=== PATIENT | female | born 1945 | race Caucasian/White ===

== ENCOUNTER → 2016-09-13 | Outpatient (CLI) | payer MEDICARE ==
[2016-03-09 11:12] VITALS: BP 131/58
[~2016-09-13] MED LIST: ACET1TAB32; ACET1TAB33; ACET325T21 PO; AMIO200T2 PO; ASPI325T11 PO; BACL10TA PO; CALC500T PO; CHOL10003 PO; DILT120C80 PO; FERR-26 PO; FURO40TA4 PO; METO10TA81 PO; METO25TA4 PO; MICO30CR11 TP; NITR100C PO; OMEP40CA5 PO; ONDA4TAB11 PO; OXYC5CAP PO; PANT40TA5 PO; PHEN100C PO; POTA20TA12 PO; PYRI50TA8 PO; TRAM50TA PO; WARF1TAB7 PO; WARF3TAB7
--- NOTE | 2016-09-13 12:04 | RAD ---
Bilateral lower extremity venous duplex study 09/13/2016 Clinical history: History of chronic DVT.. Technique: Using a combination of real time ultrasound imaging and color-flow and pulse Doppler imaging techniques along with graded compression and augmentation, duplex evaluation of the deep venous system of the both lower extremities was performed. Multiple images were obtained. Findings: Comparison study is dated 03/08/2016. There is no sonographic evidence of deep venous thrombosis involving the visualized deep venous structures of either lower extremity. The partially occlusive DVT seen involving the left superficial femoral vein on the previous examination has resolved. A 5.8 cm popliteal cyst is seen posterior to the left knee. Impression: The DVT seen on previous examination involving the left superficial femoral vein has resolved. There is no sonographic evidence of deep venous thrombosis involving the visualized deep venous structures of either lower extremity.
== END | disposition home or self-care (01) ==
LOC: US 07:43
PROVIDERS: ATTEND Family Medicine
DX: I82.503 Chronic embolism and thrombosis of unspecified deep veins of lower extremity, bilateral (principal)
CPT/HCPCS: 93970

== ENCOUNTER → 2016-09-26 | Day surgery (SDC) | payer MEDICARE ==
[~2016-09-26] MED LIST changes: +IV RINGERS,LACTATED 1000ML 1,000 ML IV SCH; +LIDOCAINE 2% PF Vial for OR 5 ML VIAL. ONE; +METOPROLOL TARTRATE 5 MG/5 ML VIAL. IVP ONE; +METOPROLOL TARTRATE 5 MG/5 ML VIAL. ONE; +PROPOFOL 40 ML IV ONE
--- NOTE | 2016-09-26 10:28 | PDOC1 ---
HISTORY & PHYSICAL H&P Obdulia Pittman 1945 09/12/2016 02:20 PM 04/02 [facility] PATIENTS COM[facility] [address] [place] [address]. [phone] Patient: Obdulia Pittman Date of : 1945 Date: 09/12/2016 2:20 PM Visit Type: Office Visit This 70 year old female presents for H/o colorectal polyp and Nausea/vomiting. History of Present Illness: 1. H/o colorectal polyp Prior screening: colonoscopy. Denies risk factors. Pertinent negatives include abdominal pain, change in bowel habits, change in stool caliber, constipation, decreased appetite, diarrhea, melena, nausea, rectal bleeding, vomiting, weight gain and weight loss. Additional information: No family history of colon cancer, No family history of Crohn's/colitis, No NSAID/ASA use and Had colonic polyp removed 3 yrs ago and it was adenomatous polyp. 2. Nausea/vomiting Severity level is: 4. The patient describes it as bilious and clear fluid. The problem ongoing. Denies aggravating factors. Denies relieving factors. Associated symptoms include abdominal pain, bloating, nausea and vomiting. Pertinent negatives include blood in stool, cramping (abdominal), decreased urine output, distention (abdominal), fever and weight loss. Additional information: Has some abdominal pain. Had history of gastric perforation from . Had exploratory and had partial gastrectomy and splenectomy.. INTAKE COMMENTS: Intake Comments: Nurse Note: the pt is here today to schedule an colonoscopy for a h/o colon polyps in 2013. PROBLEM LIST: Problem Description Onset Date DVT 06/11/2014 Acute pulmonary embolism 06/11/2014 residential current use of anticoagulant 05/21/2015 Peptic ulcer disease 01/21/2014 Anemia 01/21/2014 Colonic polyps 01/21/2014 Asthma 01/21/2014 Tachycardia bradycardia syndrome 01/21/2014 Gastroesophageal reflux disease 07/30/2013 Pericardial effusion 04/07/2016 PAST MEDICAL/SURGICAL HISTORY (Detailed) Disease/disorder Onset Date Management Date Comments knee replacement Cataract extraction Allergies Anemia Asthma Colonic polyps Gastroesophageal reflux disease Peptic ulcer disease tachy/ce arrthmia syndrome. DIAGNOSTICS HISTORY: Test Ordered Interpretation Result completed Abdomen MRI WITHOUT Contrast 04/06/2014 abnormal Imp: ther are multiple hepatic cysts. There is intrahepatic and extrahepatic biliary ductal dilation although, there has been cholecystectomy and findings sometimes can be normally seen after cholecystectomy, no intraluminal filling defest identified. There is small to moderate left pleural effusion. 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 04/13/2014 Test Ordered Ordering Comments Modifier Abdomen MRI WITHOUT Contrast 04/06/2014 Medications (Active): Started Medication Directions Instruction Stopped 09/12/2016 acetaminophen 300 mg-codeine 15 mg tablet take 1 tablet by oral route twice daily as needed 01/14/2016 alpha lipoic acid 100 mg capsule take 1 capsule by mouth daily 01/14/2016 aspirin 325 mg tablet take 1 tablet by oral route every hour as needed 01/14/2016 Kelp (iodine) 150 mcg tablet take 1 tablet by mouth daily 07/28/2016 METOPROLOL 25MG TAB TART Take 1 tablet by mouth 2 times every day Probiotic take 1 (1000mg) capsule by mouth daily 01/14/2016 turmeric root extract 500 mg capsule take 1 tablet by mouth daily 01/14/2016 Vitamin B-6 100 mg tablet take 1 tablet by mouth daily 01/14/2016 Vitamin D3 400 unit tablet take 3 tablet by mouth daily Allergies: Ingredient Reaction Medication Name Comment MORPHINE MEPERIDINE HCL Demerol DEXAMETHASONE PENICILLINS BARIUM SULFATE Volumen DIAZEPAM TRAMADOL Itching REVIEW OF SYSTEMS System Neg/Pos Details Constitutional Negative Chills, fever, malaise, weight gain and weight loss. ENMT Negative Sore throat. Eyes Negative Double vision. Respiratory Negative Dyspnea and wheezing. Cardio Negative Chest pain and irregular heartbeat/palpitations. GI Positive Abdominal pain, Bloating, Nausea, Vomiting, See HPI. GI Negative Abdominal cramping, abdominal distention, blood in stool, change in bowel habits, change in stool caliber, constipation, decreased appetite, diarrhea, melena, see HPI and rectal bleeding. Negative Decreased urine output, dysuria and hematuria. Endocrine Negative Cold intolerance and heat intolerance. Psych Negative Anxiety. Integumentary Negative Hives and rash. MS Negative Joint pain. Domingo/Lymph Negative Easy bleeding and easy bruising. Allergic/Immuno Negative Food allergies. VITAL SIGNS Time BP mm/Hg Pulse /min Resp /min Temp F Ht ft Ht in Ht cm Wt lb Wt kg BMI kg/ m2 BSA m2 O2 Sat% 2:04 PM 110/73 93 97.9 5.0 4.50 163.83 280.60 127.278 47.42 97 Time Measured by 2:04 PM Skylar Garzon PHYSICAL EXAM: Exam Findings Details Constitutional Normal Well developed. Eyes Normal Conjunctiva - Right: Normal, Left: Normal. Sclera - Right: Normal, Left: Normal. Nasopharynx Normal Lips/teeth/gums - Normal. Neck Exam Normal Inspection - Normal. Thyroid gland - Normal. Respiratory Normal Inspection - Normal. Auscultation - Normal. Cardiovascular Normal Regular rate and rhythm. No murmurs, gallops, or rubs. Vascular Normal Pulses - Carotids: Normal, Femoral: Normal, Dorsalis pedis: Normal. Abdomen Normal Inspection - Normal. Anterior palpation - No guarding. No abdominal tenderness. No hepatic enlargement. No splenic enlargement. No hernia. No Ascites. Skin Normal Inspection - Normal. Extremity Normal No edema. Psychiatric Normal Oriented to time, place, person, and situation. Appropriate mood and effect. Assessment/Plan # Detail Type Description 1. Assessment Non-intractable cyclical vomiting with nausea (G43.A0). Patient Plan schedule EGD at [facility] Plan Orders Further diagnostic evaluations ordered today include(s) EGD to be performed today. 2. Assessment History of colon polyps (Z86.010). Patient Plan schedule colonoscopy at [facility] Plan Orders Further diagnostic evaluations ordered today include(s) Colonoscopy to be performed today. She is to schedule a follow-up visit with Robinson Villagomez MD upon completion of work-up Electronically signed by: Robinson Villagomez MD 09/12/2016 04:47 PM Document generated by: Robinson Villagomez 09/12/2016 04:47 PM Joanne Islas MD, Family Practice; David Valderrama MD Internal Medicine; Cassandra Meléndez MD, Internal Medicine; Aniya Villagomez MD Internal Medicine; Robinson Villagomez MD, Gastroenterology; Ubaldo Grant MD, Rheumatology, S. Boris Dumont, Physical Medicine/Rehab Chris Heredia APRN ------ 09/26/16 Patient seen and examined. No change in H&P ROBINSON VILLAGOMEZ MD Sep 26, 2016 10:28
--- NOTE | 2016-09-26 11:33 | PDOC4 ---
GI OP Report - Dr. Clinton Date/Time DATE: 09/26/16 TIME: 11:31 Attending Physician Ariel Clinton MD Referring Physician Indications Epigastric abdominal pain, Follow-up of chronic gastric ulcer with perforation Pre-Op See the Anesthesia note for documentation of the administered medications Procedures Upper GI endoscopy Findings - LA Grade A reflux esophagitis. Biopsied. - Normal stomach. - Normal examined duodenum. Plan - Discharge patient to home. - Patient has a contact number available for emergencies. The signs and symptoms of potential delayed complications were discussed with the patient. Return to normal activities tomorrow. Written discharge instructions were provided to the patient. - Resume regular diet. - Continue present medications. - Await pathology results. - Return to my office in 2 weeks. ARIEL CLINTON MD Sep 26, 2016 11:33
--- NOTE | 2016-09-26 11:34 | PDOC4 ---
GI OP Report - Dr. Clinton Date/Time DATE: 09/26/16 TIME: 11:33 Attending Physician Ariel Clinton MD Referring Physician Indications Personal history of colonic polyps Pre-Op See the Anesthesia note for documentation of the administered medications Procedures Colonoscopy Findings - Diverticulosis in the sigmoid colon. - The examination was otherwise normal on direct and retroflexion views. - No specimens collected. Plan - Discharge patient to home. - Patient has a contact number available for emergencies. The signs and symptoms of potential delayed complications were discussed with the patient. Return to normal activities tomorrow. Written discharge instructions were provided to the patient. - Resume regular diet. - Continue present medications. - Perform a single contrast barium enema at appointment to be scheduled. - Repeat colonoscopy in 5 years for surveillance. - Return to my office after studies are complete. ARIEL CLINTON MD Sep 26, 2016 11:34
[2016-09-26 11:52] VITALS: BP 132/74
--- NOTE | 2016-09-27 12:05 | PATHOLOGY ---
PATHOLOGY REPORT * * * * * * * * FINAL DIAGNOSIS: Esophageal biopsy, lower esophagus: - Segment of esophagogastric mucosa showing active chronic inflammation. COMMENT: Sections of the lower esophageal biopsy reveal a segment of esophagogastric mucosa consisting predominantly of gastric mucosa. There is mild to moderate active chronic inflammation. There is no evidence of Gill's change, dysplasia, or malignancy. (JPM:mgr; 09/27/2016) REPORT ELECTRONICALLY SIGNED BY: Spencer Mcginnis M.D. DATE/TIME: 09/27/2016 12:05 * * * * * * * * GROSS PATHOLOGY: Received in formalin labeled "Obdulia Pittman, lower esophagus," is a segment of nicholson soft tissue measuring 0.3 cm in maximum dimension. The specimen is submitted entirely in cassette A1. (JPM; 09/26/16) INITIAL CPT CODE(S): A; 90350 Professional services performed [place] [facility] [address] Technical services performed by [facility] at [address] [place] [address]. SPECIMEN(S) RECEIVED: A.Lower esophagus CLINICAL HISTORY: Dysphagia, history of colon polyps; reflux esophagitis PATIENT: OBDULIA PITTMAN /AGE: 8 1945 (Age: 70) PATIENT #: [id number] ALT CASE #: SPECIMEN COLLECTION DATE: 09/26/2016 SPECIMEN RECEIVED DATE: 09/26/2016 [facility] - [address] [place] [address] - PHONE: [phone] * * * END OF REPORT * * *
== END | disposition home or self-care (01) ==
LOC: ENDOS 10:08
PROVIDERS: ATTEND Internal Medicine Gastroenterology
DX: Z09 Encounter for follow-up examination after completed treatment for conditions other than malignant neoplasm (principal); Z87.19 Personal history of other diseases of the digestive system; K57.30 Diverticulosis of large intestine without perforation or abscess without bleeding; K56.2 Volvulus; K21.0 Gastro-esophageal reflux disease with esophagitis; K25.5 Chronic or unspecified gastric ulcer with perforation; Z98.41 Cataract extraction status, right eye; Z98.42 Cataract extraction status, left eye; Z90.49 Acquired absence of other specified parts of digestive tract; Z86.718 Personal history of other venous thrombosis and embolism; J45.909 Unspecified asthma, uncomplicated; E66.9 Obesity, unspecified; Z68.45 Body mass index [BMI] 70 or greater, adult; Z87.39 Personal history of other diseases of the musculoskeletal system and connective tissue; Z86.14 Personal history of Methicillin resistant Staphylococcus aureus infection; Z88.6 Allergy status to analgesic agent; Z88.0 Allergy status to penicillin; Z88.8 Allergy status to other drugs, medicaments and biological substances
CPT/HCPCS: 43239; 45378; 88305; J2704; J3490

== ENCOUNTER → 2017-01-16 | Outpatient (CLI) | payer MEDICARE ==
[2016-09-26 11:52] VITALS: BP 132/74
[~2017-01-16] MED LIST changes: -IV RINGERS,LACTATED 1000ML 1,000 ML IV SCH; -LIDOCAINE 2% PF Vial for OR 5 ML VIAL. ONE; -METOPROLOL TARTRATE 5 MG/5 ML VIAL. IVP ONE; -METOPROLOL TARTRATE 5 MG/5 ML VIAL. ONE; -PROPOFOL 40 ML IV ONE
--- NOTE | 2017-01-16 12:19 | CARD ---
APPROVED REPORT EXAM: Two-dimensional and M-mode echocardiogram with Doppler and color Doppler. Other Information Quality : Average INDICATION Pericardial Effusion 2D DIMENSIONS Left Atrium(2D)4.4 (1.6-4.0cm)IVSd1.2 (0.7-1.1cm) Aortic Root(2D)3.3 (2.0-3.7cm)LVDd4.3 (3.9-5.9cm) LVOT Diameter1.7 (1.8-2.4cm)PWd1.3 (0.7-1.1cm) LVDs3.1 (2.5-4.0cm)FS (%) 29.1 % SV46.9 mlLVEF(%)56.1 (>50%) Aortic Valve AoV Peak Talon.99.7cm/sAoV VTI21.3cm AO Peak GR.4.0mmHgLVOT Peak Talon.89.1cm/s AO Mean GR.2mmHgAVA (VMAX)2.10cm2 JONATHAN (VTI)2.20cm2 Mitral Valve MV E Nsjsbvst80.8cm/sMV DECEL VEMA690wi MV A Qscslbez55.2cm/sE/A Ratio0.7 Tricuspid Valve TR P. Apegkjuq498ij/sRAP CHUIAVDR3ddBy TR Peak Gr.40hkNcRZTL63vcNb LEFT VENTRICLE The left ventricle is normal size. There is mild concentric left ventricular hypertrophy. The left ve ntricular systolic function is normal. The Ejection Fraction is 50-55%. There is normal LV segmental wall motion. Transmitral Doppler flow pattern is Grade I-abnormal relaxation pattern. RIGHT VENTRICLE The right ventricle is normal size. The right ventricle is mildly hypertrophied. The right ventricula r systolic function is normal. ATRIA The left atrium is moderately dilated. The right atrium is mildly dilated. Possible mobile interatria l septum noted. AORTIC VALVE The aortic valve is mildly thickened but opens well. Doppler and Color Flow revealed no significant a ortic regurgitation. There is no significant aortic valvular stenosis. MITRAL VALVE The mitral valve leaflets are mildly calcified. There is no evidence of mitral valve prolapse. There is no mitral valve stenosis. Doppler and Color Flow revealed no mitral valve regurgitation noted. TRICUSPID VALVE The tricuspid valve is normal in structure and function. Doppler and Color Flow revealed mild tricusp id regurgitation. There is mild pulmonary hypertension. The PA pressure was estimated at 32 mmHg. The re is no tricuspid valve prolapse or vegetation. There is no tricuspid valve stenosis. PULMONIC VALVE The pulmonary valve is normal in structure and function. Doppler and Color Flow revealed no pulmonic valvular regurgitation. There is no pulmonic valvular stenosis. GREAT VESSELS The aortic root is normal in size. The ascending aorta is normal in size. The IVC is normal in size a nd collapses >50% with inspiration. PERICARDIAL EFFUSION There is no pleural effusion. There is no evidence of significant pericardial effusion. Critical Notification Critical Value: No <Conclusion> Technically difficult study. The left ventricular systolic function is normal. The Ejection Fraction is 50-55%. There is normal LV segmental wall motion. Transmitral Doppler flow pattern is Grade I-abnormal relaxation pattern. The left atrium is moderately dilated. Mild tricuspid regurgitation. The PA pressure was estimated at 32 mmHg. There is no evidence of significant pericardial effusion.
== END | disposition home or self-care (01) ==
LOC: ECHO 07:50
PROVIDERS: ATTEND Internal Medicine Cardiovascular Disease
DX: I07.1 Rheumatic tricuspid insufficiency (principal); I31.3 Pericardial effusion (noninflammatory)
CPT/HCPCS: 93306

== ENCOUNTER → 2017-07-27 | Outpatient (CLI) | payer MEDICARE | END | disposition home or self-care (01) | LOC: ECHO 08:30 | DX: R00.2 Palpitations (principal); R01.1 Cardiac murmur, unspecified | CPT/HCPCS: 93306 ==

== ENCOUNTER → 2017-10-09 | Outpatient (CLI) | payer MEDICARE ==
[~2017-10-09] MED LIST changes: -ACET1TAB32; -ACET1TAB33; -ACET325T21 PO; -AMIO200T2 PO; -ASPI325T11 PO; -BACL10TA PO; -CALC500T PO; -CHOL10003 PO; -DILT120C80 PO; -FERR-26 PO; -FURO40TA4 PO; +IOHEXOL 240 MG/ML 50ML VIAL. PO; +IOHEXOL 300 MG/ML 100ML VIAL. IV; -METO10TA81 PO; -METO25TA4 PO; -MICO30CR11 TP; -NITR100C PO; -OMEP40CA5 PO; -ONDA4TAB11 PO; -OXYC5CAP PO; -PANT40TA5 PO; -PHEN100C PO; -POTA20TA12 PO; -PYRI50TA8 PO; -TRAM50TA PO; -WARF1TAB7 PO; -WARF3TAB7
== END | disposition home or self-care (01) ==
LOC: CT 12:33
DX: K43.9 Ventral hernia without obstruction or gangrene (principal); K57.90 Diverticulosis of intestine, part unspecified, without perforation or abscess without bleeding; M47.897 Other spondylosis, lumbosacral region; I11.0 Hypertensive heart disease with heart failure; I50.9 Heart failure, unspecified; K21.9 Gastro-esophageal reflux disease without esophagitis; J45.909 Unspecified asthma, uncomplicated; E78.5 Hyperlipidemia, unspecified; E78.00 Pure hypercholesterolemia, unspecified
CPT/HCPCS: 74177; Q9966; Q9967

== ENCOUNTER 2018-01-30 08:40 | Outpatient (CLI) | payer MEDICARE ==
[2018-01-30] VITALS (9 sets, daily range): BP systolic 91–177; BP diastolic 65–84
[~2018-01-30] VITALS: Ht 170.2 cm; Wt 113.9 kg
[~2018-01-30 08:40] MED LIST changes: +ACET1TAB32; +ACET1TAB33; +ACET325T21 PO; +AMIO200T4 PO; +ASPI325T11 PO; +BACL10TA PO; +CALC500T PO; +CHOL10003 PO; +COCO1000 PO; +DILT120C80 PO; +FERR325T14 PO; +FURO40TA4 PO; -IOHEXOL 240 MG/ML 50ML VIAL. PO; -IOHEXOL 300 MG/ML 100ML VIAL. IV; +MAGN400C PO; +METO10TA81 PO; +METO25TA4 PO; +MICO30CR11 TP; +NITR100C PO; +OMEP40CA5 PO; +ONDA4TAB11 PO; +OXYC5CAP PO; +PANT40TA5 PO; +PHEN100C PO; +POTA10TA17 PO; +POTA20TA12 PO; +PYRI50TA8 PO; +SERT50TA PO; +TRAM50TA PO; +WARF1TAB69 PO; +WARF3TAB50
[2018-01-30] MEDS ORDERED: IOHEXOL 240 MG/ML 50ML VIAL. PO ONE (09:00)
[2018-01-30] MEDS ORDERED: IOHEXOL 300 MG/ML 100ML VIAL. IV ONE (09:00)
[2018-01-30] MEDS ORDERED: IOHEXOL 300 MG/ML 100ML VIAL. ONE (09:30)
[2018-01-30] MEDS ORDERED: IOHEXOL 240 MG/ML 50ML VIAL. ONE (09:30)
--- NOTE | 2018-01-30 10:51 | RAD ---
CT Abdomen and Pelvis With Intravenous Contrast: History: Abdominal pain. Seroma status post surgery. Comparison: CT abdomen pelvis October 09, 2017. Technique: After administration of oral and intravenous contrast, 75 mL Omnipaque-300, CT of the abdomen and pelvis was performed. Exposure: One or more of the following individualized dose reduction techniques were utilized for this examination: 1. Automated exposure control 2. Adjustment of the mA and/or kV according to patient size 3. Use of iterative reconstruction technique Findings: Small hiatal hernia is seen. Liver demonstrates numerous cysts. Spleen is surgically absent. Pancreas is unremarkable. Gallbladder is absent. Intrahepatic and extra hepatic biliary dilatation is favored to be reservoir effect from patient's cholecystectomy. IVC filter is seen. Bilateral kidneys enhance symmetrically. No bowel obstruction or inflammation is identified. Urinary bladder is unremarkable. Uterus is absent. Right ovary demonstrates a small intermediate attenuation lesion measuring about 2.5 cm; this is not confidently seen on previous study. There has been interval ventral hernia repair. At the level of umbilicus, there is a subcutaneous fluid collection which measures 8.2 x 2.4 centimeters in maximum axial dimension x 4.4 cm in craniocaudal dimension. Within this fluid collection (which is located just superficial to the fascia of rectus abdominis musculature) demonstrates several small foci of gas. Subcutaneous soft tissues of the ventral abdominal wall demonstrates additional ill-defined foci of stranding scattered amount of fluid. Small radiodensities seen at the level of umbilicus, could be small surgical clip. There is grade 1 spondylolisthesis at L5-S1 secondary to bilateral L5 pars defects. Multilevel spinal degeneration is present. Impression: 1. Interval ventral hernia repair. There is subcutaneous soft tissue stranding and irregularity, presumably postoperative. At the level of the umbilicus, just superficial to the rectus abdominis musculature, there is a focal fluid collection with several foci of gas; the fluid collection measures 8.2 x 2.4 cm in maximum axial dimension x4.4 cm in craniocaudal dimension. If surgery was performed less than 14 days ago, the foci of gas could be within normal limits in a postoperative seroma/hematoma; if the surgery was performed greater than 14 days ago, then findings would be compatible with gas-forming infection/abscess or a seroma with communication to the skin surface. 2. Interval development of apparent right ovarian lesion measuring 2.5 cm. Attempt at evaluation with ultrasound could be made. 3. Less salient findings as above. Electronically signed by: David Leyva MD (01/30/2018 10:48 AM) [facility]
[2018-01-30 11:09] LABS: BASO % 0 % (0-3); EOS # 0.4 x10^3/uL (0.0-0.7); EOS % 3 % (0-3); HEMATOCRIT 40.8 % (36.0-47.0); HEMOGLOBIN 13.7 g/dL (12.0-15.5); LYMPH # 3.2 x10^3/uL (1.0-4.8); LYMPH % 29 % (24-48); MEAN CORPUSCULAR HEMOGLOBIN 30 pg (25-35); MEAN CORPUSCULAR HGB CONC 34 g/dL (31-37); MEAN CORPUSCULAR VOLUME 90 fL (79-100); MONO % 9 % (0-9); NEUT # 6.5 x10^3uL (1.8-7.7); NEUT % 59 % (31-73); PLATELET COUNT 371 x10^3/uL (140-400); RED BLOOD COUNT 4.52 x10^6/uL (3.50-5.40); RED CELL DISTRIBUTION WIDTH 15.2 % (11.5-14.5); WHITE BLOOD COUNT 11.1 x10^3/uL (4.0-11.0)
[2018-01-30 11:33] LABS: PROTHROMBIN TIME PATIENT 14.1 SEC (11.7-14.0)
[2018-01-30] MEDS ORDERED: LIDOCAINE WITH 8.4% SOD BICARB 3 ML DISP.SYRIN. ONE (12:30)
[2018-01-30] MEDS ORDERED: MIDAZOLAM HCL/PF 2 MG/2 ML VIAL. ONE (12:49)
[2018-01-30] MEDS ORDERED: fentaNYL PF VIAL 100 MCG/2 ML VIAL ONE (12:49)
[2018-01-30] MEDS ORDERED: LIDOCAINE WITH 8.4% SOD BICARB 3 ML DISP.SYRIN. INJ ONE (13:15)
[2018-01-30] MEDS ORDERED: MIDAZOLAM HCL/PF 2 MG/2 ML VIAL. IV ONE (13:15)
[2018-01-30] MEDS ORDERED: fentaNYL PF VIAL 100 MCG/2 ML VIAL IV ONE (13:15)
== END 2018-01-30 14:30 | disposition home or self-care (01) ==
LOC: RAD 08:40
PROVIDERS: ATTEND Specialist
DX: L76.34 Postprocedural seroma of skin and subcutaneous tissue following other procedure (principal); Y83.8 Other surgical procedures as the cause of abnormal reaction of the patient, or of later complication, without mention of misadventure at the time of the procedure
CPT/HCPCS: 10030; 36415; 74177; 77012; 85025; 85610; 85730; 87071; 87075; 87186; A4215; C1729; C1894; J2250; J3010; Q9966; Q9967; 99152; 99153

== ENCOUNTER → 2018-07-04 | Outpatient (CLI) | payer MEDICARE, OTHER ==
[2018-01-30 14:20] VITALS: BP 123/76
[~2018-07-04] MED LIST changes: -CALC500T PO; +CALC500T31 PO; +CONTRAST GIVEN. MC PRN; -DILT120C80 PO; +DILT120C85 PO; +IOHEXOL 240 MG/ML 50ML VIAL. PO ONE; +IOHEXOL 300 MG/ML 100ML VIAL. IV ONE
[2018-07-04 14:31] LABS: GFR 54.5
--- NOTE | 2018-07-04 17:47 | RAD ---
CT of the abdomen and pelvis with contrast, 07/04/2018: HISTORY: Abdominal pain and bruising after hernia repair site Multidetector CT imaging was performed following oral and IV administration of contrast. Comparison is made to a study from 01/30/2018. There is streaky increased density in the subcutaneous soft tissues of the anterior abdominal wall centered at the midline in the periumbilical region. Similar findings were present on the previous study, compatible with chronic inflammation. There is gas related to an ill-defined fluid collection within this process as seen on image 31 of series #2. This small fluid collection measures approximately 3 x 4 cm. This portion of this inflammatory process has worsened since the previous study. On the previous study there was a small elliptical fluid collection related to the inferior aspect of this process which has resolved. No extension of this process into the abdominal cavity is seen. There is mild basilar linear scarring. Multiple hepatic cysts are again noted. There is unchanged prominence of the common hepatic duct probably secondary to the postcholecystectomy state. No pancreatic abnormality is seen. The spleen is absent, presumably on a postsurgical basis. No renal abnormality is detected. There is mild aortic calcific plaquing. An inferior vena cava filter is in place in an infrarenal location. No abdominal or pelvic adenopathy is seen. The uterus is surgically absent. The bowel loops are not dilated. A small hiatal hernia is noted. No free fluid or free air is seen within the abdomen or pelvis. Moderate multilevel degenerative changes are present in the spine. There is a mild anterolisthesis at L5-S1. IMPRESSION: 1. Chronic or recurrent inflammatory process in the anterior abdominal wall containing a small irregular collection of fluid and gas raising the possibility of abscess. 2. Additional miscellaneous chronic findings as described above. PQRS Compliance Statement: One or more of the following individualized dose reduction techniques were utilized for this examination: 1. Automated exposure control 2. Adjustment of the mA and/or kV according to patient size 3. Use of iterative reconstruction technique Electronically signed by: Renan Burkett MD (07/04/2018 5:44 PM) [facility]
== END | disposition home or self-care (01) ==
LOC: CT 13:42
PROVIDERS: ATTEND Specialist
DX: K44.9 Diaphragmatic hernia without obstruction or gangrene (principal); K43.9 Ventral hernia without obstruction or gangrene; K76.89 Other specified diseases of liver
CPT/HCPCS: 36415; 74177; 82565; 84520; Q9966; Q9967

== ENCOUNTER → 2018-08-01 | Outpatient (CLI) | payer MEDICARE, OTHER ==
[2018-01-30 14:20] VITALS: BP 123/76
[~2018-08-01] MED LIST changes: -CONTRAST GIVEN. MC PRN; -IOHEXOL 240 MG/ML 50ML VIAL. PO ONE; -IOHEXOL 300 MG/ML 100ML VIAL. IV ONE
--- NOTE | 2018-08-01 09:22 | CARD ---
MR#: [id number] Date of Study: 08/01/2018 Ordering Physician: AMMON BONDS, Referring Physician: AMMON BONDS, Tech: Mojgan Zuñiga JAVIER APPROVED REPORT EXAM: Two-dimensional and M-mode echocardiogram with Doppler and color Doppler. Other Information Quality : Good INDICATION Pericardial Effusion 2D DIMENSIONS RVDd3.8 (2.9-3.5cm)Left Atrium(2D)4.2 (1.6-4.0cm) IVSd1.0 (0.7-1.1cm)Aortic Root(2D)2.7 (2.0-3.7cm) LVDd4.9 (3.9-5.9cm)LVOT Diameter2.2 (1.8-2.4cm) PWd0.8 (0.7-1.1cm)LVDs3.2 (2.5-4.0cm) FS (%) 34.5 %SV72.4 ml LVEF(%)63.4 (>50%) Aortic Valve AoV Peak Talon.111.2cm/sAoV VTI22.3cm AO Peak GR.4.9mmHgLVOT Peak Talon.82.6cm/s LVOT VTI 23.97cmAO Mean GR.3mmHg JONATHAN (VMAX)2.26cb0EAT (VTI)4.11cm2 Mitral Valve MV E Ttnsqduj47.6cm/sMV DECEL BACU777wt MV A Jkmjevbe51.8cm/sMV QVK05oi E/A Ratio0.8MVA (PHT)2.63cm2 TDI E/Lateral E'7.9E/Medial E'9.6 Tricuspid Valve TR P. Dhrxtwky483ur/sRAP LIRINGES3arAo TR Peak Gr.12dfMzGUWO08lxCn Pulmonary Vein S1 Zuchxwtr35.0cm/sD2 Xhwipbqx92.4cm/s LEFT VENTRICLE The left ventricle is normal size. There is normal left ventricular wall thickness. The left ventricu lar systolic function is normal. The Ejection Fraction is 55-60%. There is normal LV segmental wall m otion. Transmitral Doppler flow pattern is Grade I-abnormal relaxation pattern. RIGHT VENTRICLE The right ventricle is normal size. The right ventricular systolic function is normal. ATRIA The left atrium is mildly dilated. The right atrium is moderately dilated. The interatrial septum is intact with no evidence for an atrial septal defect or patent foramen ovale as noted on 2-D or Dopple r imaging. AORTIC VALVE The aortic valve is calcified but opens well. Doppler and Color Flow revealed no significant aortic r egurgitation. There is no significant aortic valvular stenosis. MITRAL VALVE The mitral valve is calcified but opens well. There is no evidence of mitral valve prolapse. There is no mitral valve stenosis. Doppler and Color-flow revealed trace mitral regurgitation. TRICUSPID VALVE The tricuspid valve is normal in structure and function. Doppler and Color Flow revealed trace tricus pid regurgitation. The PA pressure was estimated at 27 mmHg. There is no tricuspid valve stenosis. PULMONIC VALVE The pulmonic valve is not well visualized. Doppler and Color Flow revealed no pulmonic valvular regur gitation. There is no pulmonic valvular stenosis. GREAT VESSELS The aortic root is normal in size. The ascending aorta is mildly dilated at 3.4 cm. The IVC is normal in size and collapses >50% with inspiration. PERICARDIAL EFFUSION There is no evidence of significant pericardial effusion. Critical Notification Critical Value: No <Conclusion> The left ventricular systolic function is normal. The Ejection Fraction is 55-60%. There is normal LV segmental wall motion. Transmitral Doppler flow pattern is Grade I-abnormal relaxation pattern. Trace mitral regurgitation. Trace tricuspid regurgitation. The PA pressure was estimated at 27 mmHg. There is no evidence of significant pericardial effusion. Signed by : Adrien Mendez, Electronically Approved : 08/01/2018 09:21:50
== END | disposition home or self-care (01) ==
LOC: ECHO 08:10
PROVIDERS: ATTEND Internal Medicine Cardiovascular Disease
DX: I08.0 Rheumatic disorders of both mitral and aortic valves (principal); I31.3 Pericardial effusion (noninflammatory)
CPT/HCPCS: 93306

== ENCOUNTER 2018-12-25 08:57 | Inpatient (IN) | payer MEDICARE, OTHER ==
[~2018-12-25] VITALS: Ht 170.2 cm; Wt 112.5 kg
[~2018-12-25 08:57] MED LIST changes: -DILT120C85 PO; +DILT120C99 PO; +OMEP40CA45 PO; -OMEP40CA5 PO; -PANT40TA5 PO; +PANT40TA77 PO
--- NOTE | 2018-12-25 09:47 | RAD ---
Examination: FOOT RIGHT 3V History: Fall, pain Comparison/Correlation: None Findings: Total 3 images of the right foot were obtained. Osteopenia is noted. No acute fracture or bony destruction. Small calcaneal spur is present. Significant interphalangeal joint space narrowing is identified. Degenerative changes of the midfoot also seen. Impression: No fracture. Electronically signed by: Bereket Rodrigues MD (12/25/2018 9:44 AM) [facility]
--- NOTE | 2018-12-25 09:59 | RAD ---
Examination: KNEE BILAT 3V History: Fall, pain Comparison/Correlation: None Findings: 3 images of the right knee and 3 images of the left knee were obtained. Osteopenia noted. Right knee There is a fat fluid level within the right knee joint capsule of large size. Total right knee joint arthroplasty is present. No evidence of loosening. Left knee Severe left medial compartment narrowing is present. Spurring about the left knee is noted. Patellofemoral compartment narrowing is evident. Small left knee joint effusion is present. Impression: Severe left knee joint degenerative changes. Right lipohemarthrosis. Correlate with surgical history. Fracture line is not evident. Correlate for possibility of occult fracture. Electronically signed by: Bereket Rodrigues MD (12/25/2018 9:56 AM) [facility]
--- NOTE | 2018-12-25 11:13 | RAD ---
Examination: CT LOWER EXTREMITY WO RIGHT History: Right knee pain Comparison/Correlation: 12/25/2018 bilateral knee x-ray exam Findings: Axial images of the right knee were obtained without contrast. Sagittal and coronal reformatted images were provided. Seated in streak artifact limits evaluation due to the presence of right total knee joint prosthesis.. No loosening suggested although streak artifact limits evaluation. Lipohemarthrosis is present. Fracture may present involving the distal femoral metaphysis posteromedially near the prosthesis. Subtle cortical defect is questioned at this site on sagittal image 34 of series 9. This finding is not well delineated on other planes possibly due to small size and streak artifact. Proximal tibia is unremarkable. Patella is grossly unremarkable. Proximal fibula is unremarkable. Quadriceps and patellar tendons appear to be intact on the basis of CT imaging. Impression: Nondisplaced fracture is questioned involving the distal femoral metaphysis posteromedially near the prosthesis. Lipohemarthrosis. PQRS Compliance Statement: One or more of the following individualized dose reduction techniques were utilized for this examination: 1. Automated exposure control 2. Adjustment of the mA and/or kV according to patient size 3. Use of iterative reconstruction technique Electronically signed by: Bereket Rodrigues MD (12/25/2018 11:10 AM) [facility]
[2018-12-25 15:15] VITALS: BP 102/60
[2018-12-25] MEDS ORDERED: ACETAMINOPHEN 325 MG TABLET. PO PRN (15:15)
[2018-12-25] MEDS ORDERED: ONDANSETRON PF 4 MG/2 ML VIAL. IV PRN (15:15)
--- NOTE | 2018-12-25 15:26 | PHYS DOC ---
Past Medical History Past Medical History: High Cholesterol, Other Additional Past Medical Histor: DVT, PE on chronic coumadin, tachycardia Past Surgical History: Knee Replacement, Other Additional Past Surgical Histo: spleenectomy, 2 hernia repairs and part of stomach removed, IVC filter, rabia Alcohol Use: None Drug Use: None Adult General Chief Complaint Chief Complaint: MECHANICAL FALL HPI HPI Patient is a 73 year old female who presents to the ED today complaining of 8 out of 10 right knee pain, right foot pain, left knee pain that began yesterday after she missed a step on her deck and fell landing on the knee. Patient states she was able to ambulate yesterday but this morning she was unable to ambulate. Patient denies any loss of consciousness when she fell. Denies any head and neck pain. She states her pain is worse on weight bearing. She states immobilization has been relieving some of the pain. She states she has previous history of right knee replacement approximately 8-9 years ago. Review of Systems Review of Systems Constitutional: Denies fever or chills [] : Denies dysuria or hematuria [] Musculoskeletal: Reports right knee pain, left knee pain, right foot pain. Integument: Denies rash or skin lesions [] Neurologic: Denies headache, focal weakness or sensory changes [] Endocrine: Denies polyuria or polydipsia [] All other systems were reviewed and found to be within normal limits, except as documented in this note. Allergies Allergies Allergies Coded Allergies Type Severity Reaction Last Updated Verified Penicillins Allergy Intermediate Hives 12/31/17 Yes dexamethasone Allergy Intermediate 12/31/17 Yes diazepam Allergy Intermediate 12/31/17 Yes meperidine Allergy Intermediate Hives 12/31/17 Yes morphine Allergy Intermediate Nausea and Vomiting 12/31/17 Yes Physical Exam Physical Exam Constitutional: Well developed, well nourished, no acute distress, non-toxic appearance. [] Skin: Warm, dry, no erythema, no rash. [] Back: No tenderness, no CVA tenderness. [] Extremities: Morbidly obese patient, right knee with old healed surgical incision on the anterior aspect. Limited range of motion to the right knee due to pain. +2 right pedal pulse. Cap refill less than 2 seconds the right lower extremity. Neurologic: Alert and oriented X 3, normal motor function, normal sensory function, no focal deficits noted. [] Psychologic: Affect normal, judgement normal, mood normal. [] Current Patient Data Vital Signs Vital Signs Date Time Temp Pulse Resp B/P (MAP) Pulse Ox O2 Delivery O2 Flow Rate FiO2 12/25/18 13:54 76 16 96 12/25/18 09:41 98.4 136/77 (96) Room Air 98.4 EKG EKG [] Radiology/Procedures Radiology/Procedures []PROCEDURE: FOOT RIGHT 3V Examination: FOOT RIGHT 3V History: Fall, pain Comparison/Correlation: None Findings: Total 3 images of the right foot were obtained. Osteopenia is noted. No acute fracture or bony destruction. Small calcaneal spur is present. Significant interphalangeal joint space narrowing is identified. Degenerative changes of the midfoot also seen. Impression: No fracture. Electronically signed by: Bereket Disla MD (12/25/2018 9:44 AM) [facility] DICTATED and SIGNED BY: BEREKET DISLA MD DATE: 12/25/18 0944 PROCEDURE: KNEE BILAT 3V Examination: KNEE BILAT 3V History: Fall, pain Comparison/Correlation: None Findings: 3 images of the right knee and 3 images of the left knee were obtained. Osteopenia noted. Right knee There is a fat fluid level within the right knee joint capsule of large size. Total right knee joint arthroplasty is present. No evidence of loosening. Left knee Severe left medial compartment narrowing is present. Spurring about the left knee is noted. Patellofemoral compartment narrowing is evident. Small left knee joint effusion is present. Impression: Severe left knee joint degenerative changes. Right lipohemarthrosis. Correlate with surgical history. Fracture line is not evident. Correlate for possibility of occult fracture. Electronically signed by: Bereket Disla MD (12/25/2018 9:56 AM) [facility] DICTATED and SIGNED BY: BEREKET DISLA MD DATE: 12/25/18 0956 PROCEDURE: CT LOWER EXTREMITY WO RIGHT Examination: CT LOWER EXTREMITY WO RIGHT History: Right knee pain Comparison/Correlation: 12/25/2018 bilateral knee x-ray exam Findings: Axial images of the right knee were obtained without contrast. Sagittal and coronal reformatted images were provided. Seated in streak artifact limits evaluation due to the presence of right total knee joint prosthesis.. No loosening suggested although streak artifact limits evaluation. Lipohemarthrosis is present. Fracture may present involving the distal femoral metaphysis posteromedially near the prosthesis. Subtle cortical defect is questioned at this site on sagittal image 34 of series 9. This finding is not well delineated on other planes possibly due to small size and streak artifact. Proximal tibia is unremarkable. Patella is grossly unremarkable. Proximal fibula is unremarkable. Quadriceps and patellar tendons appear to be intact on the basis of CT imaging. Impression: Nondisplaced fracture is questioned involving the distal femoral metaphysis posteromedially near the prosthesis. Lipohemarthrosis. PQRS Compliance Statement: One or more of the following individualized dose reduction techniques were utilized for this examination: 1. Automated exposure control 2. Adjustment of the mA and/or kV according to patient size 3. Use of iterative reconstruction technique Electronically signed by: Bereket Disla MD (12/25/2018 11:10 AM) [facility] DICTATED and SIGNED BY: BEREKET DISLA MD DATE: 12/25/18 1110 Course & Med Decision Making Course & Med Decision Making Pertinent Labs and Imaging studies reviewed. (See chart for details) This is a 73-year-old female patient who presents to the ED today complaining of right knee pain status post falling yesterday. Right knee x-rays interpreted by radiologist were noted for possible occult fx of the distal femur. CT of the right knee was obtained CT of the right knee noted for -Nondisplaced fracture is questioned involving the distal femoral metaphysis posteromedially near the prosthesis. Lipohemarthrosis. Spoke with Dr. Guillaume who reviewed the CAT scan, he stated he does not see any fracture on the CT. He requested we put patient in a knee immobilizer and see if she can ambulate, she is unable to ambulate she can be admitted under the hospitalist. Patient was placed in a knee immobilizer to the ED RN, neurovascular exam, the try to ambulate, she was unable to put weight on the right lower extremity. Spoke with Dr. Torres who accepted patient for admission Routine consult placed for orthopedic doctor Allyson Disclaimer Allyson Disclaimer This electronic medical record was generated, in whole or in part, using a voice recognition dictation system. Departure Departure Impression: Primary Impression: Knee pain Additional Impressions: Fall Unable to ambulate Right foot sprain Left knee pain Disposition: ADMITTED INPATIENT Condition: STABLE Referrals: NICKY BREAUX (PCP) Problem Qualifiers Primary Impression: Knee pain Chronicity: acute Laterality: right Qualified Codes: M25.561 - Pain in right knee Additional Impressions: Fall Encounter type: initial encounter Qualified Codes: W19.XXXA - Unspecified fall, initial encounter Right foot sprain Encounter type: initial encounter Qualified Codes: S93.601A - Unspecified sprain of right foot, initial encounter Left knee pain Chronicity: acute Qualified Codes: M25.562 - Pain in left knee LETY DONALD SCAFFOLD ERECTOR Dec 25, 2018 15:26
[2018-12-25] MEDS ORDERED: BUPR150T11 (16:30)
[2018-12-25] MEDS ORDERED: FLU VAX QS 2019-20 (36MOS+)/PF 0.5 ML SYRINGE. VAX IM ONE (16:30)
[2018-12-25] MEDS ORDERED: TURM500C7 PO (16:30)
[2018-12-25] MEDS: oxyCODONE/APAP 5/325 1 TAB TABLET PO PRN (18:07)
[2018-12-25 19:00] VITALS: BP 104/51
[2018-12-25] MEDS: buPROPion SR 150 MG TABLET.SA PO SCH (20:25)
[2018-12-25] MEDS: METOPROLOL TART IMMED RELEASE 25 MG TABLET. PO SCH (20:27)
[2018-12-25 23:00] VITALS: BP 117/63
[2018-12-26] VITALS (8 sets, daily range): BP systolic 92–130; BP diastolic 40–75
--- NOTE | 2018-12-26 00:53 | CONS ---
DATE OF CONSULTATION: 12/25/2018 ORTHOPEDIC CONSULTATION REASON FOR CONSULTATION: Fall with right knee pain. REQUESTING PHYSICIAN: Joanne Torres MD HISTORY OF PRESENT ILLNESS: The patient is a 73-year-old female who missed a step on her deck and fell landing really on the right knee, pain somewhat less than the left knee. She indicates severe pain since that time and originally, she could walk after landing on it, but the next morning, was unable to ambulate. She has a right total knee arthroplasty done in [place] in 2009 that has otherwise done well. She has some arthritis in the left knee, but is livable to this point. She denies any loss of consciousness associated with the injury. PAST MEDICAL HISTORY: Significant for a history of DVT and pulmonary embolism and is therefore on Coumadin therapy. She has tachycardia and hypercholesterolemia. PAST SURGICAL HISTORY: Right knee replacement, multiple hernia repairs, part of her stomach removed. She had an IVC filter for the DVT treatment as well. MEDICATIONS: List is reviewed. ALLERGIES: INCLUDE PENICILLIN, DEXAMETHASONE, MEPERIDINE, MORPHINE AND DIAZEPAM. REVIEW OF SYSTEMS: She denies any loss of consciousness. No focal weakness, numbness, tingling. No neck or back pain, headache, visual changes. Significant for the right knee pain, mainly sudden post fall. PHYSICAL EXAMINATION: EXTREMITIES: She is tender on the right knee primarily over the medial collateral ligament and tender on valgus stress. There is no gross opening. She still has good ligament balance and intact, but symptomatic medial collateral ligament on stress testing. She has good patellofemoral tracking. Trace effusion. No other redness or warmth present. Examination of the contralateral left knee reveals some mild joint line tenderness. Negative Carolyn's. Stable ligaments, normal alignment stability of bilateral hips and ankles with overall intact motor function, distal pulses, sensation, reflexes, skin in both lower extremities throughout. IMAGING: X-rays of the right knee show well placed posterior stabilized total knee arthroplasty with no signs of loosening or surrounding fracture. CT scan shows significant scatter from the implanted metal. There was some thought of a possible irregularity in the metaphyseal cortex of the distal femur. I do not see this or any indication of it on x-ray, again her point of maximum clinical tenderness is really over the medial collateral ligament on examination. IMPRESSION: Knee contusion and medial collateral ligament strain, history of total knee arthroplasty in the remote past. TREATMENT PLAN: I went over with her that I think she fell and twisted and hit her knees, stretching the medial collateral ligament, but I do not see any evidence of fracture on any x-rays. The CT scan, I do not think is diagnostic due to the amount of scattered associated with it and again any clinical findings really are not consistent with fracture based on my evaluation. I did go over with her that we would get her up and around with physical therapy and likely order a hinged knee brace to support the medial collateral ligament, give her better stability for getting up and around. Otherwise, no restrictions on her weightbearing or other activity, which can progress as symptomatically tolerated. All her questions were answered at this time. LULA NOVA MD DR: DAVID/wilian JOB#: [id number] / [id number]
[2018-12-26] MEDS: oxyCODONE/APAP 5/325 1 TAB TABLET PO PRN ×4 (02:04→21:53)
[2018-12-26] MEDS: buPROPion SR 150 MG TABLET.SA PO SCH ×2 (08:08→21:52)
[2018-12-26] MEDS: METOPROLOL TART IMMED RELEASE 25 MG TABLET. PO SCH ×2 (08:09→21:54)
--- NOTE | 2018-12-26 10:42 | HP ---
ADMIT DATE: 12/25/2018 HISTORY OF PRESENT ILLNESS: The patient is a 73-year-old female patient who presented to the Emergency Room of [facility] complaining of 8/10 right knee pain, right foot pain, left knee pain that began yesterday after she missed a step on her deck and fell landing on her knee. She states she was able to ambulate yesterday, but this morning and at the day of admission, she was unable to ambulate. She denied any loss of consciousness. She fell. Denied any head or neck pain. She states that her pain is worse on weightbearing and immobilization has been relieving some of the pain. She had previous history of right knee replacement approximately 8-9 years ago. She was evaluated in the Emergency Room, had had x-rays of her right foot, which showed that she has no fracture. Her right knee showed that there is a fat fluid level within the right knee joint capsule of large size, total right knee joint arthroplasties present. No evidence of loosening. Left knee showed that she had severe left medial compartment narrowing is present with spurring about the left knee is noted. Patellofemoral compartment narrowing is evident. Small left knee joint effusion is present and the impression is that the patient has severe left knee joint degenerative changes and she has right lipohemarthrosis. Fracture line is not evidence. The patient was admitted and Dr. Guillaume was consulted. She was diagnosed with a knee contusion and medial collateral ligament strain, history total knee arthroplasty in the remote past. He basically recommended a hinged knee brace to support the medial collateral ligament and give better stability in getting up and around, but he did not recommend any restriction on weightbearing or other activities which can progress symptomatically tolerated. PAST MEDICAL HISTORY: Significant for hyperlipidemia, hypertension. She has also history of DVT, PE on chronic Coumadin, history of tachycardia. PAST SURGICAL HISTORY: Significant for right total knee arthroplasty, splenectomy, two hernia repairs, partial gastrectomy, IVC filter. ALLERGIES: SHE IS ALLERGIC TO PENICILLIN, DEXAMETHASONE, DIAZEPAM, MEPERIDINE, MORPHINE. MEDICATIONS: She is currently on following medications: She is on metoprolol tartrate 25 mg twice a day, Tylenol with Codeine 1 tablet every 6 hours, Wellbutrin 150 mg twice a day, coconut oil 1000 mg capsule daily. She is on turmeric root extract 1 tablet once a day. FAMILY HISTORY: Noncontributory. SOCIAL HISTORY: She does not smoke, drink alcohol or use any recreational drugs. REVIEW OF SYSTEMS: As per history of present illness. PHYSICAL EXAMINATION: GENERAL: On arrival to the Emergency Room, she looked well and was clearly in no apparent respiratory distress. No pallor, jaundice, cyanosis or thyromegaly. No jugular venous distention. No lower limb edema. VITAL SIGNS: Her heart rate was 58, blood pressure was 136/77, temperature was 98.4, respiratory rate was 16, and oxygen saturation was 96%. HEAD, EYES, EARS, NOSE AND THROAT: Showed normocephalic, atraumatic. NECK: Supple. HEART: Showed normal first and second heart sounds. No gallop or murmur. CHEST: Clear to auscultation. No crepitation, rhonchi. ABDOMEN: Distended, soft, nontender. NEUROLOGIC: She was awake, alert, responding appropriately. All cranial nerves intact. EXTREMITIES: She moves extremities without difficulty except that she has been unable to move or even bend her right knee joint. LABORATORY WORK: On arrival to the Emergency Room showed that she apparently has no lab work done; however, her x-ray of her both knees showed that there is a fat fluid level within the right knee joint capsule of large size. Total right knee joint arthroplasty is present. No evidence of loosening. Her left knee showed severe left medial compartment narrowing is present. Spurring about the left knee is noted. Patellofemoral compartment narrowing is evident. Small left knee joint effusion is present. She did have a CT scan of her right lower extremity, which showed that she has nondisplaced fractures, questioned involving the distal femoral metaphysis posteromedially near the prosthesis. She is also lipohemarthrosis. The patient was admitted and Dr. Guillaume was consulted for evaluation and treatment. NICKY SEWELL MD DR: APPLE/wilian JOB#: [id number] / [id number]
--- NOTE | 2018-12-26 11:00 | NUR ---
wound care patient seen per wound care consult. see wound assessment. patient has an old surgical dehisced incision, the patient stated she had a hernia surgery a while ago and the area opens and closes, patient stated she cleans the area and places gauze and tape over BID. the area was cleaned and redressed with gauze and tape at this time. wound care is signing off at this time, please re-consult wound care if the integumentary assessment changes. notified RAFIA Brown about the POC.
[2018-12-26 11:04] LABS: HEMATOCRIT 43.1 % (36.0-47.0); HEMOGLOBIN 14.4 g/dL (12.0-15.5); RED BLOOD COUNT 4.69 x10^6/uL (3.50-5.40); RED CELL DISTRIBUTION WIDTH 14.9 % (11.5-14.5); WHITE BLOOD COUNT 13.4 x10^3/uL (4.0-11.0)
[2018-12-26 11:22] LABS: ALBUMIN 2.6 g/dL (3.4-5.0); ALBUMIN/GLOBULIN RATIO 0.6 (1.0-1.7); CALCIUM 8.5 mg/dL (8.5-10.1); CREATININE 0.9 mg/dL (0.6-1.0); GFR 61.4; POTASSIUM 3.8 mmol/L (3.5-5.1); TOTAL PROTEIN 6.8 g/dL (6.4-8.2)
--- NOTE | 2018-12-26 13:40 | NUR ---
SS following for discharge planning. SS reviewed pt chart. Pt is from home with spouse and is currently on room air. PT/OT ordered. SS will continue to follow for discharge planning.
--- NOTE | 2018-12-26 17:39 | PN ---
DATE: 12/26/2018 SUBJECTIVE: The patient is sitting in the edge of the bed, working with physical therapy. She has managed to walk with a walker with standby assist. Continues to complain of severe pain in her right knee joint. PHYSICAL EXAMINATION: GENERAL: When I examined her, she looked well and was clearly in no apparent respiratory distress, slightly pale, but no jaundice, cyanosis or thyromegaly. No jugular venous distention. No limb edema. VITAL SIGNS: Her heart rate was 82, blood pressure was 128/75, temperature was 99.3, respiratory rate was 20 and oxygen saturation was 97% on room air. HEAD, EYES, EARS, NOSE AND THROAT: Showed normocephalic, atraumatic. NECK: Supple. HEART: Showed normal first and second heart sounds. No gallop or murmur. CHEST: Clear to auscultation. No crepitation or rhonchi. ABDOMEN: Distended, soft, nontender. NEUROLOGIC: She was awake, alert, responding appropriately. All cranial nerves intact. EXTREMITIES: She obviously has severe pain in her right knee with difficulty walking. She has an order for hinged knee brace; however, she is otherwise weightbearing as tolerated according to Dr. Guillaume. PLAN: My plan is to continue with pain management. She has an inferior vena cava filter. She used to be on Coumadin before. Continue with pain management. We will check all her labs and as far as disposition is concerned, she might require to go to a rehab center or a swing bed before she will be able to go home. NICKY SWEELL MD DR: APPLE/wilian JOB#: [id number] / [id number]
[2018-12-27 03:00] VITALS: BP 118/70
[2018-12-27 07:00] VITALS: BP 121/81
[2018-12-27] MEDS: buPROPion SR 150 MG TABLET.SA PO SCH ×2 (09:01→21:23)
[2018-12-27] MEDS: METOPROLOL TART IMMED RELEASE 25 MG TABLET. PO SCH ×2 (09:01→21:00)
[2018-12-27 11:00] VITALS: BP 99/64
[2018-12-27] MEDS: DOCUSATE SODIUM 100 MG CAPSULE. PO SCH ×2 (11:00→21:00)
[2018-12-27] MEDS: POLYETHYLENE GLYCOL 3350 17 GM PACKET. PO SCH (11:00)
--- NOTE | 2018-12-27 11:38 | PN ---
DATE: 12/27/2018 SUBJECTIVE: The patient is sitting at the edge of the bed comfortably, in no apparent distress. She managed to walk with a walker with standby assist. Her pain is slightly better according to her. PHYSICAL EXAMINATION: GENERAL: When I examined her, she looked pale. No jaundice, cyanosis or thyromegaly. No jugular venous distention. No lower limb edema. VITAL SIGNS: Her heart rate was 88, blood pressure was 121/81, temperature was 98.2, respiratory rate was 18 and oxygen saturation was 95%. HEAD, EYES, EARS, NOSE AND THROAT: Showed normocephalic, atraumatic. NECK: Supple. HEART: Showed normal first and second heart sounds. No gallop or murmur. CHEST: Clear to auscultation. No crepitation or rhonchi. ABDOMEN: Distended, soft, nontender. NEUROLOGICAL: She is awake, alert, responding appropriately. All cranial nerves intact. She walks with a walker. She has a hinged knee brace on the right side. Her intake over the last 24 hours and output are incompletely recorded. LABORATORY DATA: Lab work showed a white cell count of 13,400, hemoglobin 14, hematocrit 43, MCV 92, and platelets 237,000. Her chemistry showed a serum sodium 140, potassium 3.8, chloride 105, bicarbonate 29, anion gap of 6, BUN 13, creatinine 0.9, estimated GFR was 61 mL per minute. ASSESSMENT: Severe pain in the right knee with difficulty walking for which she was seen by Dr. Guillaume, who recommended hinged knee brace and weightbearing as tolerated. Other medical problems include deep venous thrombosis, pulmonary embolism for which she had an inferior vena cava, hypertension and hyperlipidemia. NICKY SEWELL MD DR: APPLE/wilian JOB#: [id number] / [id number]
[2018-12-27] MEDS: oxyCODONE/APAP 5/325 1 TAB TABLET PO PRN ×2 (11:51→21:23)
[2018-12-27 15:00] VITALS: BP 108/65
[2018-12-27 19:00] VITALS: BP 121/68
[2018-12-27 22:57] VITALS: BP 109/52
[2018-12-28 03:00] VITALS: BP 102/55
[2018-12-28 07:00] VITALS: BP 106/69
[2018-12-28 09:00] VITALS: BP 106/69
[2018-12-28] MEDS: DOCUSATE SODIUM 100 MG CAPSULE. PO SCH (09:00)
[2018-12-28] MEDS: buPROPion SR 150 MG TABLET.SA PO SCH (09:00)
[2018-12-28] MEDS: POLYETHYLENE GLYCOL 3350 17 GM PACKET. PO SCH (09:00)
[2018-12-28] MEDS: METOPROLOL TART IMMED RELEASE 25 MG TABLET. PO SCH (09:00)
--- NOTE | 2018-12-28 09:33 | DS ---
DATE OF DISCHARGE: 12/28/2018 The patient is a 73-year-old female patient, who presented to the Emergency Department of [facility] complaining of 8/10 right knee pain, right foot pain, left knee pain, began yesterday after she missed a step in her deck and fell landing on her knee. She stated she was able to ambulate the day of fall, but the day of admission, she was unable to ambulate. She denies any loss of consciousness when she fell, denied any head or neck pain. She was evaluated in the Emergency Room. Had x-ray of both knees, showed that there was a fat fluid level within the right knee joint, capsule of large size, total right knee joint arthroplasty present, no evidence of loosening. She has had a CT scan of her right knee, which basically showed that the patient has nondisplaced fractures, question involving the distal femoral metaphysis posteromedially near the prosthesis, has lipohemarthrosis. However, she was seen in consultation by Dr. Guillaume and stated that the findings really are not consistent with fracture based on his evaluation and she was treated with a hinged knee brace; and basically, her pain is somewhat tolerable now. She is able to walk with a walker with the hinged knee brace and a decision was made to discharge her home to continue on her oxycodone 5/325 one tablet every 4 hours as needed. PHYSICAL EXAMINATION: GENERAL: When I examined her this morning, she was sitting at the edge of the bed comfortably, in no apparent distress. No pallor, jaundice, cyanosis or thyromegaly. No jugular venous distension. No lower limb edema. VITAL SIGNS: Her heart rate was 93, her blood pressure was 106/69, temperature was 98.3, respiratory rate 20 and oxygen saturation was 96%. HEAD, EYES, EARS, NOSE AND THROAT: Showed normocephalic, atraumatic. NECK: Supple. HEART: Showed normal first and second heart sounds. No gallop or murmur. CHEST: Clear to auscultation. No crepitation or rhonchi. ABDOMEN: Slightly distended, soft, nontender. NEUROLOGICAL: She is awake, alert, responding appropriately. All cranial nerves intact. She moves extremities without difficulty. She is able to ambulate with a walker with right knee brace. LABORATORY DATA: Her lab work showed a white cell count 13,400, hemoglobin 14.4, hematocrit 43, MCV 92, and platelet count 237,000. Serum sodium 140, potassium 3.8, chloride 105, bicarbonate 29, anion gap of 6, BUN 13, creatinine 0.9, estimated GFR was 61 mL per minute, her glucose was 83, calcium was 8.5. Her total bilirubin, AST, ALT, alkaline phosphatase were normal. Total protein was 6.8. Albumin 2.6. ASSESSMENT: 1. Severe pain in the right knee with difficulty walking secondary to right knee sprain for which she was seen by Dr. Guillaume, who recommended hinged knee brace and light weightbearing as tolerated. 2. Other medical problems include: A. History of deep vein thrombosis and pulmonary embolism for which she had an inferior vena cava. B. Hypertension. C. Hyperlipidemia. NICKY SEWELL MD DR: APPLE/wilian JOB#: [id number] / [id number]
--- NOTE | 2018-12-28 10:31 | NUR ---
Pt. discharged to home with Rx, verbalized understanding of discharge instructions. Leg immobilzer in place.
[2019-01-08] MEDS ORDERED: HYDR-3164 PO (10:15)
[2019-01-08] MEDS ORDERED: PANT40TA77 PO (10:15)
[2019-01-08] MEDS ORDERED: AMOX1TAB61 PO (10:15)
[2019-01-19] MEDS ORDERED: WARF-78 PO (13:22)
== END 2018-12-28 10:43 | disposition home or self-care (01) | DRG 562 ==
LOC: ER 08:57 → 4 NORTH 14:07
PROVIDERS: ADMIT Internal Medicine; ATTEND Internal Medicine
DX: S83.91XA Sprain of unspecified site of right knee, initial encounter (principal); E43 Unspecified severe protein-calorie malnutrition; S93.601A Unspecified sprain of right foot, initial encounter; E78.00 Pure hypercholesterolemia, unspecified; Z96.651 Presence of right artificial knee joint; W18.39XA Other fall on same level, initial encounter; E78.5 Hyperlipidemia, unspecified; I10 Essential (primary) hypertension; M17.12 Unilateral primary osteoarthritis, left knee; Z79.01 Long term (current) use of anticoagulants; Z86.711 Personal history of pulmonary embolism; Z90.81 Acquired absence of spleen; Z90.3 Acquired absence of stomach [part of]; Z88.5 Allergy status to narcotic agent; Z88.0 Allergy status to penicillin; Z88.8 Allergy status to other drugs, medicaments and biological substances; Y93.89 Activity, other specified; Y92.89 Other specified places as the place of occurrence of the external cause; Y99.8 Other external cause status; Z86.718 Personal history of other venous thrombosis and embolism
CPT/HCPCS: 36415; 73562; 73630; 73700; 80053; 85027; 90471; 90686; 97116; 97530; 97535; 97537; 99285-25; G0378

== ENCOUNTER 2019-01-05 16:20 | Inpatient (IN) | payer MEDICARE, OTHER ==
[~2019-01-05] VITALS: Ht 170.2 cm; Wt 124.5 kg
[~2019-01-05 16:20] MED LIST changes: +BUPR150T11; +TURM500C7 PO
[2019-01-05] MEDS ORDERED: ONDANSETRON PF 4 MG/2 ML VIAL. IV ONE (16:45)
[2019-01-05] MEDS ORDERED: IV NORMAL SALINE 1000ML BAG 1,000 ML IV ONE ×2 (17:00→18:15)
[2019-01-05 17:38] LABS: BASO # 0.1 x10^3/uL (0.0-0.2); BASO % 0 % (0-3); EOS % 0 % (0-3); HEMATOCRIT 41.9 % (36.0-47.0); HEMOGLOBIN 14.3 g/dL (12.0-15.5); LYMPH # 1.4 x10^3/uL (1.0-4.8); LYMPH % 9 % (24-48); MEAN CORPUSCULAR HEMOGLOBIN 31 pg (25-35); MEAN CORPUSCULAR HGB CONC 34 g/dL (31-37); MEAN CORPUSCULAR VOLUME 91 fL (79-100); MONO # 0.8 x10^3/uL (0.0-1.1); MONO % 5 % (0-9); NEUT # 13.3 x10^3/uL (1.8-7.7); NEUT % 85 % (31-73); PLATELET COUNT 408 x10^3/uL (140-400); RED BLOOD COUNT 4.59 x10^6/uL (3.50-5.40); RED CELL DISTRIBUTION WIDTH 14.5 % (11.5-14.5); WHITE BLOOD COUNT 15.6 x10^3/uL (4.0-11.0)
--- NOTE | 2019-01-05 17:43 | PHYS DOC ---
Past Medical History Past Medical History: High Cholesterol, Other Additional Past Medical Histor: DVT, PE on chronic coumadin, tachycardia Past Surgical History: Knee Replacement, Other Additional Past Surgical Histo: spleenectomy, 2 hernia repairs and part of stomach removed, IVC filter, rabia Alcohol Use: None Drug Use: None Adult General Chief Complaint Chief Complaint: NAUSEA/VOMITING/DIARRHA HPI HPI Patient is a 73 year old female with history of chronic tachycardia and PE on Coumadin who presents EMS with complaining of nausea and diarrhea. Patient states she didn't feel good for the last 3 days and had several episodes of nonbloody diarrhea yesterday and 2 episodes of diarrhea today and complaining of constant nausea without vomiting. Patient complaining of chills and episodes of subjective fever for the last 3 days. Patient complaining of urinary frequency and bilateral lower extremity pain after a fall a few days ago. Patient denies abdominal pain, sick contact, chest pain, shortness of breath. Patient had temperature of 100.7 rectally at arrival to ER. Review of Systems Review of Systems Constitutional: Reports fever and chills Eyes: Denies change in visual acuity, redness, or eye pain [] HENT: Denies nasal congestion or sore throat [] Respiratory: Denies cough or shortness of breath [] Cardiovascular: No additional information not addressed in HPI [] GI: Denies abdominal pain, vomiting, bloody stools, reports nausea and diarrhea [] : Denies dysuria or hematuria [] Musculoskeletal: Denies back pain or joint pain [] Integument: Denies rash or skin lesions [] Neurologic: Denies headache, focal weakness or sensory changes [] Endocrine: Denies polyuria or polydipsia [] All other systems were reviewed and found to be within normal limits, except as documented in this note. Current Medications Current Medications Current Medications Medications (Trade) Dose Ordered Sig/Marcia Start Time Stop Time Status Last Admin Dose Admin Ondansetron HCl (Zofran) 4 mg 1X ONCE 01/05/19 16:45 01/05/19 16:46 DC 01/05/19 16:55 4 MG Sodium Chloride 1,000 ml @ 1,000 mls/hr 1X ONCE 01/05/19 17:00 01/05/19 17:59 DC 01/05/19 16:54 1,000 MLS/HR Allergies Allergies Allergies Coded Allergies Type Severity Reaction Last Updated Verified Penicillins Allergy Intermediate Hives 12/31/17 Yes dexamethasone Allergy Intermediate 12/31/17 Yes diazepam Allergy Intermediate 12/31/17 Yes meperidine Allergy Intermediate Hives 12/31/17 Yes morphine Allergy Intermediate Nausea and Vomiting 12/31/17 Yes Physical Exam Physical Exam Constitutional: Well developed, well nourished, mild distress, non-toxic appearance. [] HENT: Normocephalic, atraumatic, dry oral mucosa. Eyes: PERRLA, EOMI, conjunctiva normal, no discharge. [] Neck: Normal range of motion, no tenderness, supple, no stridor. [] Cardiovascular: Tachycardia, no murmur [] Lungs & Thorax: Bilateral breath sounds clear to auscultation [] Abdomen: Bowel sounds normal, soft, no tenderness, no masses, no pulsatile masses. [] Skin: Warm, dry, no erythema, no rash. [] Back: No tenderness, no CVA tenderness. [] Extremities: No tenderness, no cyanosis, no clubbing, ROM intact, bilateral lower extremity 1+ edema. [] Neurologic: Alert and oriented X 3, no focal deficits noted. [] Psychologic: Affect normal, judgement normal, mood normal. [] Current Patient Data Vital Signs Vital Signs Date Time Temp Pulse Resp B/P (MAP) Pulse Ox O2 Delivery O2 Flow Rate FiO2 01/05/19 16:25 100.7 126 20 144/87 (106) 96 Nasal Cannula 3.0 100.7 EKG EKG EKG interpreted by me. EKG at 1624 showed sinus tachycardia at rate of 127, no acute ST-T wave abnormalities. Radiology/Procedures Radiology/Procedures [] Course & Med Decision Making Course & Med Decision Making Pertinent Labs reviewed. (See chart for details) Evaluation of patient ER showed 72-year-old female patient with history of chronic tachycardia presented to the complaining of nausea and diarrhea and generalized weakness. Patient had temperature of 100.7 rectally and heart rate of 120s acuity tested of 2.7. Sepsis protocol was started with the starting IV fluid and antibiotic. Patient felt better with Zofran.Patient requiring admission for further evaluation and treatment. Discussed with Dr. Meléndez who is in agreement with admission. Discussed findings and plan with patient and family, who acknowledge understanding and agreement. Dragon Disclaimer Dragon Disclaimer This electronic medical record was generated, in whole or in part, using a voice recognition dictation system. Departure Departure Impression: Primary Impression: Acute gastroenteritis Additional Impressions: Sepsis Hyperkalemia Renal insufficiency Elevated alkaline phosphatase level Hypoalbuminemia Morbid obesity Tachycardia Fever Disposition: 09 ADMITTED INPATIENT (at 1652) Admitting Physician: Cassandra Meléndez (accepted admission at 1650) Condition: IMPROVED Referrals: NICKY BREAUX (PCP) Date and Time of Reassessment Date: Jan 05, 2019 Time: 18:00 Fluid Challenge Is the fluid challenge complet: Yes IBW Target Volume Used: Yes BMI > 30: Yes Vital Signs Vital Signs: Vital Signs Date Time Temp Pulse Resp B/P (MAP) Pulse Ox O2 Delivery O2 Flow Rate FiO2 01/05/19 16:25 100.7 126 20 144/87 (106) 96 Nasal Cannula 3.0 100.7 Temperature Source: Rectal Respirations Respiratory Pattern: Normal Cardiovascular Pulse Rhythm: Regular Heart: Nml S1, S2, no murmurs Lung Sounds Breath Sounds: Clear Capillary Refil Capillary Refill: Rt Hand < 3 seconds Peripheral Pulse Pulse Location: Radial Pulse Strength: Normal (2+) Pulse Assessment Method: NIBP Critical Care Time Critical care time was 60 minutes exclusive of procedures. Problem Qualifiers Additional Impressions: Sepsis Sepsis type: sepsis due to unspecified organism Sepsis acute organ d ysfunction status: unspecified Qualified Codes: A41.9 - Sepsis, unspecified organism Fever Fever type: unspecified Qualified Codes: R50.9 - Fever, unspecified JOYCELYN WEISS MD Jan 05, 2019 17:43
[2019-01-05 17:49] LABS: PROTHROMBIN TIME PATIENT 14.8 SEC (11.7-14.0)
[2019-01-05 17:51] LABS: ANION GAP 16 (6-14); BLOOD UREA NITROGEN 38 mg/dL (7-20); BUN/CREATININE RATIO 20 (6-20); CALCIUM 9.2 mg/dL (8.5-10.1); CARBON DIOXIDE 21 mmol/L (21-32); CHLORIDE 100 mmol/L (98-107); CREATININE 1.9 mg/dL (0.6-1.0); GFR 25.9; GLUCOSE 141 mg/dL (70-99); POTASSIUM 5.4 mmol/L (3.5-5.1); SODIUM 137 mmol/L (136-145)
[2019-01-05 17:57] LABS: ALBUMIN 3.2 g/dL (3.4-5.0); ALBUMIN/GLOBULIN RATIO 0.8 (1.0-1.7); ALK PHOS 143 U/L (46-116); ALT (SGPT) 13 U/L (14-59); AST (SGOT) 15 U/L (15-37); CREATINE KINASE 23 U/L (26-192); LIPASE 75 U/L (73-393); MAGNESIUM 2.2 mg/dL (1.8-2.4); TOTAL BILIRUBIN 0.8 mg/dL (0.2-1.0); TOTAL PROTEIN 7.4 g/dL (6.4-8.2)
[2019-01-05] MEDS ORDERED: ALBUTEROL SULFATE 2.5 MG/3 ML NEBU. CONT NEB ONE (18:00)
[2019-01-05] MEDS ORDERED: VANCOMYCIN 1GM IVPB FOR OMNI 250 ML IV ONE (18:15)
[2019-01-05] MEDS ORDERED: cefTRIAXone IV Push 1 GM VIAL. IVP ONE (18:15)
[2019-01-05] MEDS ORDERED: ONDANSETRON PF 4 MG/2 ML VIAL. IV PRN (18:15)
[2019-01-05 18:35] LABS: % BANDS 5 % (0-9); % LYMPHS 8 % (24-48); % MONOS 2 % (0-10); % SEGS 85 % (35-66); PLT ESTIMATE INCREASED (ADEQUATE)
[2019-01-05 19:20] VITALS: BP 121/70
[2019-01-05] MEDS ORDERED: VANCOMYCIN 2 GM in IV NORMAL SALINE 500ML BAG 500 ML IV ONE (21:00)
[2019-01-05] MEDS: fentaNYL PF VIAL 100 MCG/2 ML VIAL IVP PRN (21:08)
[2019-01-05] MEDS: IV NORMAL SALINE 1000ML BAG 1,000 ML IV SCH (21:09)
[2019-01-05] MEDS: VANCOMYCIN PER PHARMACY MC PRN (21:57)
--- NOTE | 2019-01-05 22:00 | NUR ---
Pharmacy Vancomycin Dosing Note S:Consulted to monitor and dose vancomycin started 01/05/19. O:PRINCE GARZON is a 73 year old F with Sepsis . Height: 5 feet, 7 inches Weight: 113.663249 kg [place] Body Weight: 61.60 Adjusted Body Weight: 82.32 Dosing Weight: Actual Other Antibiotics: LABS: Last BUN: 38 Last Creatinine: 1.9 Creatinine Clearance: 34 mL/min Last WBC: 15.6 Last Procalcitonin: Tmax (past 24 hours): Microbiology: I/O: Drug Levels: Last level: on at Last dose given at Vancomycin Dosing: Loading Dose: 2000 mg x1 01/05/192099 Dosing Weight: Actual Target Trough: 15-20 A: Based on: Actual Wt and CrCl P: 1. 01/06/192099 Vancomycin 1750 mg IV q24h 2. Follow up Trough level on 01/07/19 at 2030 3. Pharmacy will continue to monitor, follow and adjust therapy as needed. TORIN SALEH RPH, 01/05/192199 Signed: 01/05/19 at 220 by TORIN SALEH RPH PHA
[2019-01-05 23:16] VITALS: BP 110/75
[2019-01-06] MEDS: fentaNYL PF VIAL 100 MCG/2 ML VIAL IVP PRN ×5 (01:04→21:50)
[2019-01-06 02:17] LABS: BILIRUBIN,URINE SMALL (NEG); CLARITY,URINE CLOUDY; COLOR,URINE AMBER; NITRITE,URINE NEGATIVE (NEG); PROTEIN,URINE NEGATIVE (NEG-TRACE)
[2019-01-06 02:31] LABS: BACTERIA,URINE FEW /HPF (0-FEW); HYALINE CASTS, URINE MANY /HPF; RBC,URINE 0 /HPF (0-2); SQUAMOUS EPITHELIAL CELL,UR MOD /LPF; WBC,URINE 20-40 /HPF (0-4)
[2019-01-06 03:25] VITALS: BP 120/75
[2019-01-06] MEDS: IV NORMAL SALINE 1000ML BAG 1,000 ML IV SCH ×3 (05:23→21:53)
[2019-01-06 05:45] LABS: BASO # 0.1 x10^3/uL (0.0-0.2); BASO % 1 % (0-3); EOS # 0.1 x10^3/uL (0.0-0.7); EOS % 1 % (0-3); HEMATOCRIT 40.3 % (36.0-47.0); HEMOGLOBIN 13.2 g/dL (12.0-15.5); LYMPH # 2.3 x10^3/uL (1.0-4.8); LYMPH % 17 % (24-48); MEAN CORPUSCULAR HEMOGLOBIN 30 pg (25-35); MEAN CORPUSCULAR HGB CONC 33 g/dL (31-37); MEAN CORPUSCULAR VOLUME 92 fL (79-100); MONO # 1.2 x10^3/uL (0.0-1.1); MONO % 9 % (0-9); NEUT % 73 % (31-73); PLATELET COUNT 360 x10^3/uL (140-400); RED CELL DISTRIBUTION WIDTH 14.7 % (11.5-14.5); WHITE BLOOD COUNT 13.6 x10^3/uL (4.0-11.0)
[2019-01-06 06:09] LABS: CALCIUM 8.6 mg/dL (8.5-10.1); CREATININE 1.5 mg/dL (0.6-1.0); POTASSIUM 4.1 mmol/L (3.5-5.1)
--- NOTE | 2019-01-06 06:28 | EKG ---
[facility] [address] [place] [address] Test Date: 2019-01-05 Test Time: 16:24:50 Pat Name: PRINCE GARZON Department: Room: [facility] Gender: F Bill Of Lading Clerk: : 1945 Requested By: JOYCELYN WEISS Order Number: [id number] Reading MD: Donnell Johnson MD Measurements Intervals [place] Rate: 127 P: -9 MO: 136 QRS: 33 QRSD: 78 T: 26 QT: 282 QTc: 415 Interpretive Statements SINUS TACHYCARDIA NON-SPECIFIC ST/T CHANGES Electronically Signed On 01-14-2019 10:00:55 CDT by Donnell Johnson MD
[2019-01-06 07:35] VITALS: BP 130/82
--- NOTE | 2019-01-06 08:01 | RAD ---
PORTABLE CHEST 1V 01/05/2019 8:31 PM INDICATION: Fever COMPARISON: 01/02/2018 TECHNIQUE: Portable frontal view of the chest is provided. FINDINGS: The cardiomediastinal silhouette is similar in appearance. Interval removal of nasogastric tube. There is dextro convex scoliosis of the thoracic spine. Right shoulder arthroplasty partially profiled. Lungs are clear. There are no significant pleural effusions. There is no pulmonary vascular congestion. No pneumothorax. IMPRESSION: There is no acute cardiopulmonary process. Electronically signed by: Lauren Michelle MD (01/06/2019 7:58 AM) [facility]
--- NOTE | 2019-01-06 08:09 | NUR ---
Chart review done. ER report indicates pt had a fall a couple days ago w/ resulting LE pain. May benefit from PT/OT Eval and Treat. Addendum: 01/06/19 at 0810 by ROSE RENE OT Amended: Links added.
--- NOTE | 2019-01-06 10:07 | PDOC ---
Provider Note Provider Note Pt seen .H&P dictated.#[id number]. EVERTON LAUREN MD Jan 06, 2019 10:07
[2019-01-06 10:43] LABS: INFLUENZA A PATIENT NEGATIVE (NEGATIVE); INFLUENZA B PATIENT NEGATIVE (NEGATIVE)
[2019-01-06 11:19] VITALS: BP 133/73
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
--- NOTE | 2019-01-06 12:42 | HP ---
ADMIT DATE: 01/05/2019 MEDICAL HISTORY AND PHYSICAL ATTENDING PHYSICIAN: Cassandra Lauren MD PRIMARY CARE PHYSICIAN: Dr. Joanne Islas. REASON FOR ADMISSION TO THE HOSPITAL: Nausea, vomiting, diarrhea, fever and possible viral gastroenteritis, UTI. HISTORY OF PRESENT ILLNESS: The patient is a 73-year-old female, patient of Dr. Islas. She has a history of DVT, PE, on Coumadin; hypertension; and hyperlipidemia. She was not feeling well. She had nausea, vomiting, dry heaves and diarrhea for the last 2-3 days, got progressively worse, came to the Emergency Room. She had a fever of 100.7. White count was elevated. The patient was admitted. She was also found to have urinary tract infection as well as viral gastritis, was admitted to the hospital. PAST MEDICAL HISTORY: As mentioned, she has history of DVT, PE, on Coumadin; hypertension; hyperlipidemia. PAST SURGICAL HISTORY: Had a history of splenectomy, hernia repair, IVC filter, knee replacement, shoulder replacement. ALLERGIES: PENICILLIN, DEXAMETHASONE, DIAZEPAM, DEMEROL AND MORPHINE. MEDICATIONS AT HOME: The patient is on bupropion 150 mg twice a day, metoprolol 25 mg twice a day, Tylenol No. 3, coconut oil daily, turmeric 1 daily. PERSONAL HISTORY: Ex-smoker. Denies alcohol or street drugs. FAMILY HISTORY: Positive for diabetes, heart disease. REVIEW OF SYMPTOMS: CARDIAC: No chest pain. GASTROINTESTINAL: Had nausea, vomiting, diarrhea. Rest of the 14-system was reviewed and negative. PHYSICAL EXAMINATION: VITAL SIGNS: At the time of admission shows a temperature of 100.7, pulse 126, respirations 20, blood pressure 144/87, 96% on 3 liters. HEENT: Head is atraumatic. Pupils equal. Oral cavity: No congestion. NECK: Supple. Thyroid not enlarged. JVD not elevated. CHEST: Symmetrical. CARDIOVASCULAR: S1, S2. LUNGS: Clear to auscultation. ABDOMEN: Soft, bowel sounds present, no mass palpable. Scar of previous abdominal surgeries. EXTERNAL GENITALIA: No Hanley. RECTAL: Deferred. EXTREMITIES: The patient has a scar on the right knee as well as right shoulder from previous surgeries, no redness, normal range. LABORATORY DATA: White count was 15, hemoglobin 14, platelets 408. INR 1.2. Electrolytes showed sodium 137, potassium 5.4, chloride 100, bicarbonate 21, anion gap 16, BUN 38, creatinine 1.9, glucose 141. LFTs were normal. Lactic acid was 2.3, came down to 1.5. Creatinine is coming down to 1.5. Influenza A and B was negative. Urine shows 20-40 wbc, moderate leukocytes. Chest x-ray: No acute abnormality. EKG negative. FINAL IMPRESSION:. 1. Acute Urinary tract infection 2. Viral gastroenteritis.Viral illness 3. Hypertension. 4. Hyperlipidemia. 5. History of deep venous thrombosis, pulmonary embolism in the past, has IVC filter. 6. History of knee and shoulder surgeries. 7.Ac kidney failure due to vasomotor causes. PLAN: At this time, admit to hospital, IV fluids. Creatinine is coming down. Diarrhea is better. GI consult. Also, monitor WBC. Lactic acid is coming down with fluids, was given Rocephin IV and await urine cultures. CASSANDRA LAUREN MD DR: TAMY/wilian JOB#: [id number] / [id number] JOANNE Edwards
[2019-01-06] MEDS: PANTOPRAZOLE IV PUSH 40 MG VIAL. IVP SCH (14:49)
[2019-01-06] MEDS: buPROPion SR 150 MG TABLET.SA PO SCH ×2 (14:50→21:49)
[2019-01-06] MEDS: ENOXAPARIN 40 MG/0.4 ML SYRINGE. SQ SCH (14:50)
[2019-01-06] MEDS: METOPROLOL TART IMMED RELEASE 25 MG TABLET. PO SCH ×2 (14:51→21:50)
[2019-01-06 15:20] VITALS: BP 109/68
[2019-01-06] MEDS: VANCOMYCIN PER PHARMACY MC PRN (15:52)
[2019-01-06] MEDS: cefTRIAXone IV Push 1 GM VIAL. IVP SCH (17:58)
[2019-01-06 19:47] VITALS: BP 116/62
[2019-01-06] MEDS: VANCOMYCIN 1.75 GM in IV NORMAL SALINE 500ML BAG 500 ML IV SCH (21:49)
[2019-01-06 23:48] VITALS: BP 110/86
[2019-01-07] VITALS (11 sets, daily range): BP systolic 92–150; BP diastolic 55–78
[2019-01-07] MEDS ORDERED: diphenhydrAMINE 50 MG/ML VIAL IVP ONE (01:00)
[2019-01-07] MEDS ORDERED: diphenhydrAMINE 50 MG/ML VIAL IVP PRN (01:00)
[2019-01-07] MEDS: fentaNYL PF VIAL 100 MCG/2 ML VIAL IVP PRN ×4 (01:36→18:01)
[2019-01-07 04:00] LABS: BASO # 0.1 x10^3/uL (0.0-0.2); BASO % 1 % (0-3); EOS # 0.1 x10^3/uL (0.0-0.7); EOS % 1 % (0-3); HEMATOCRIT 38.4 % (36.0-47.0); HEMOGLOBIN 12.8 g/dL (12.0-15.5); LYMPH # 2.4 x10^3/uL (1.0-4.8); LYMPH % 21 % (24-48); MEAN CORPUSCULAR HEMOGLOBIN 31 pg (25-35); MEAN CORPUSCULAR HGB CONC 33 g/dL (31-37); MEAN CORPUSCULAR VOLUME 92 fL (79-100); MONO # 0.9 x10^3/uL (0.0-1.1); MONO % 8 % (0-9); NEUT % 69 % (31-73); PLATELET COUNT 397 x10^3/uL (140-400); RED BLOOD COUNT 4.17 x10^6/uL (3.50-5.40); RED CELL DISTRIBUTION WIDTH 14.8 % (11.5-14.5); WHITE BLOOD COUNT 11.6 x10^3/uL (4.0-11.0)
[2019-01-07 04:15] LABS: CALCIUM 8.4 mg/dL (8.5-10.1); CREATININE 1.1 mg/dL (0.6-1.0); GFR 48.7; POTASSIUM 4.1 mmol/L (3.5-5.1)
--- NOTE | 2019-01-07 08:38 | NUR ---
SW following pt for dc planning. Chart reviewed. Pt lives at home with family/spouse. PT/OT ordered and on hold yesterday. SW will await for PT/OT assessment to evaluate dc needs.
--- NOTE | 2019-01-07 09:16 | PDOC ---
PROGRESS NOTES Subjective Subjective pain rt knee Objective Objective Vital Signs Date Time Temp Pulse Resp B/P (MAP) Pulse Ox O2 Delivery O2 Flow Rate FiO2 01/07/19 07:47 98.3 76 20 129/55 (79) 95 Room Air 98.3 01/06/19 20:11 3.0 Intake and Output 01/07/19 07:00 Intake Total 200 ml Balance 200 ml Intake Oral 200 ml # Voids 2 Physical Exam Abdomen: Soft Extremities: No clubbing General: Alert HEENT: Atraumatic Lungs: Clear to auscultation MUSCULOSKELETAL: Osteoarthritic changes both hands, Other (pain and swelling rt knee) Neuro: Normal speech Skin: No breakdown Diagnosis Problem List Problems Medical Problems: (1) Acute gastroenteritis Status: Acute (2) Elevated alkaline phosphatase level Status: Acute (3) Fever Status: Acute (4) Hyperkalemia Status: Acute (5) Hypoalbuminemia Status: Acute (6) Morbid obesity Status: Acute (7) Renal insufficiency Status: Acute (8) Sepsis Status: Acute (9) Tachycardia Status: Acute Assessment Assessment Problems Medical Problems: (1) Acute gastroenteritis Status: Acute (2) Elevated alkaline phosphatase level Status: Acute (3) Fever Status: Acute (4) Hyperkalemia Status: Acute (5) Hypoalbuminemia Status: Acute (6) Morbid obesity Status: Acute (7) Renal insufficiency Status: Acute (8) Sepsis Status: Acute (9) Tachycardia Status: Acute Plan Plan of Care FINAL IMPRESSION: fever resolving 1. Viral gastroenteritis. 2. Urinary tract infection.c/s pending 3. Hypertension. 4. Hyperlipidemia. 5. History of deep venous thrombosis, pulmonary embolism in the past, has IVC filter. 6. History of knee and shoulder surgeries. 7.Rt knee pain and swelling, had TKA PLAN: clinically improving with iv antibiotics wbc 11 down cr 1.1 down. egd today flue test -ve ortho consult. urine c/s pending. At this time, admit to hospital, IV fluids. Creatinine is coming down. Diarrhea is better. GI consult. Also, monitor WBC. Lactic acid is coming down with fluids, was given Rocephin IV and await urine cultures.Problems Medical Problems: Comment Review of Relevant I have reviewed the following items keny (where applicable) has been applied. Labs Laboratory Tests Test 01/06/19 10:10 01/07/19 03:30 Influenza Type A Antigen Negative (NEGATIVE) Influenza Type B Antigen Negative (NEGATIVE) White Blood Count 11.6 x10^3/uL (4.0-11.0) Red Blood Count 4.17 x10^6/uL (3.50-5.40) Hemoglobin 12.8 g/dL (12.0-15.5) Hematocrit 38.4 % (36.0-47.0) Mean Corpuscular Volume 92 fL (79-100) Mean Corpuscular Hemoglobin 31 pg (25-35) Mean Corpuscular Hemoglobin Concent 33 g/dL (31-37) Red Cell Distribution Width 14.8 % (11.5-14.5) Platelet Count 397 x10^3/uL (140-400) Neutrophils (%) (Auto) 69 % (31-73) Lymphocytes (%) (Auto) 21 % (24-48) Monocytes (%) (Auto) 8 % (0-9) Eosinophils (%) (Auto) 1 % (0-3) Basophils (%) (Auto) 1 % (0-3) Neutrophils # (Auto) 8.0 x10^3/uL (1.8-7.7) Lymphocytes # (Auto) 2.4 x10^3/uL (1.0-4.8) Monocytes # (Auto) 0.9 x10^3/uL (0.0-1.1) Eosinophils # (Auto) 0.1 x10^3/uL (0.0-0.7) Basophils # (Auto) 0.1 x10^3/uL (0.0-0.2) Sodium Level 140 mmol/L (136-145) Potassium Level 4.1 mmol/L (3.5-5.1) Chloride Level 107 mmol/L (98-107) Carbon Dioxide Level 24 mmol/L (21-32) Anion Gap 9 (6-14) Blood Urea Nitrogen 26 mg/dL (7-20) Creatinine 1.1 mg/dL (0.6-1.0) Estimated GFR (Cockcroft-Gault) 48.7 Glucose Level 99 mg/dL (70-99) Calcium Level 8.4 mg/dL (8.5-10.1) Microbiology 01/05/19 Blood Culture - Preliminary, Resulted NO GROWTH AFTER 1 DAY Medications Current Medications Bupropion HCl (Wellbutrin Sr) 150 mg BID PO Last administered on 01/06/19 21:49; Start 01/06/19 at 12:00 Ceftriaxone Sodium (Rocephin) 1 gm Q24H IVP Last administered on 01/06/19 17:58; Start 01/06/19 at 18:00 Diphenhydramine HCl (Benadryl) 25 mg 1X ONCE IVP Last administered on 01/07/19 01:36; Start 01/07/19 at 01:00; Stop 01/07/19 at 01:01; Status DC Diphenhydramine HCl (Benadryl) 25 mg PRN Q6HRS PRN IVP ITCHING; Start 01/07/19 at 01:00 Enoxaparin Sodium (Lovenox 40mg Syringe) 40 mg Q24H SQ Last administered on 01/06/19 14:50; Start 01/06/19 at 11:00 Metoprolol Tartrate (Lopressor) 25 mg BID PO Last administered on 01/06/19 21:50; Start 01/06/19 at 12:00 Pantoprazole Sodium (PROTONIX VIAL for IV PUSH) 40 mg DAILYAC IVP Last administered on 01/06/19 14:49; Start 01/06/19 at 12:00 Sodium Chloride 1,000 ml @ 75 mls/hr [id number] IV Last administered on 01/06/19at 21:53; Start 01/06/19 at 10:15 Vancomycin HCl (Vancomycin Trough Level) 1 each 1X ONCE MC ; Start 01/07/19 at 20:30; Stop 01/07/19 at 20:31 Vancomycin HCl 1.75 gm/Sodium Chloride 500 ml @ 250 mls/hr Q24H IV Last administered on 01/06/19 21:49; Start 01/06/19 at 21:00 Vitals/I & O Vital Sign - Last 24 Hours 01/06/19 01/06/19 01/06/19 01/06/19 09:20 11:19 14:50 14:51 Temp 98.0 98.0 Pulse 101 90 Resp 17 20 17 B/P (MAP) 133/73 (93) 109/68 Pulse Ox 95 O2 Delivery Room Air Room Air Room Air 01/06/19 01/06/19 01/06/19 01/06/19 15:20 15:20 19:47 20:11 Temp 98.7 98.7 98.7 98.7 Pulse 90 46 Resp 20 17 20 B/P (MAP) 109/68 (82) 116/62 (80) Pulse Ox 97 95 O2 Delivery Room Air Room Air Room Air Nasal Cannula O2 Flow Rate 3.0 01/06/19 01/06/19 01/06/19 01/06/19 21:50 21:50 22:30 23:48 Temp 98.3 98.3 Pulse 101 84 Resp 20 B/P (MAP) 116/62 110/86 (94) Pulse Ox 97 O2 Delivery Room Air Room Air Room Air 01/07/19 01/07/19 01/07/19 01/07/19 01:36 02:10 03:24 06:37 Temp 97.8 97.8 Pulse 72 Resp 18 B/P (MAP) 118/59 (78) Pulse Ox 96 O2 Delivery Room Air Room Air Room Air Room Air 01/07/19 07:47 Temp 98.3 98.3 Pulse 76 Resp 20 B/P (MAP) 129/55 (79) Pulse Ox 95 O2 Delivery Room Air Intake and Output 01/06/19 01/06/19 01/07/19 15:00 23:00 07:00 Intake Total 100 ml 100 ml Balance 100 ml 100 ml EVERTON LAUREN MD Jan 07, 2019 09:16
[2019-01-07] MEDS: PANTOPRAZOLE IV PUSH 40 MG VIAL. IVP SCH (10:13)
[2019-01-07] MEDS ORDERED: PROPOFOL 20 ML IV ONE (11:07)
--- NOTE | 2019-01-07 11:10 | PDOC4 ---
PROCEDURE Procedure EGD/biopsies/dilate Indication: N, V, Dysphagia Meds: per anesthesia Findings: E--? Gill's 33-34cm. GEJ at 34. Irregular SQ junction c/w some active reflux. Biopsies to r/o Gill's. G--Apparent scar anterior wall from prior perf repair. No appreciable HH, though could be large. D--Normal to second portion. Aniya. well. IMP: GERD Gill's? S/p gastric repair. REC: PPI Await biopsies. SAMEERA PAK MD Jan 07, 2019 11:10
[2019-01-07] MEDS: buPROPion SR 150 MG TABLET.SA PO SCH ×2 (11:53→20:24)
[2019-01-07] MEDS: ENOXAPARIN 40 MG/0.4 ML SYRINGE. SQ SCH (11:53)
[2019-01-07] MEDS: METOPROLOL TART IMMED RELEASE 25 MG TABLET. PO SCH ×2 (11:53→20:24)
[2019-01-07] MEDS: IV NORMAL SALINE 1000ML BAG 1,000 ML IV SCH (11:54)
--- NOTE | 2019-01-07 13:11 | NUR ---
SW following pt. PT/OT recommends SNU. Attempted to meet with pt to discuss options and pt requested SWer to return later as she was on the phone. SW will attempt to meet with pt later. Discussed with RN.
--- NOTE | 2019-01-07 14:46 | PDOC2 ---
CONSULT Date of Consult Date of Consult DATE: 01/07/19 TIME: 14:42 Past Medical History Cardiovascular: HTN, Hyperlipidemia Pulmonary: Pulmonary embolus GI: GERD Heme/Onc: Other Hepatobiliary: Other Musculoskeletal: Osteoarthritis Renal/: UTI Endocrine: Hyperthyroidism Past Surgical History Past Surgical History: Cholecystectomy, Hernia Repair, Total knee replacement, Hysterectomy, Other Family History Family History: Family History Unknown Social History No ALCOHOL: none Drugs: None Lives: with Family Current Problem List Problem List Problems Medical Problems: (1) Acute gastroenteritis Status: Acute (2) Elevated alkaline phosphatase level Status: Acute (3) Fever Status: Acute (4) Hyperkalemia Status: Acute (5) Hypoalbuminemia Status: Acute (6) Morbid obesity Status: Acute (7) Renal insufficiency Status: Acute (8) Sepsis Status: Acute (9) Tachycardia Status: Acute Current Medications Current Medications Current Medications Ondansetron HCl (Zofran) 4 mg 1X ONCE IV Last administered on 01/05/19at 16:55; Start 01/05/19 at 16:45; Stop 01/05/19 at 16:46; Status DC Sodium Chloride 1,000 ml @ 1,000 mls/hr 1X ONCE IV Last administered on 01/05/19at 16:54; Start 01/05/19 at 17:00; Stop 01/05/19 at 17:59; Status DC Albuterol Sulfate (Ventolin Neb Soln) 10 mg 1X ONCE CONT NEB ; Start 01/05/19 at 18:00; Stop 01/05/19 at 18:01; Status DC Ceftriaxone Sodium (Rocephin) 1 gm 1X ONCE IVP Last administered on 01/05/19at 18:28; Start 01/05/19 at 18:15; Stop 01/05/19 at 18:18; Status DC Vancomycin HCl 250 ml @ 250 mls/hr 1X ONCE IV ; Start 01/05/19 at 18:15; Stop 01/05/19 at 19:14; Status Cancel Sodium Chloride 1,000 ml @ 1,000 mls/hr 1X ONCE IV Last administered on 01/05/19at 18:28; Start 01/05/19 at 18:15; Stop 01/05/19 at 19:14; Status DC Ondansetron HCl (Zofran) 4 mg PRN Q8HRS PRN IV NAUSEA/VOMITING; Start 01/05/19 at 18:15; Stop 01/06/19 at 18:14; Status DC Sodium Chloride 1,000 ml @ 150 mls/hr Q6H40M IV Last administered on 01/06/19at 05:23; Start 01/05/19 at 18:10; Stop 01/06/19 at 10:07; Status DC Fentanyl Citrate (Fentanyl 2ml Vial) 12.5 mcg PRN Q3HRS PRN IVP PAIN Last administered on 01/07/19at 10:13; Start 01/05/19 at 20:45 Vancomycin HCl (Vanco Per Pharmacy) 1 each PRN DAILY PRN MC SEE COMMENTS Last administered on 01/06/19 15:52; Start 01/05/19 at 21:00 Ceftriaxone Sodium (Rocephin) 1 gm Q24H IVP Last administered on 01/06/19 17:58; Start 01/06/19 at 18:00 Vancomycin HCl 2 gm/Sodium Chloride 500 ml @ 250 mls/hr 1X ONCE IV Last administered on 01/05/19at 21:08; Start 01/05/19 at 21:00; Stop 01/05/19 at 22:59; Status DC Vancomycin HCl 1.75 gm/Sodium Chloride 500 ml @ 250 mls/hr Q24H IV Last administered on 01/06/19 21:49; Start 01/06/19 at 21:00 Vancomycin HCl (Vancomycin Trough Level) 1 each 1X ONCE MC ; Start 01/07/19 at 20:30; Stop 01/07/19 at 20:31 Enoxaparin Sodium (Lovenox 40mg Syringe) 40 mg Q24H SQ Last administered on 01/07/19 11:53; Start 01/06/19 at 11:00 Sodium Chloride 1,000 ml @ 75 mls/hr [id number] IV Last administered on 01/07/19 11:54; Start 01/06/19 at 10:15 Metoprolol Tartrate (Lopressor) 25 mg BID PO Last administered on 01/07/19 11:53; Start 01/06/19 at 12:00 Bupropion HCl (Wellbutrin Sr) 150 mg BID PO Last administered on 01/07/19 11:53; Start 01/06/19 at 12:00 Pantoprazole Sodium (PROTONIX VIAL for IV PUSH) 40 mg DAILYAC IVP Last administered on 01/07/19at 10:13; Start 01/06/19 at 12:00; Stop 01/07/19 at 11:12; Status DC Diphenhydramine HCl (Benadryl) 25 mg PRN Q6HRS PRN IVP ITCHING; Start 01/07/19 at 01:00 Diphenhydramine HCl (Benadryl) 25 mg 1X ONCE IVP Last administered on 01/07/19at 01:36; Start 01/07/19 at 01:00; Stop 01/07/19 at 01:01; Status DC Propofol 20 ml @ As Directed STK-MED ONCE IV ; Start 01/07/19 at 11:07; Stop 01/07/19 at 11:08; Status DC Pantoprazole Sodium (Protonix) 40 mg DAILYAC PO ; Start 01/08/19 at 07:30 Active Scripts Active Reported Turmeric 450-50 mg Capsule (Turmeric/Turmeric Root Extract) 1 Each Capsule 1 Each PO DAILY Bupropion Hcl Sr (Bupropion Hcl) 150 Mg Tablet.er 150 BID Coconut Oil 1,000 Mg Capsule 1,000 Mg PO DAILY Acetaminophen-Cod #3 Tablet (Acetaminophen/Codeine Phosphate) 1 Each Tablet Metoprolol Tartrate 25 Mg Tablet 25 Mg PO BID next dose tonight 03/09 at 9:00 PM Allergies Allergies: Coded Allergies: Penicillins (Verified Allergy, Intermediate, Hives, 12/31/17) trouble breathing dexamethasone (Verified Allergy, Intermediate, 12/31/17) agitation diazepam (Verified Allergy, Intermediate, 12/31/17) nightmare meperidine (Verified Allergy, Intermediate, Hives, 12/31/17) morphine (Verified Allergy, Intermediate, Nausea and Vomiting, 12/31/17) Vitals VITALS Vital Signs Date Time Temp Pulse Resp B/P (MAP) Pulse Ox O2 Delivery O2 Flow Rate FiO2 01/07/19 13:00 76 97/56 (70) 01/07/19 11:59 97.6 20 98 Room Air 97.6 01/07/19 11:07 3.0 Labs Labs Laboratory Tests Test 01/05/19 17:20 01/05/19 21:30 01/06/19 02:02 01/06/19 03:52 White Blood Count 15.6 x10^3/uL (4.0-11.0) 13.6 x10^3/uL (4.0-11.0) Red Blood Count 4.59 x10^6/uL (3.50-5.40) 4.40 x10^6/uL (3.50-5.40) Hemoglobin 14.3 g/dL (12.0-15.5) 13.2 g/dL (12.0-15.5) Hematocrit 41.9 % (36.0-47.0) 40.3 % (36.0-47.0) Mean Corpuscular Volume 91 fL (79-100) 92 fL (79-100) Mean Corpuscular Hemoglobin 31 pg (25-35) 30 pg (25-35) Mean Corpuscular Hemoglobin Concent 34 g/dL (31-37) 33 g/dL (31-37) Red Cell Distribution Width 14.5 % (11.5-14.5) 14.7 % (11.5-14.5) Platelet Count 408 x10^3/uL (140-400) 360 x10^3/uL (140-400) Neutrophils (%) (Auto) 85 % (31-73) 73 % (31-73) Lymphocytes (%) (Auto) 9 % (24-48) 17 % (24-48) Monocytes (%) (Auto) 5 % (0-9) 9 % (0-9) Eosinophils (%) (Auto) 0 % (0-3) 1 % (0-3) Basophils (%) (Auto) 0 % (0-3) 1 % (0-3) Neutrophils # (Auto) 13.3 x10^3/uL (1.8-7.7) 10.0 x10^3/uL (1.8-7.7) Lymphocytes # (Auto) 1.4 x10^3/uL (1.0-4.8) 2.3 x10^3/uL (1.0-4.8) Monocytes # (Auto) 0.8 x10^3/uL (0.0-1.1) 1.2 x10^3/uL (0.0-1.1) Eosinophils # (Auto) 0.0 x10^3/uL (0.0-0.7) 0.1 x10^3/uL (0.0-0.7) Basophils # (Auto) 0.1 x10^3/uL (0.0-0.2) 0.1 x10^3/uL (0.0-0.2) Segmented Neutrophils % 85 % (35-66) Band Neutrophils % 5 % (0-9) Lymphocytes % 8 % (24-48) Monocytes % 2 % (0-10) Platelet Estimate Increased (ADEQUATE) Prothrombin Time 14.8 SEC (11.7-14.0) Prothromb Time International Ratio 1.2 (0.8-1.1) Sodium Level 137 mmol/L (136-145) 136 mmol/L (136-145) Potassium Level 5.4 mmol/L (3.5-5.1) 4.1 mmol/L (3.5-5.1) Chloride Level 100 mmol/L (98-107) 102 mmol/L (98-107) Carbon Dioxide Level 21 mmol/L (21-32) 20 mmol/L (21-32) Anion Gap 16 (6-14) 14 (6-14) Blood Urea Nitrogen 38 mg/dL (7-20) 36 mg/dL (7-20) Creatinine 1.9 mg/dL (0.6-1.0) 1.5 mg/dL (0.6-1.0) Estimated GFR (Cockcroft-Gault) 25.9 34.0 BUN/Creatinine Ratio 20 (6-20) Glucose Level 141 mg/dL (70-99) 102 mg/dL (70-99) Lactic Acid Level 2.3 mmol/L (0.4-2.0) 1.5 mmol/L (0.4-2.0) Calcium Level 9.2 mg/dL (8.5-10.1) 8.6 mg/dL (8.5-10.1) Magnesium Level 2.2 mg/dL (1.8-2.4) Total Bilirubin 0.8 mg/dL (0.2-1.0) Aspartate Amino Transf (AST/SGOT) 15 U/L (15-37) Alanine Aminotransferase (ALT/SGPT) 13 U/L (14-59) Alkaline Phosphatase 143 U/L (46-116) Creatine Kinase 23 U/L (26-192) Troponin I Quantitative < 0.017 ng/mL (0.000-0.055) MO-Xdt-H-Type Natriuretic Peptide 467 pg/mL (0-124) Total Protein 7.4 g/dL (6.4-8.2) Albumin 3.2 g/dL (3.4-5.0) Albumin/Globulin Ratio 0.8 (1.0-1.7) Lipase 75 U/L (73-393) Urine Collection Type Unknown Urine Color Eva Urine Clarity Cloudy Urine pH 5.0 Urine Specific Lindsay >=1.030 Urine Protein Negative mg/dL (NEG-TRACE) Urine Glucose (UA) Negative mg/dL (NEG) Urine Ketones (Stick) Trace mg/dL (NEG) Urine Blood Negative (NEG) Urine Nitrite Negative (NEG) Urine Bilirubin Small (NEG) Urine Urobilinogen Dipstick 1.0 mg/dL (0.2 mg/dL) Urine Leukocyte Esterase Moderate (NEG) Urine RBC 0 /HPF (0-2) Urine WBC 20-40 /HPF (0-4) Urine Squamous Epithelial Cells Mod /LPF Urine Bacteria Few /HPF (0-FEW) Urine Hyaline Casts Many /HPF Urine Mucus Marked /LPF Procalcitonin 0.12 ng/mL (0.00-0.10) Test 01/06/19 10:10 01/07/19 03:30 Influenza Type A Antigen Negative (NEGATIVE) Influenza Type B Antigen Negative (NEGATIVE) White Blood Count 11.6 x10^3/uL (4.0-11.0) Red Blood Count 4.17 x10^6/uL (3.50-5.40) Hemoglobin 12.8 g/dL (12.0-15.5) Hematocrit 38.4 % (36.0-47.0) Mean Corpuscular Volume 92 fL (79-100) Mean Corpuscular Hemoglobin 31 pg (25-35) Mean Corpuscular Hemoglobin Concent 33 g/dL (31-37) Red Cell Distribution Width 14.8 % (11.5-14.5) Platelet Count 397 x10^3/uL (140-400) Neutrophils (%) (Auto) 69 % (31-73) Lymphocytes (%) (Auto) 21 % (24-48) Monocytes (%) (Auto) 8 % (0-9) Eosinophils (%) (Auto) 1 % (0-3) Basophils (%) (Auto) 1 % (0-3) Neutrophils # (Auto) 8.0 x10^3/uL (1.8-7.7) Lymphocytes # (Auto) 2.4 x10^3/uL (1.0-4.8) Monocytes # (Auto) 0.9 x10^3/uL (0.0-1.1) Eosinophils # (Auto) 0.1 x10^3/uL (0.0-0.7) Basophils # (Auto) 0.1 x10^3/uL (0.0-0.2) Sodium Level 140 mmol/L (136-145) Potassium Level 4.1 mmol/L (3.5-5.1) Chloride Level 107 mmol/L (98-107) Carbon Dioxide Level 24 mmol/L (21-32) Anion Gap 9 (6-14) Blood Urea Nitrogen 26 mg/dL (7-20) Creatinine 1.1 mg/dL (0.6-1.0) Estimated GFR (Cockcroft-Gault) 48.7 Glucose Level 99 mg/dL (70-99) Calcium Level 8.4 mg/dL (8.5-10.1) Laboratory Tests Test 01/07/19 03:30 White Blood Count 11.6 x10^3/uL (4.0-11.0) Red Blood Count 4.17 x10^6/uL (3.50-5.40) Hemoglobin 12.8 g/dL (12.0-15.5) Hematocrit 38.4 % (36.0-47.0) Mean Corpuscular Volume 92 fL (79-100) Mean Corpuscular Hemoglobin 31 pg (25-35) Mean Corpuscular Hemoglobin Concent 33 g/dL (31-37) Red Cell Distribution Width 14.8 % (11.5-14.5) Platelet Count 397 x10^3/uL (140-400) Neutrophils (%) (Auto) 69 % (31-73) Lymphocytes (%) (Auto) 21 % (24-48) Monocytes (%) (Auto) 8 % (0-9) Eosinophils (%) (Auto) 1 % (0-3) Basophils (%) (Auto) 1 % (0-3) Neutrophils # (Auto) 8.0 x10^3/uL (1.8-7.7) Lymphocytes # (Auto) 2.4 x10^3/uL (1.0-4.8) Monocytes # (Auto) 0.9 x10^3/uL (0.0-1.1) Eosinophils # (Auto) 0.1 x10^3/uL (0.0-0.7) Basophils # (Auto) 0.1 x10^3/uL (0.0-0.2) Sodium Level 140 mmol/L (136-145) Potassium Level 4.1 mmol/L (3.5-5.1) Chloride Level 107 mmol/L (98-107) Carbon Dioxide Level 24 mmol/L (21-32) Anion Gap 9 (6-14) Blood Urea Nitrogen 26 mg/dL (7-20) Creatinine 1.1 mg/dL (0.6-1.0) Estimated GFR (Cockcroft-Gault) 48.7 Glucose Level 99 mg/dL (70-99) Calcium Level 8.4 mg/dL (8.5-10.1) Images Images CT scan from last month of the lower extremities report reviewed, images independently reviewed. I found this difficult to interpret because of the artifact from the prosthesis, and did not see the fracture reported by the radiologist. [facility] [address] [place] [address] IMAGING REPORT Signed PATIENT: PRINCE GARZON ACCOUNT: [id number] : 1945 LOCATION: ER AGE: 73 SEX: F EXAM STATUS: REG ER ORD. PHYSICIAN: LETY DONALD APRN REASON: knee pain possible occult fx PROCEDURE: CT LOWER EXTREMITY WO RIGHT Examination: CT LOWER EXTREMITY WO RIGHT History: Right knee pain Comparison/Correlation: 12/25/2018 bilateral knee x-ray exam Findings: Axial images of the right knee were obtained without contrast. Sagittal and coronal reformatted images were provided. Seated in streak artifact limits evaluation due to the presence of right total knee joint prosthesis.. No loosening suggested although streak artifact limits evaluation. Lipohemarthrosis is present. Fracture may present involving the distal femoral metaphysis posteromedially near the prosthesis. Subtle cortical defect is questioned at this site on sagittal image 34 of series 9. This finding is not well delineated on other planes possibly due to small size and streak artifact. Proximal tibia is unremarkable. Patella is grossly unremarkable. Proximal fibula is unremarkable. Quadriceps and patellar tendons appear to be intact on the basis of CT imaging. Impression: Nondisplaced fracture is questioned involving the distal femoral metaphysis posteromedially near the prosthesis. Lipohemarthrosis. PQRS Compliance Statement: One or more of the following individualized dose reduction techniques were utilized for this examination: 1. Automated exposure control 2. Adjustment of the mA and/or kV according to patient size 3. Use of iterative reconstruction technique Electronically signed by: Bereket Disla MD (12/25/2018 11:10 AM) [facility] DICTATED and SIGNED BY: BEREKET DISLA MD DATE: 12/25/18 1110 Report reviewed, images independently reviewed from right knee plain films also last month. No definitive fracture or loosening. [facility] [address] [place] [address] IMAGING REPORT Signed PATIENT: PRINCE GARZON ACCOUNT: [id number] : 1945 LOCATION: ER AGE: 73 SEX: F EXAM STATUS: REG ER ORD. PHYSICIAN: LETY DONALD APRN REASON: fall pain PROCEDURE: KNEE BILAT 3V Examination: KNEE BILAT 3V History: Fall, pain Comparison/Correlation: None Findings: 3 images of the right knee and 3 images of the left knee were obtained. Osteopenia noted. Right knee There is a fat fluid level within the right knee joint capsule of large size. Total right knee joint arthroplasty is present. No evidence of loosening. Left knee Severe left medial compartment narrowing is present. Spurring about the left knee is noted. Patellofemoral compartment narrowing is evident. Small left knee joint effusion is present. Impression: Severe left knee joint degenerative changes. Right lipohemarthrosis. Correlate with surgical history. Fracture line is not evident. Correlate for possibility of occult fracture. Electronically signed by: Bereket Disla MD (12/25/2018 9:56 AM) [facility] DICTATED and SIGNED BY: BEREKET DISLA MD DATE: 12/25/18 0956 Assessment/Plan Assessment/Plan I will obtain additional plain x-rays. SVETLANA LOVE MD Jan 07, 2019 14:46
--- NOTE | 2019-01-07 14:49 | NUR ---
AARON following pt. AARON spoke with pt about SNU, options and insurance coverage. Pt declined SNU and agreeable with home health services. Pt does not have agency preference and agreeable with [facility]. Plan 1. AARON phoned and faxed HH referral to [facility]: [phone], fax: [phone] 2. Anticipate pt will dc home with HH services tomorrow. Discussed with RN.
[2019-01-07] MEDS: VANCOMYCIN PER PHARMACY MC PRN ×2 (15:01→21:27)
--- NOTE | 2019-01-07 16:01 | RAD ---
EXAM: Right knee, 2 views. HISTORY: Pain. COMPARISON: 12/25/2018 FINDINGS: 2 views of the right knee are obtained. There is a right knee arthroplasty in expected position. There is a large knee effusion. IMPRESSION: 1. Right knee arthroplasty in expected position. 2. Large right knee effusion. Electronically signed by: Raysa Bravo MD (01/07/2019 3:58 PM) [id number]
[2019-01-07] MEDS: cefTRIAXone IV Push 1 GM VIAL. IVP SCH (18:01)
--- NOTE | 2019-01-07 18:20 | NUR ---
This RN received report from RAFIA Santos on 6S at approx 1810. Pt arrived on unit by bed at 1820. Pt in room 586. Pt oriented to room and call light. Pt has no complaints at this time, will continue to monitor pt.
[2019-01-07 21:23] LABS: VANC TR 14.3 mcg/mL (10.0-20.0)
--- NOTE | 2019-01-07 21:28 | NUR ---
Pharmacy Vancomycin Dosing Note S: Consulted to monitor and dose vancomycin started 01/05/19. O: PRINCE GARZON is a 73 year old F with Sepsis,UTI. Other Antibiotics: ROCEPHIN LABS: Last BUN: 68 Last Creatinine: 1.1 Creatinine Clearance: 62 mL/min Last WBC: 11.6 Last Procalcitonin: 0.12 Tmax (past 24 hours): 98.3 Microbiology: 01/07 BCX 01/05 NGTD Drug Levels: Last Trough level: 14.3 on 01/07/19 at 2030 Last dose given 01/06/19 at 2149 Vancomycin Dosing: Dosing Weight: Actual Target Trough: 15-20 A: Based on: THERAPEUTIC TROUGH LEVEL P: 1. Continue Vancomycin 1750 mg IV q24h 2. Follow up Trough level in 5-7 days or if renal function changes 3. Pharmacy will continue to monitor, follow and adjust therapy as needed. HEIDI JUAREZ RPH, 01/07/19 2583
[2019-01-07] MEDS: VANCOMYCIN 1.75 GM in IV NORMAL SALINE 500ML BAG 500 ML IV SCH (22:03)
[2019-01-08 03:00] VITALS: BP 116/62
[2019-01-08] MEDS: IV NORMAL SALINE 1000ML BAG 1,000 ML IV SCH (03:10)
[2019-01-08] MEDS: fentaNYL PF VIAL 100 MCG/2 ML VIAL IVP PRN ×2 (03:15→08:11)
[2019-01-08 05:37] LABS: BASO # 0.1 x10^3/uL (0.0-0.2); BASO % 1 % (0-3); EOS # 0.3 x10^3/uL (0.0-0.7); EOS % 3 % (0-3); HEMATOCRIT 39.1 % (36.0-47.0); LYMPH # 2.9 x10^3/uL (1.0-4.8); LYMPH % 27 % (24-48); MEAN CORPUSCULAR HEMOGLOBIN 31 pg (25-35); MEAN CORPUSCULAR HGB CONC 33 g/dL (31-37); MEAN CORPUSCULAR VOLUME 92 fL (79-100); MONO # 1.1 x10^3/uL (0.0-1.1); MONO % 10 % (0-9); NEUT # 6.4 x10^3/uL (1.8-7.7); NEUT % 60 % (31-73); PLATELET COUNT 419 x10^3/uL (140-400); RED BLOOD COUNT 4.23 x10^6/uL (3.50-5.40); WHITE BLOOD COUNT 10.8 x10^3/uL (4.0-11.0)
[2019-01-08 05:46] LABS: CALCIUM 8.5 mg/dL (8.5-10.1); GFR 54.3; POTASSIUM 4.1 mmol/L (3.5-5.1)
[2019-01-08 07:00] VITALS: BP 107/68
[2019-01-08] MEDS ORDERED: PANTOPRAZOLE 40 MG TABLET.DR. PO SCH (07:30)
[2019-01-08 09:15] VITALS: BP 116/62
[2019-01-08] MEDS: buPROPion SR 150 MG TABLET.SA PO SCH (09:15)
[2019-01-08] MEDS: METOPROLOL TART IMMED RELEASE 25 MG TABLET. PO SCH (09:15)
--- NOTE | 2019-01-08 10:08 | PDOC ---
PROGRESS NOTES Subjective Subjective feels ok ,ready to go home Objective Objective Vital Signs Date Time Temp Pulse Resp B/P (MAP) Pulse Ox O2 Delivery O2 Flow Rate FiO2 01/08/19 09:15 72 116/62 01/08/19 08:41 Room Air 01/08/19 08:11 20 92 3.0 01/08/19 07:00 98.6 98.6 Intake and Output 01/08/19 07:00 Intake Total 595 ml Balance 595 ml Intake Oral 595 ml # Voids 3 Physical Exam Abdomen: Soft Extremities: No clubbing General: Alert HEENT: Atraumatic Lungs: Clear to auscultation MUSCULOSKELETAL: Osteoarthritic changes both hands, Other (pain and swelling rt knee) Neuro: Normal speech Skin: No breakdown Diagnosis Problem List Problems Medical Problems: (1) Acute gastroenteritis Status: Acute (2) Elevated alkaline phosphatase level Status: Acute (3) Fever Status: Acute (4) Hyperkalemia Status: Acute (5) Hypoalbuminemia Status: Acute (6) Morbid obesity Status: Acute (7) Renal insufficiency Status: Acute (8) Sepsis Status: Acute (9) Tachycardia Status: Acute Assessment Assessment Problems Medical Problems: (1) Acute gastroenteritis Status: Acute (2) Elevated alkaline phosphatase level Status: Acute (3) Fever Status: Acute (4) Hyperkalemia Status: Acute (5) Hypoalbuminemia Status: Acute (6) Morbid obesity Status: Acute (7) Renal insufficiency Status: Acute (8) Sepsis Status: Acute (9) Tachycardia Status: Acute FINAL IMPRESSION:.sepsis 1. Acute Urinary tract infection? 2. Viral gastroenteritis.Viral illness 3. Hypertension. 4. Hyperlipidemia. 5. History of deep venous thrombosis, pulmonary embolism in the past, has IVC filter. 6. History of knee and shoulder surgeries. 7.Ac kidney failure due to vasomotor causes. PLAN: wbc normal 10 , improved with iv antibiotics. cr 1.1 improved with iv fluids . x ray knee no fracture. c/s neg. d/c home today with augmentin po bid x7 days. At this time, admit to hospital, IV fluids. Creatinine is coming down. Diarrhea is better. GI consult. Also, monitor WBC. Lactic acid is coming down with fluids, was given Rocephin IV and await urine cultures. Plan Plan of Care Problems Medical Problems: (1) Acute gastroenteritis Status: Acute (2) Elevated alkaline phosphatase level Status: Acute (3) Fever Status: Acute (4) Hyperkalemia Status: Acute (5) Hypoalbuminemia Status: Acute (6) Morbid obesity Status: Acute (7) Renal insufficiency Status: Acute (8) Sepsis Status: Acute (9) Tachycardia Status: Acute Comment Review of Relevant I have reviewed the following items keny (where applicable) has been applied. Labs Laboratory Tests Test 01/07/19 20:35 01/08/19 03:27 Vancomycin Level Trough 14.3 mcg/mL (10.0-20.0) Vancomycin Last Dose Date 01/06/19 Vancomycin Last Dose Time 2100 White Blood Count 10.8 x10^3/uL (4.0-11.0) Red Blood Count 4.23 x10^6/uL (3.50-5.40) Hemoglobin 13.0 g/dL (12.0-15.5) Hematocrit 39.1 % (36.0-47.0) Mean Corpuscular Volume 92 fL (79-100) Mean Corpuscular Hemoglobin 31 pg (25-35) Mean Corpuscular Hemoglobin Concent 33 g/dL (31-37) Red Cell Distribution Width 15.0 % (11.5-14.5) Platelet Count 419 x10^3/uL (140-400) Neutrophils (%) (Auto) 60 % (31-73) Lymphocytes (%) (Auto) 27 % (24-48) Monocytes (%) (Auto) 10 % (0-9) Eosinophils (%) (Auto) 3 % (0-3) Basophils (%) (Auto) 1 % (0-3) Neutrophils # (Auto) 6.4 x10^3/uL (1.8-7.7) Lymphocytes # (Auto) 2.9 x10^3/uL (1.0-4.8) Monocytes # (Auto) 1.1 x10^3/uL (0.0-1.1) Eosinophils # (Auto) 0.3 x10^3/uL (0.0-0.7) Basophils # (Auto) 0.1 x10^3/uL (0.0-0.2) Sodium Level 142 mmol/L (136-145) Potassium Level 4.1 mmol/L (3.5-5.1) Chloride Level 109 mmol/L (98-107) Carbon Dioxide Level 24 mmol/L (21-32) Anion Gap 9 (6-14) Blood Urea Nitrogen 21 mg/dL (7-20) Creatinine 1.0 mg/dL (0.6-1.0) Estimated GFR (Cockcroft-Gault) 54.3 Glucose Level 74 mg/dL (70-99) Calcium Level 8.5 mg/dL (8.5-10.1) Microbiology 01/06/19 Urine Culture - Final, Complete 01/06/19 Urine Culture Result 1 (AMADO) - Final, Complete 01/05/19 Blood Culture - Preliminary, Resulted NO GROWTH AFTER 2 DAYS Medications Current Medications Pantoprazole Sodium (Protonix) 40 mg DAILYAC PO Last administered on 01/08/19at 08:03; Start 01/08/19 at 07:30 Propofol 20 ml @ As Directed STK-MED ONCE IV ; Start 01/07/19 at 11:07; Stop 01/07/19 at 11:08; Status DC Vancomycin HCl (Vancomycin Trough Level) 1 each 1X ONCE MC Last administered on 01/07/19at 20:28; Start 01/07/19 at 20:30; Stop 01/07/19 at 20:31; Status DC Vitals/I & O Vital Sign - Last 24 Hours 01/07/19 01/07/19 01/07/19 01/07/19 10:13 10:45 10:51 10:51 Temp 97 97.0 Pulse 80 Resp 16 16 20 Pulse Ox 95 98 O2 Delivery Nasal Cannula Nasal Cannula Nasal Cannula O2 Flow Rate 3.0 3.0 3.0 01/07/19 01/07/19 01/07/19 01/07/19 11:07 11:23 11:53 11:59 Temp 97.3 97.6 97.3 97.6 Pulse 77 76 76 84 Resp 18 18 20 B/P (MAP) 125/59 128/56 128/56 133/78 (96) Pulse Ox 98 98 98 O2 Delivery Nasal Cannula Room Air Room Air Nasal Cannula O2 Flow Rate 3.0 01/07/19 01/07/19 01/07/19 01/07/19 12:15 12:30 12:45 13:00 Pulse 79 71 71 76 B/P (MAP) 141/78 (99) 150/74 (99) 130/68 (88) 97/56 (70) 01/07/19 01/07/19 01/07/19 01/07/19 13:30 14:00 15:00 18:01 Pulse 73 72 68 Resp 16 B/P (MAP) 92/62 (72) 96/66 (76) 119/62 (81) O2 Delivery Room Air 01/07/19 01/07/19 01/07/19 01/07/19 19:00 19:00 20:00 20:24 Temp 97.4 97.4 Pulse 80 80 Resp 18 B/P (MAP) 128/72 (90) 128/72 Pulse Ox 92 O2 Delivery Nasal Cannula Room Air Room Air 01/08/19 01/08/19 01/08/19 01/08/19 03:00 03:15 07:00 08:11 Temp 98.1 98.6 98.1 98.6 Pulse 72 89 Resp 18 18 20 B/P (MAP) 116/62 (80) 107/68 (81) Pulse Ox 97 92 99 92 O2 Delivery Room Air Room Air Room Air Room Air O2 Flow Rate 3.0 01/08/19 01/08/19 08:41 09:15 Pulse 72 B/P (MAP) 116/62 O2 Delivery Room Air Intake and Output 01/07/19 01/07/19 01/08/19 15:00 23:00 07:00 Intake Total 120 ml 200 ml 275 ml Balance 120 ml 200 ml 275 ml EVERTON LAUREN MD Jan 08, 2019 10:08
[2019-01-08] MEDS ORDERED: HYDR-3164 PO (10:15)
[2019-01-08] MEDS ORDERED: AMOX1TAB61 PO (10:15)
[2019-01-08] MEDS ORDERED: PANT40TA77 PO (10:15)
--- NOTE | 2019-01-08 11:26 | PDOC ---
Subjective: Subjective: Feels better - tolerating PO w/o dysphagia or n/v. Glad to be going home today. Objective: Vital Signs: Vital Signs Date Time Temp Pulse Resp B/P (MAP) Pulse Ox O2 Delivery O2 Flow Rate FiO2 01/08/19 09:15 72 116/62 01/08/19 08:41 Room Air 01/08/19 08:11 20 92 3.0 01/08/19 07:00 98.6 98.6 Labs: URINE CULTURE Final Final report URINE CULTURE RES 1 Final No growth BLOOD CULTURE Preliminary NO GROWTH AFTER 2 DAYS Laboratory Tests Test 01/07/19 20:35 01/08/19 03:27 Vancomycin Level Trough 14.3 mcg/mL Vancomycin Last Dose Date 01/06/19 Vancomycin Last Dose Time 2100 White Blood Count 10.8 x10^3/uL Red Blood Count 4.23 x10^6/uL Hemoglobin 13.0 g/dL Hematocrit 39.1 % Mean Corpuscular Volume 92 fL Mean Corpuscular Hemoglobin 31 pg Mean Corpuscular Hemoglobin Concent 33 g/dL Red Cell Distribution Width 15.0 % Platelet Count 419 x10^3/uL Neutrophils (%) (Auto) 60 % Lymphocytes (%) (Auto) 27 % Monocytes (%) (Auto) 10 % Eosinophils (%) (Auto) 3 % Basophils (%) (Auto) 1 % Neutrophils # (Auto) 6.4 x10^3/uL Lymphocytes # (Auto) 2.9 x10^3/uL Monocytes # (Auto) 1.1 x10^3/uL Eosinophils # (Auto) 0.3 x10^3/uL Basophils # (Auto) 0.1 x10^3/uL Sodium Level 142 mmol/L Potassium Level 4.1 mmol/L Chloride Level 109 mmol/L Carbon Dioxide Level 24 mmol/L Anion Gap 9 Blood Urea Nitrogen 21 mg/dL Creatinine 1.0 mg/dL Estimated GFR (Cockcroft-Gault) 54.3 Glucose Level 74 mg/dL Calcium Level 8.5 mg/dL Imaging: Knee X-Ray 01/07 IMPRESSION: 1. Right knee arthroplasty in expected position. 2. Large right knee effusion. EGD 01/07 E--? Gill's 33-34cm. GEJ at 34. Irregular SQ junction c/w some active reflux. Biopsies to r/o Gill's. Dilated with 48F traylor w/o resistance. G--Apparent scar anterior wall from prior perf repair. No appreciable HH, though could be large. D--Normal to second portion. IMP: GERD Gill's? S/p gastric repair. REC: PPI Await biopsies. PE: GEN: NAD - dressed to leave LUNGS: CTAB HEART: RRR ABD: S/ND/NT NEURO/PSYCH: A & O 3 A/P: N/v, dysphagia resolved GERD -- DC per primary on PPI QD. Follow-up w/ Dr. Parra re: biopsy results. MARYJO LOYA Jan 08, 2019 11:26
--- NOTE | 2019-01-08 11:52 | NUR ---
Discharge Note: PRINCE GARZON Discharge instructions and discharge home medications reviewed with Patient and a copy given. All questions have been answered and understanding verbalized. The following instructions and handouts were given: Discharge Instructions, Presriptions, Patient Teaching Discontinued lines and drains: Left PIV removed, Catheter intact. Patient discharged to Home with Self-Care via Private Vehicle
--- NOTE | 2019-01-08 14:07 | PATHOLOGY ---
[facility] Accession Number: [id number] . 01 Material submitted: . esophagus - DISTAL ESOPHAGUS BIOPSY. Modifiers: distal . 01 Clinical history: . Dysphagia . 02 Diagnosis: Esophageal biopsies, distal esophagus: - Segments of gastric body and gastric cardia mucosa with focal contiguous squamous esophageal mucosa showing chronic inflammation. (JPM:aliyah; 01/08/2019) S 01/08/2019 0920 Local . 02 Comment: Sections of the distal esophageal biopsy reveal segments of gastric body and gastric cardia mucosa with focal contiguous squamous esophageal mucosa showing congestion and mild to moderate chronic inflammation. There is no evidence of Gill's change, dysplasia, or malignancy. (JPM:aliyah; 01/08/2019) . 02 Electronically signed: . Spencer Mcginnis MD, Pathologist NPI- [id number] . 01 Gross description: . The specimen is received in formalin, labeled "Zain, Obdulia, distal esophagus BX", are three irregular fragments of llamas-nicholson nicholson soft tissue measuring 0.7 x 0.3 x 0.1 cm in aggregate. Entirely submitted in A1. ([facility]; 01/07/2019) [facility] 01/08/2019 0918 Local . 02 Pathologist provided ICD-10: K20.9 . 02 CPT . 424941 Specimen Comment: A courtesy copy of this report has been sent to Specimen Comment: [phone], , , . Specimen Comment: Report sent to ,DR BREAUX,DR LAUREN / DR WEISS Performed at: [address], [place], [place] [id number] MD William Miller MD Phone: [phone] Performed at: [address] [id number] MD Spencer Mcginnis MD Phone: [phone]
--- NOTE | 2019-01-13 10:10 | PDOC ---
Provider Note Provider Note Discharge summary dictated.#[id number] EVERTON LAUREN MD Jan 13, 2019 10:10
--- NOTE | 2019-01-13 13:35 | DS ---
DATE OF DISCHARGE: 01/08/2019 REASON FOR ADMISSION TO THE HOSPITAL: Fever, elevated white count. CONSULTATION: Dr. Parra. PROCEDURE DONE: EGD. HISTORY OF PRESENT ILLNESS: The patient is a 73-year-old female. The patient says she was not feeling well for a week, had a fever with chills and she also was having nausea, vomiting and diarrhea. The patient was seen by GI, had an EGD, which shows Gill's. The patient has history of gastric repair in the past and the patient had dilatation done. Biopsy shows chronic gastritis. No evidence of Gill's or malignancy. The patient also had a white count of 16,000. Blood cultures negative. Urine had leukocytes, but cultures came back negative and there is some drainage at the ventral hernia repair; a culture was done, that came back negative. However, the patient's condition improved. No more diarrhea. White count came down to 10,000 from 15,000 and she was given fluids. She also had renal insufficiency. BUN was 38, creatinine 1.9; with fluids, BUN was 21, creatinine 1.0. The patient was discharged to home with oral antibiotics. Influenza was negative. All the cultures were negative. FINAL DIAGNOSES: 1. Febrile illness. 2. Sepsis. Cultures are all negative, improved with antibiotics. 3. Gastritis, had esophagogastroduodenoscopy with dilatation. 4. Diabetes. 5. Hypertension. 6. Recent left knee injury, had a fall. The patient had previous knee replacement. X-ray and CT scan did not show any fractures. The patient was discharged with a knee brace. Follow up with PCP, Dr. Islas, in 1 week. EVERTON LAUREN MD DR: TAMY/wilian JOB#: [id number] / [id number] NICKY Edwards
== END 2019-01-08 11:15 | disposition home or self-care (01) | DRG 871 ==
LOC: ER 16:20 → 6 SOUTH 17:12 → 5 SOUTH 01-07 18:18
PROVIDERS: ADMIT Internal Medicine; ATTEND Internal Medicine
PROC: 0DB58ZX Excision of Esophagus, Via Natural or Artificial Opening Endoscopic, Diagnostic (ICD-10-PCS; principal; 2019-01-07 11:00)
DX: A41.9 Sepsis, unspecified organism (principal); N17.0 Acute kidney failure with tubular necrosis; N39.0 Urinary tract infection, site not specified; A08.4 Viral intestinal infection, unspecified; E04.2 Nontoxic multinodular goiter; E66.01 Morbid (severe) obesity due to excess calories; E78.00 Pure hypercholesterolemia, unspecified; E78.5 Hyperlipidemia, unspecified; E87.5 Hyperkalemia; F32.9 Major depressive disorder, single episode, unspecified; F41.9 Anxiety disorder, unspecified; G89.29 Other chronic pain; I10 Essential (primary) hypertension; K21.0 Gastro-esophageal reflux disease with esophagitis; K57.90 Diverticulosis of intestine, part unspecified, without perforation or abscess without bleeding; Z79.01 Long term (current) use of anticoagulants; Z79.82 Long term (current) use of aspirin; Z83.3 Family history of diabetes mellitus; Z86.711 Personal history of pulmonary embolism; Z86.718 Personal history of other venous thrombosis and embolism; Z90.710 Acquired absence of both cervix and uterus; Z90.81 Acquired absence of spleen; Z95.828 Presence of other vascular implants and grafts; Z96.619 Presence of unspecified artificial shoulder joint; Z96.651 Presence of right artificial knee joint; M19.90 Unspecified osteoarthritis, unspecified site; Z88.0 Allergy status to penicillin; Z88.8 Allergy status to other drugs, medicaments and biological substances
CPT/HCPCS: 36415; 43239; 43450; 71045; 73560; 80048; 80053; 80202; 81001; 82550; 83605; 83690; 83735; 83880; 84145; 84484; 85007; 85025; 85610; 87040; 87071; 87075; 87086; 87804; 88305; 93005; 96361; 96374; 96375; C9113; J0696; J1200; J1650; J2405; J2704; J3010; J3370; J7030; J7040; 97116; 97535; 99291-25; G0378

== ENCOUNTER 2019-01-16 14:40 | Inpatient (IN) | payer MEDICARE, OTHER ==
[~2019-01-16] VITALS: Ht 170.2 cm; Wt 122.1 kg
[~2019-01-16 14:40] MED LIST changes: +AMOX1TAB61 PO; +HYDR-3164 PO
[2019-01-16 15:48] VITALS: BP 127/55
[2019-01-16] MEDS ORDERED: ANTI-COAG MONITOR BY PHARMACY. MC PRN (16:15)
[2019-01-16 16:36] LABS: BASO # 0.2 x10^3/uL (0.0-0.2); BASO % 1 % (0-3); EOS # 0.2 x10^3/uL (0.0-0.7); EOS % 1 % (0-3); HEMATOCRIT 37.5 % (36.0-47.0); HEMOGLOBIN 12.4 g/dL (12.0-15.5); LYMPH # 2.2 x10^3/uL (1.0-4.8); LYMPH % 16 % (24-48); MEAN CORPUSCULAR HEMOGLOBIN 30 pg (25-35); MEAN CORPUSCULAR HGB CONC 33 g/dL (31-37); MEAN CORPUSCULAR VOLUME 91 fL (79-100); MONO % 8 % (0-9); NEUT # 9.9 x10^3/uL (1.8-7.7); NEUT % 74 % (31-73); PLATELET COUNT 467 x10^3/uL (140-400); RED BLOOD COUNT 4.12 x10^6/uL (3.50-5.40); RED CELL DISTRIBUTION WIDTH 14.9 % (11.5-14.5); WHITE BLOOD COUNT 13.5 x10^3/uL (4.0-11.0)
[2019-01-16 16:48] LABS: ALBUMIN 2.5 g/dL (3.4-5.0); ALBUMIN/GLOBULIN RATIO 0.5 (1.0-1.7); CALCIUM 8.9 mg/dL (8.5-10.1); CREATININE 0.8 mg/dL (0.6-1.0); GFR 70.3; POTASSIUM 3.7 mmol/L (3.5-5.1); TOTAL BILIRUBIN 0.3 mg/dL (0.2-1.0); TOTAL PROTEIN 7.3 g/dL (6.4-8.2)
[2019-01-16 16:49] LABS: PROTHROMBIN TIME PATIENT 13.9 SEC (11.7-14.0)
--- NOTE | 2019-01-16 17:04 | NUR ---
Right lower extremity venous ultrasound performed at [facility], showing an extensive DVT of the right lower extremity from the common femoral vein to the popliteal vein. There is a thrombosis of the greater saphenous vein from the groin to the lower leg region. Extensive subcutaneous edema.
--- NOTE | 2019-01-16 17:36 | NUR ---
Pharmacy Warfarin Dosing Note S:Pharmacy consulted to assist with anticoagulation therapy started with target INR: O:PRINCE GARZON is a 73 year old F with LABS: Last INR: Last HGB: Last HCT: Last PLT: Last dose of given on at Previous Regimen: Vitamin K given: Drug Interaction Changes: Ongoing Drug Interactions: A:INR of is below desired range. Target range for this patient is: P: Warfarin dose: Today at 1600 Bridge Therapy: HEPARIN Next INR due IN AM Pharmacy anticoagulation service will continue to follow. [facility], 01/16/19 0581
[2019-01-16] MEDS ORDERED: HEPARIN for IV BOLUS 10,000 UNIT/10 ML VIAL. IV PRN ×2 (17:45)
[2019-01-16] MEDS ORDERED: HEPARIN 25,000UTS/500ML PREMIX 500 ML IV PRN (17:45)
[2019-01-16] MEDS ORDERED: WARFARIN 3 MG TABLET. PO ONE (18:30)
[2019-01-16 19:11] VITALS: BP 105/63
[2019-01-16] MEDS: METOPROLOL TART IMMED RELEASE 25 MG TABLET. PO SCH (21:00)
[2019-01-16] MEDS: HYDROcodone/APAP 5/325MG 1 TAB TABLET PO PRN (21:32)
[2019-01-16] MEDS: buPROPion SR 150 MG TABLET.SA PO SCH (21:32)
[2019-01-16 23:44] VITALS: BP 115/59
[2019-01-17 02:20] VITALS: BP 130/62
[2019-01-17] MEDS: HYDROcodone/APAP 5/325MG 1 TAB TABLET PO PRN ×2 (04:02→15:20)
[2019-01-17 05:27] LABS: PROTHROMBIN TIME PATIENT 15.7 SEC (11.7-14.0)
[2019-01-17 07:05] VITALS: BP 125/66
[2019-01-17] MEDS: HEPARIN 25,000UTS/500ML PREMIX 500 ML IV PRN ×2 (08:24→21:42)
[2019-01-17] MEDS: PANTOPRAZOLE 40 MG TABLET.DR. PO SCH (08:24)
[2019-01-17] MEDS: METOPROLOL TART IMMED RELEASE 25 MG TABLET. PO SCH ×2 (08:25→21:43)
[2019-01-17] MEDS: buPROPion SR 150 MG TABLET.SA PO SCH ×2 (08:25→21:43)
--- NOTE | 2019-01-17 08:52 | PDOC ---
Provider Note Provider Note Pt admitted for rt leg swelling ,DVT acute, for anticoagulation.#[id number]. EVERTON LAUREN MD Jan 17, 2019 08:52
[2019-01-17] MEDS ORDERED: HEPARIN for IV BOLUS 10,000 UNIT/10 ML VIAL. IV PRN ×2 (09:00)
--- NOTE | 2019-01-17 10:19 | EKG ---
[facility] [address] [place] [address] Test Date: 2019-01-17 Test Time: 10:10:36 Pat Name: PRINCE GARZON Department: Room: 648 1 Gender: F Fur Cutter: : 1945 Requested By: EVERTON LAUREN Order Number: [id number] Reading MD: Measurements Intervals [place] Rate: 64 P: 27 AL: 166 QRS: -7 QRSD: 96 T: 4 QT: 404 QTc: 421 Interpretive Statements SINUS RHYTHM LEFTWARD AXIS OTHERWISE NORMAL ECG RI6.01 Unconfirmed report Compared to ECG 01/05/2019 16:24:50 Left-axis deviation now present Sinus tachycardia no longer present
[2019-01-17 11:13] VITALS: BP 121/65
--- NOTE | 2019-01-17 11:53 | HP ---
ADMIT DATE: 01/16/2019 LOCATION: 8. REASON FOR ADMISSION TO THE HOSPITAL: DVT, right lower leg. HISTORY OF PRESENT ILLNESS: The patient is a 73-year-old female. The patient had a knee replacement in 2008 and approximately a month ago, she had a fall and injured the knee, but luckily nothing was broken and she was having pain and swelling in the right leg, seen Dr. Islas, PCP. She had a venous Doppler which shows extensive DVT, right lower extremity and the patient was admitted for anticoagulation. PAST MEDICAL HISTORY: The patient has a history of deep venous thrombosis in the past. She has IVC filter. She was on Coumadin for a couple of years, stopped 3 years ago; hypertension; hyperlipidemia; depression. PAST SURGICAL HISTORY: She had splenectomy, hernia repair, IVC filter, right shoulder replacement, right knee replacement and she had an EGD not too long ago. ALLERGIES: PENICILLIN, DEXAMETHASONE, DIAZEPAM, DEMEROL AND MORPHINE. MEDICATIONS AT HOME: Bupropion 150 mg twice a day, metoprolol 25 mg twice a day, Tylenol No. 3, coconut oil, turmeric 1 daily. PERSONAL HISTORY: Ex-smoker, denies smoking, never smoked for a couple of years. Denies alcohol or street drugs. FAMILY HISTORY: Positive for diabetes, heart disease. REVIEW OF SYMPTOMS: Complains of pain in the knee area, right leg and also extensive swelling in the right leg. Denies any shortness of breath or chest pain. Rest of the 14-system was reviewed and negative. PHYSICAL EXAMINATION: VITAL SIGNS: At the time of admission shows a temperature 98, pulse 79, respirations 16, blood pressure 127/55, 96 on room air. HEENT: Head is atraumatic. Pupils equal. Oral cavity: No congestion. NECK: Supple. Thyroid not enlarged. JVD not elevated. CHEST: Symmetrical. CARDIOVASCULAR: S1, S2. LUNGS: Clear. ABDOMEN: Soft. There is a scar in the midline from previous hernia repair. She has a small drainage in the upper epigastric area, pinpoint area. Soft. Pulses present, no mass palpable. EXTERNAL GENITALIA: No Hanley. RECTAL: Deferred. EXTREMITIES: The patient has extensive 3+ edema, right leg has a scar of right knee replacement and 3+ edema and the left leg is not swollen. NEUROLOGIC: Moving all extremities. No focal deficits noted. LABORATORY DATA: Shows a white count of 14, hemoglobin 12, platelets 467. INR 1.1. Electrolytes show sodium 137, potassium 3.7, chloride 104, bicarbonate 25, BUN 16, creatinine 0.8. LFTs are normal. FINAL IMPRESSION: 1. Extensive DVT, right leg. 2. Recent fall, injury to the right knee. 3. History of knee replacement 10 years ago. 4. History of previous DVTs, history of IVC filter. 5. Hypertension. 6. Depression. 7. Obesity. PLAN: At this time, the patient was admitted to the hospital. Anticoagulation was started on heparin drip and also started on Coumadin and hopefully should be in the hospital for 2-3 days and discharged on oral anticoagulants. EVERTON LAUREN MD DR: TAMY/wilian JOB#: [id number] / [id number] Joanne [place]
--- NOTE | 2019-01-17 12:49 | RAD ---
Examination: PORTABLE CHEST 1V History: DVT Comparison/Correlation: 01/05/2019 Portable Chest X-ray Exam Findings: Portable upright frontal view chest was obtained. Heart size and pulmonary vessels are normal. No infiltrate or pleural effusion. No pneumothorax. Right shoulder prosthesis is present. Impression: No acute process. Electronically signed by: Bereket Rodrigues MD (01/17/2019 12:46 PM) [facility]
[2019-01-17 15:00] VITALS: BP 126/56
[2019-01-17] MEDS ORDERED: WARFARIN 4 MG TABLET. PO ONE (16:00)
--- NOTE | 2019-01-17 16:19 | NUR ---
Pharmacy Warfarin Dosing Note S: Pharmacy consulted to assist with anticoagulation therapy started 01/16/19 O: PRINCE GARZON is a 73 year old F with acute DVT LABS: Last INR: 1.3 Last HGB: 12.4 Last HCT: 37.5 Last PLT: 467 Last dose of 6 mg given on 01/16/19 at 1911 A:INR of 1.3 is below desired range, trending up from baseline INR of 1.1 on admission. Patient was given warfarin 6 mg on 01/16. P: Warfarin dose: 4 mg Today at 1600 Bridge Therapy: Heparin Therapeutic Next INR due 01/18/19 Pharmacy anticoagulation service will continue to follow. [address], [facility], 01/17/19 2258
[2019-01-17 19:52] VITALS: BP 124/56
[2019-01-17 23:15] VITALS: BP 116/52
[2019-01-18] VITALS (7 sets, daily range): BP systolic 9–123; BP diastolic 53–74
[2019-01-18] MEDS: HYDROcodone/APAP 5/325MG 1 TAB TABLET PO PRN ×3 (01:43→21:58)
[2019-01-18 04:08] LABS: BASO # 0.2 x10^3/uL (0.0-0.2); BASO % 2 % (0-3); EOS # 0.2 x10^3/uL (0.0-0.7); EOS % 2 % (0-3); HEMATOCRIT 34.2 % (36.0-47.0); HEMOGLOBIN 11.4 g/dL (12.0-15.5); LYMPH % 22 % (24-48); MEAN CORPUSCULAR HEMOGLOBIN 30 pg (25-35); MEAN CORPUSCULAR HGB CONC 33 g/dL (31-37); MEAN CORPUSCULAR VOLUME 90 fL (79-100); MONO # 1.3 x10^3/uL (0.0-1.1); MONO % 10 % (0-9); NEUT # 8.6 x10^3/uL (1.8-7.7); NEUT % 64 % (31-73); PLATELET COUNT 437 x10^3/uL (140-400); RED BLOOD COUNT 3.81 x10^6/uL (3.50-5.40); RED CELL DISTRIBUTION WIDTH 14.5 % (11.5-14.5); WHITE BLOOD COUNT 13.4 x10^3/uL (4.0-11.0)
[2019-01-18 04:16] LABS: PROTHROMBIN TIME PATIENT 15.4 SEC (11.7-14.0)
[2019-01-18] MEDS: buPROPion SR 150 MG TABLET.SA PO SCH ×2 (08:37→21:57)
[2019-01-18] MEDS: PANTOPRAZOLE 40 MG TABLET.DR. PO SCH (08:37)
[2019-01-18] MEDS: METOPROLOL TART IMMED RELEASE 25 MG TABLET. PO SCH ×2 (09:00→22:00)
--- NOTE | 2019-01-18 12:35 | PDOC ---
PROGRESS NOTES Subjective Subjective pain left knee Objective Objective Vital Signs Date Time Temp Pulse Resp B/P (MAP) Pulse Ox O2 Delivery O2 Flow Rate FiO2 01/18/19 11:59 99/57 (71) 01/18/19 11:58 98.2 71 18 96 Room Air 98.2 Intake and Output 01/18/19 07:00 Intake Total 810 ml Balance 810 ml Intake Oral 810 ml # Voids 5 Physical Exam Abdomen: Soft Heart: Regular rate, Normal S1, Normal S2 Extremities: No clubbing General: Alert Lungs: Clear to auscultation MUSCULOSKELETAL: Osteoarthritic changes both hands, Other Neuro: Normal speech Skin: No breakdown COMMENT rt leg less swollen today Assessment Assessment FINAL IMPRESSION: 1. Extensive DVT, right leg. 2. Recent fall, injury to the right knee. 3. History of knee replacement 10 years ago. 4. History of previous DVTs, history of IVC filter. 5. Hypertension. 6. Depression. 7. Obesity. PLAN: iv heparin drip. pt/ot pain control. labs reviewed ok. At this time, the patient was admitted to the hospital. Anticoagulation was started on heparin drip and also started on Coumadin and hopefully should be in the hospital for 2-3 days and discharged on oral anticoagulants. Comment Review of Relevant I have reviewed the following items keny (where applicable) has been applied. Labs Laboratory Tests Test 01/17/19 15:25 01/17/19 22:05 01/18/19 03:45 Heparin Anti-Xa Act, Unfractionated 0.84 IU/mL (0.30-0.70) 0.48 IU/mL (0.30-0.70) 0.27 IU/mL (0.30-0.70) White Blood Count 13.4 x10^3/uL (4.0-11.0) Red Blood Count 3.81 x10^6/uL (3.50-5.40) Hemoglobin 11.4 g/dL (12.0-15.5) Hematocrit 34.2 % (36.0-47.0) Mean Corpuscular Volume 90 fL (79-100) Mean Corpuscular Hemoglobin 30 pg (25-35) Mean Corpuscular Hemoglobin Concent 33 g/dL (31-37) Red Cell Distribution Width 14.5 % (11.5-14.5) Platelet Count 437 x10^3/uL (140-400) Neutrophils (%) (Auto) 64 % (31-73) Lymphocytes (%) (Auto) 22 % (24-48) Monocytes (%) (Auto) 10 % (0-9) Eosinophils (%) (Auto) 2 % (0-3) Basophils (%) (Auto) 2 % (0-3) Neutrophils # (Auto) 8.6 x10^3/uL (1.8-7.7) Lymphocytes # (Auto) 3.0 x10^3/uL (1.0-4.8) Monocytes # (Auto) 1.3 x10^3/uL (0.0-1.1) Eosinophils # (Auto) 0.2 x10^3/uL (0.0-0.7) Basophils # (Auto) 0.2 x10^3/uL (0.0-0.2) Prothrombin Time 15.4 SEC (11.7-14.0) Prothromb Time International Ratio 1.3 (0.8-1.1) Medications Current Medications Warfarin Sodium (Coumadin) 4 mg 1X WARF ONCE PO Last administered on 01/17/19at 16:16; Start 01/17/19 at 16:00; Stop 01/17/19 at 16:01; Status DC Vitals/I & O Vital Sign - Last 24 Hours 01/17/19 01/17/19 01/17/19 01/17/19 15:00 15:20 16:20 19:52 Temp 98.9 98.4 98.9 98.4 Pulse 73 85 Resp 18 18 B/P (MAP) 126/56 (79) 124/56 (78) Pulse Ox 97 93 93 96 O2 Delivery Room Air Room Air Room Air Room Air 01/17/19 01/17/19 01/17/19 01/18/19 20:16 21:43 23:15 01:43 Temp 99.3 99.3 Pulse 85 78 Resp 18 B/P (MAP) 124/56 116/52 (73) Pulse Ox 97 O2 Delivery Room Air Room Air Room Air 01/18/19 01/18/19 01/18/19 01/18/19 02:50 03:14 07:55 08:00 Temp 98.5 98.6 98.5 98.6 Pulse 72 68 Resp 18 18 B/P (MAP) 114/61 (78) 100/53 (69) Pulse Ox 96 95 O2 Delivery Room Air Room Air Room Air Room Air 01/18/19 01/18/19 01/18/19 09:00 11:58 11:59 Temp 98.2 98.2 Pulse 71 71 Resp 18 B/P (MAP) 98/57 9/57 (41) 99/57 (71) Pulse Ox 96 O2 Delivery Room Air Intake and Output 01/17/19 01/17/19 01/18/19 15:00 23:00 07:00 Intake Total 360 ml 240 ml 210 ml Balance 360 ml 240 ml 210 ml EVERTON LAUREN MD Jan 18, 2019 12:35
--- NOTE | 2019-01-18 14:29 | NUR ---
Pharmacy Warfarin Dosing Note S: Pharmacy consulted to assist with anticoagulation therapy started 01/16/19 O: PRINCE GARZON is a 73 year old F with DVT LABS: Last INR: 1.3 Last HGB: 11.4 Last HCT: 34.2 Last PLT: 437 Last dose of 4 mg given on 01/17/19 at 1616 A:INR of 1.3 is below desired range. Target range for this patient is: 2 -3 P: Warfarin dose: 5 mg Today at 1600 Bridge Therapy: Heparin Therapeutic Next INR due tomorrow Pharmacy anticoagulation service will continue to follow. Arelis Cevallos [facility], 01/18/19 [id number]
[2019-01-18] MEDS: HEPARIN 25,000UTS/500ML PREMIX 500 ML IV PRN (14:47)
[2019-01-18] MEDS ORDERED: WARFARIN 5 MG TABLET. PO ONE (16:00)
[2019-01-19 03:05] VITALS: BP 118/56
[2019-01-19] MEDS: HEPARIN 25,000UTS/500ML PREMIX 500 ML IV PRN (03:57)
[2019-01-19] MEDS: HYDROcodone/APAP 5/325MG 1 TAB TABLET PO PRN (05:52)
--- NOTE | 2019-01-19 05:57 | NUR ---
Patient on Heparin drip due to right leg dvt, UFH ordered for 0030, two previous labs within normal range. Lab resulted at 0030 low at 0.18. Lab reordered for verification. Redraw low at 0.17. Per protocol, Heparin bolus to be administered. Upon entrance to room, this nurse realized IV was infiltrated, area was swollen and red at site. IV was removed, new IV was placed. Will order UFH in 3hours for a more accurate reading. Will continue to monitor.
[2019-01-19 07:00] VITALS: BP 118/59
[2019-01-19] MEDS: buPROPion SR 150 MG TABLET.SA PO SCH ×2 (08:51→21:11)
[2019-01-19] MEDS: PANTOPRAZOLE 40 MG TABLET.DR. PO SCH (08:51)
[2019-01-19] MEDS: METOPROLOL TART IMMED RELEASE 25 MG TABLET. PO SCH ×2 (08:51→21:12)
[2019-01-19 10:39] VITALS: BP 127/62
[2019-01-19 10:44] LABS: PROTHROMBIN TIME PATIENT 20.3 SEC (11.7-14.0)
[2019-01-19 10:45] LABS: UNFRACTIONATED HEPARIN TESTING 0.26 IU/mL (0.30-0.70)
--- NOTE | 2019-01-19 12:47 | PDOC ---
PROGRESS NOTES Subjective Subjective feels ok , pt want to go home on newer anticoagulants ,donot want to take coumadin Objective Objective Vital Signs Date Time Temp Pulse Resp B/P (MAP) Pulse Ox O2 Delivery O2 Flow Rate FiO2 01/19/19 10:39 98.0 70 19 127/62 (83) 96 Room Air 98.0 Intake and Output 01/19/19 07:00 Intake Total 600 ml Balance 600 ml Intake Oral 600 ml # Voids 3 Physical Exam Abdomen: Soft Heart: Regular rate, Normal S1, Normal S2 Extremities: No clubbing General: Alert Lungs: Clear to auscultation MUSCULOSKELETAL: Osteoarthritic changes both hands, Other Neuro: Normal speech Skin: No breakdown COMMENT rt leg less swollen today Assessment Assessment FINAL IMPRESSION: 1. Extensive DVT, right leg. 2. Recent fall, injury to the right knee. 3. History of knee replacement 10 years ago. 4. History of previous DVTs, history of IVC filter. 5. Hypertension. 6. Depression. 7. Obesity. PLAN:start on Xeralto d/c iv heparin drip.d/c coumadin,pt donot want to take coumadin at home pt/ot pain control. labs reviewed ok. inr 1.8. d/c home tomorrow spoke with pharmacy Comment Review of Relevant I have reviewed the following items keny (where applicable) has been applied. Labs Laboratory Tests Test 01/18/19 18:20 01/19/19 00:15 01/19/19 03:00 01/19/19 10:00 Heparin Anti-Xa Act, Unfractionated 0.37 IU/mL (0.30-0.70) 0.18 IU/mL (0.30-0.70) 0.17 IU/mL (0.30-0.70) 0.26 IU/mL (0.30-0.70) Prothrombin Time 20.3 SEC (11.7-14.0) Prothromb Time International Ratio 1.8 (0.8-1.1) Medications Current Medications Rivaroxaban (Xarelto) 15 mg BIDWMEALS PO ; Start 01/19/19 at 17:00; Status UNV Warfarin Sodium (Coumadin) 5 mg 1X WARF ONCE PO Last administered on 01/18/19at 17:37; Start 01/18/19 at 16:00; Stop 10/20/19 at 12:42; Status DC Vitals/I & O Vital Sign - Last 24 Hours 01/18/19 01/18/19 01/18/19 01/18/19 15:28 15:54 16:28 19:05 Temp 97.7 98.1 97.7 98.1 Pulse 92 89 Resp 18 19 18 B/P (MAP) 120/74 (89) 108/59 (75) Pulse Ox 97 97 95 O2 Delivery Room Air Room Air Room Air 01/18/19 01/18/19 01/18/19 01/18/19 20:05 21:58 22:00 23:05 Temp 98.8 98.8 Pulse 88 72 Resp 18 B/P (MAP) 140/65 123/71 (88) Pulse Ox 97 O2 Delivery Room Air Room Air Room Air 01/18/19 01/19/19 01/19/19 01/19/19 23:35 03:05 05:52 06:52 Temp 98.7 98.7 Pulse 73 Resp 18 B/P (MAP) 118/56 (76) Pulse Ox 94 96 O2 Delivery Room Air Room Air Room Air Room Air 01/19/19 01/19/19 01/19/19 01/19/19 07:00 08:00 08:51 10:39 Temp 98.2 98.0 98.2 98.0 Pulse 76 76 70 Resp 19 19 B/P (MAP) 118/59 (78) 118/59 127/62 (83) Pulse Ox 96 96 O2 Delivery Room Air Room Air Room Air Intake and Output 0 01/18/19 01/18/19 01/19/19 15:00 23:00 07:00 Intake Total 600 ml Balance 600 ml EVERTON LAUREN MD Jan 19, 2019 12:47
[2019-01-19] MEDS ORDERED: HEPARIN 25,000UTS/500ML PREMIX 500 ML IV SCH (13:00)
[2019-01-19] MEDS ORDERED: HEPARIN for IV BOLUS 10,000 UNIT/10 ML VIAL. IV PRN ×2 (13:00)
[2019-01-19] MEDS ORDERED: WARF-78 PO (13:22)
[2019-01-19 14:40] VITALS: BP 125/60
--- NOTE | 2019-01-19 15:03 | NUR ---
Pharmacy Warfarin Dosing Note S: Pharmacy consulted to assist with anticoagulation therapy started 01/16/19 O: PRINCE GARZON is a 73 year old F with DVT/PE LABS: Last INR: 1.8 Last HGB: 11.4 Last HCT: 34.2 Last PLT: 437 Last dose of 4 mg given on 01/18/19 at 1428 A:INR of 1.8 is below desired range. Target range for this patient is: 2 -3 P: Warfarin dose: 3 mg Today at 1600 Bridge Therapy: Heparin Therapeutic Next INR due tomorrow Pharmacy anticoagulation service will continue to follow. Arelis Cevallos Dolores, 01/19/19 0829
[2019-01-19] MEDS ORDERED: WARFARIN 3 MG TABLET. PO ONE (16:00)
[2019-01-19] MEDS ORDERED: RIVAROXABAN 15 MG TABLET. PO SCH (17:00)
[2019-01-19 19:05] VITALS: BP 107/59
[2019-01-19 23:05] VITALS: BP 112/63
[2019-01-20 03:05] VITALS: BP 121/55
[2019-01-20 05:30] LABS: BASO # 0.1 x10^3/uL (0.0-0.2); BASO % 1 % (0-3); EOS # 0.3 x10^3/uL (0.0-0.7); EOS % 2 % (0-3); HEMATOCRIT 35.8 % (36.0-47.0); HEMOGLOBIN 11.8 g/dL (12.0-15.5); LYMPH # 2.2 x10^3/uL (1.0-4.8); LYMPH % 19 % (24-48); MEAN CORPUSCULAR HEMOGLOBIN 30 pg (25-35); MEAN CORPUSCULAR HGB CONC 33 g/dL (31-37); MEAN CORPUSCULAR VOLUME 90 fL (79-100); MONO # 1.2 x10^3/uL (0.0-1.1); MONO % 10 % (0-9); NEUT # 7.9 x10^3/uL (1.8-7.7); NEUT % 68 % (31-73); PLATELET COUNT 416 x10^3/uL (140-400); RED BLOOD COUNT 3.96 x10^6/uL (3.50-5.40); RED CELL DISTRIBUTION WIDTH 14.5 % (11.5-14.5); WHITE BLOOD COUNT 11.7 x10^3/uL (4.0-11.0)
[2019-01-20 05:57] LABS: CALCIUM 8.2 mg/dL (8.5-10.1); CREATININE 0.8 mg/dL (0.6-1.0); GFR 70.3; POTASSIUM 3.8 mmol/L (3.5-5.1)
[2019-01-20 07:35] VITALS: BP 117/53
--- NOTE | 2019-01-20 08:44 | NUR ---
SW notified pt is currently on Service on [employer], phone: [phone], fax: [phone]. Chart reviewed. Pt lives at home with spouse. SW will continue to follow.
[2019-01-20] MEDS: PANTOPRAZOLE 40 MG TABLET.DR. PO SCH (08:48)
[2019-01-20] MEDS: buPROPion SR 150 MG TABLET.SA PO SCH (08:48)
[2019-01-20] MEDS: METOPROLOL TART IMMED RELEASE 25 MG TABLET. PO SCH (08:49)
--- NOTE | 2019-01-20 09:52 | PDOC ---
PROGRESS NOTES Subjective Subjective pt feels better ,want to go home Objective Objective Vital Signs Date Time Temp Pulse Resp B/P (MAP) Pulse Ox O2 Delivery O2 Flow Rate FiO2 01/20/19 08:49 82 117/53 01/20/19 07:35 97.5 18 95 Room Air 97.5 Intake and Output 01/20/19 07:00 Intake Total 1100 ml Output Total 900 ml Balance 200 ml Intake Oral 1100 ml Output Urine Total 900 ml # Voids 3 Physical Exam Abdomen: Soft Heart: Regular rate, Normal S1, Normal S2 Extremities: No clubbing General: Alert Lungs: Clear to auscultation MUSCULOSKELETAL: Osteoarthritic changes both hands, Other Neuro: Normal speech Skin: No breakdown COMMENT rt leg less swollen today Assessment Assessment FINAL IMPRESSION: 1. Extensive DVT, right leg. 2. Recent fall, injury to the right knee. 3. History of knee replacement 10 years ago. 4. History of previous DVTs, history of IVC filter. 5. Hypertension. 6. Depression. 7. Obesity. PLAN:d/c home on coumadin 5 mg d/c iv heparin drip.Bridge with lovenox pain control. labs reviewed ok. inr 1.7. pt says want t go on coumadin, newer oral anticoagulants too expensive for her,she cannot afford the knowles Comment Review of Relevant I have reviewed the following items keny (where applicable) has been applied. Labs Laboratory Tests Test 01/19/19 10:00 01/19/19 20:50 01/20/19 04:22 Prothrombin Time 20.3 SEC (11.7-14.0) 20.0 SEC (11.7-14.0) Prothromb Time International Ratio 1.8 (0.8-1.1) 1.7 (0.8-1.1) Heparin Anti-Xa Act, Unfractionated 0.26 IU/mL (0.30-0.70) < 0.10 IU/mL (0.30-0.70) White Blood Count 11.7 x10^3/uL (4.0-11.0) Red Blood Count 3.96 x10^6/uL (3.50-5.40) Hemoglobin 11.8 g/dL (12.0-15.5) Hematocrit 35.8 % (36.0-47.0) Mean Corpuscular Volume 90 fL (79-100) Mean Corpuscular Hemoglobin 30 pg (25-35) Mean Corpuscular Hemoglobin Concent 33 g/dL (31-37) Red Cell Distribution Width 14.5 % (11.5-14.5) Platelet Count 416 x10^3/uL (140-400) Neutrophils (%) (Auto) 68 % (31-73) Lymphocytes (%) (Auto) 19 % (24-48) Monocytes (%) (Auto) 10 % (0-9) Eosinophils (%) (Auto) 2 % (0-3) Basophils (%) (Auto) 1 % (0-3) Neutrophils # (Auto) 7.9 x10^3/uL (1.8-7.7) Lymphocytes # (Auto) 2.2 x10^3/uL (1.0-4.8) Monocytes # (Auto) 1.2 x10^3/uL (0.0-1.1) Eosinophils # (Auto) 0.3 x10^3/uL (0.0-0.7) Basophils # (Auto) 0.1 x10^3/uL (0.0-0.2) Sodium Level 140 mmol/L (136-145) Potassium Level 3.8 mmol/L (3.5-5.1) Chloride Level 105 mmol/L (98-107) Carbon Dioxide Level 26 mmol/L (21-32) Anion Gap 9 (6-14) Blood Urea Nitrogen 7 mg/dL (7-20) Creatinine 0.8 mg/dL (0.6-1.0) Estimated GFR (Cockcroft-Gault) 70.3 Glucose Level 89 mg/dL (70-99) Calcium Level 8.2 mg/dL (8.5-10.1) Medications Current Medications Enoxaparin Sodium (Lovenox 120mg Syringe) 120 mg 1X ONCE SQ ; Start 01/20/19 at 09:15; Stop 01/20/19 at 09:21; Status DC Heparin Sodium (Porcine) (Heparin Sodium) 1,850 unit PRN Q6HRS PRN IV FOR UFH LEVEL 0.2 - 0.29; Start 01/19/19 at 13:00; Stop 01/19/19 at 17:48; Status DC Heparin Sodium (Porcine) (Heparin Sodium) 3,700 unit PRN Q6HRS PRN IV FOR UFH LEVEL LESS THAN 0.2; Start 01/19/19 at 13:00; Stop 01/19/19 at 17:48; Status DC Heparin Sodium/ Dextrose 500 ml @ 0 mls/hr CONT IV ; Start 01/19/19 at 13:00; Status UNV Rivaroxaban (Xarelto) 15 mg BIDWMEALS PO ; Start 01/19/19 at 17:00; Stop 01/19/19 at 13:05; Status DC Warfarin Sodium (Coumadin Per Pharmacy) 1 each PRN DAILY PRN MC SEE COMMENTS; Start 01/19/19 at 13:15; Status UNV Warfarin Sodium (Coumadin) 3 mg 1X WARF ONCE PO Last administered on 01/19/19at 17:21; Start 01/19/19 at 16:00; Stop 01/19/19 at 16:01; Status DC Vitals/I & O Vital Sign - Last 24 Hours 01/19/19 01/19/19 01/19/19 01/19/19 10:39 14:40 19:05 20:10 Temp 98.0 98.0 98.7 98.0 98.0 98.7 Pulse 70 74 77 Resp 19 19 18 B/P (MAP) 127/62 (83) 125/60 (81) 107/59 (75) Pulse Ox 96 96 96 O2 Delivery Room Air Room Air Room Air Room Air 01/19/19 01/19/19 01/20/19 01/20/19 21:12 23:05 03:05 07:35 Temp 99.5 98.4 97.5 99.5 98.4 97.5 Pulse 77 71 74 82 Resp 18 B/P (MAP) 107/59 112/63 (79) 121/55 (77) 117/53 (74) Pulse Ox 98 97 95 O2 Delivery Room Air Room Air Room Air 01/20/19 08:49 Pulse 82 B/P (MAP) 117/53 Intake and Output 01/19/19 01/19/19 01/20/19 15:00 23:00 07:00 Intake Total 600 ml 300 ml 200 ml Output Total 400 ml 500 ml Balance 200 ml -200 ml 200 ml EVERTON LAUREN MD Jan 20, 2019 09:52
[2019-01-20 11:37] VITALS: BP 121/62
--- NOTE | 2019-01-20 12:30 | NUR ---
Discharge Note: PRINCE GARZON [address] [place] [address] Discharge instructions and discharge home medications reviewed with Patient and a copy given. All questions have been answered and understanding verbalized. The following instructions and handouts were given: F/U with PCP within one week. Get labs drawn as scheduled. Discontinued lines and drains: Peripheral IV intact. Patient discharged to Home or Self Care with Family Member via Wheelchair.
--- NOTE | 2019-01-20 13:39 | NUR ---
AARON phoned and faxed resumption orders to [facility]. Physician notified.
--- NOTE | 2019-01-21 15:52 | PDOC ---
Provider Note Provider Note Discharge summary dictated,#[id number]. EVERTON LAUREN MD Jan 21, 2019 15:52
--- NOTE | 2019-01-21 22:19 | DS ---
DATE OF DISCHARGE: 01/20/2019 REASON FOR ADMISSION TO THE HOSPITAL: Extensive right lower leg DVT. CONSULTATIONS: None. PROCEDURES: None. HOSPITAL COURSE: The patient is a 73-year-old female who fell a month ago, injured right knee, nothing was broken. She had a previous knee replacement, almost 10 years ago. The patient was having pain with swelling in the right leg, got progressively worse, had a venous Doppler outpatient that shows extensive DVT, right leg. The patient was admitted to the hospital, was started on heparin drip and started on Coumadin and the patient was discharged home after that. The patient has a history of previous DVTs in the leg, has a history of IVC filter. She also was on Coumadin for some time, which was stopped in the past. FINAL DIAGNOSES: 1. Recurrent deep venous thrombosis, right leg. 2. History of knee injury a month ago. 3. History of knee replacement 10 years ago, right. 4. History of IVC filter. 5. Depression. 6. Obesity. DISPOSITION: Home. Continue Coumadin. INR check once a week. EVERTON LAUREN MD DR: TAMY/wilian JOB#: [id number] / [id number] NICKY Edwards
== END 2019-01-20 12:30 | disposition home or self-care (01) | DRG 299 ==
LOC: 6 SOUTH 14:57
PROVIDERS: ADMIT Internal Medicine; ATTEND Internal Medicine
DX: I82.401 Acute embolism and thrombosis of unspecified deep veins of right lower extremity (principal); E43 Unspecified severe protein-calorie malnutrition; Z68.41 Body mass index [BMI] 40.0-44.9, adult; E66.9 Obesity, unspecified; Z96.651 Presence of right artificial knee joint; E78.5 Hyperlipidemia, unspecified; Z96.611 Presence of right artificial shoulder joint; F32.9 Major depressive disorder, single episode, unspecified; I10 Essential (primary) hypertension; Z86.718 Personal history of other venous thrombosis and embolism; Z95.828 Presence of other vascular implants and grafts; Z88.5 Allergy status to narcotic agent; Z88.0 Allergy status to penicillin; Z88.8 Allergy status to other drugs, medicaments and biological substances; Z83.3 Family history of diabetes mellitus; Z87.891 Personal history of nicotine dependence; Z90.81 Acquired absence of spleen
CPT/HCPCS: 36415; 71045; 80048; 80053; 85025; 85520; 85610; 85730; 93005; J1650; G0378

== ENCOUNTER → 2019-10-27 | Outpatient (CLI) | payer MEDICARE, OTHER ==
[~2019-10-27] MED LIST changes: +GADOTERATE 7.5 MMOL/15ML VIAL. IVP ONE; +LIDO1ADH78 TP; +ONDA-84 PO; -ONDA4TAB11 PO; +WARF5TAB2 PO
[2019-10-27 09:01] LABS: CREATININE 1.1 mg/dL (0.6-1.0); GFR 48.7
--- NOTE | 2019-10-28 08:32 | RAD ---
MRI abdomen with and without IV contrast. INDICATION: Abdominal mass, nonhealing wound. History of absorbable mesh hernia repair 2 years ago. COMPARISON: Abdomen pelvis CT with IV contrast 07/04/2018. TECHNIQUE: Multiplanar multisequence MR imaging of the abdomen was performed , including dynamic postcontrast imaging following 22 mL IV Dotarem administration. FINDINGS: Ventral abdominal wall notable for a midline vertical incision with interval decrease in size of the fluid collection deep to the umbilicus. However, there remains a horizontally oriented rim-enhancing fluid collection with restricted diffusion along the course of the ventral hernia mesh repair asymmetric to the right, indicating complex fluid, potentially abscess. The fluid is loculated, with one subcollection measuring 4.3 x 0.7 x 0.4 cm superior to the right of the umbilicus, and 2 adjacent collections of the approximate level of the umbilicus on the right measuring 1.7 x 0.8 x 1.5 cm and on the left measuring 1.9 x 0.5 x 0.8 cm. Multiple simple hepatic cysts are present in both the left and right hepatic lobes, largest measuring 4.2 cm in hepatic segment 3. Gallbladder surgically absent. There is mild postcholecystectomy biliary distention up to 1 cm. No choledocholithiasis is identified. 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 The adrenal glands and kidneys are unremarkable. There is no evidence of bowel obstruction or acute inflammation. No abdominal adenopathy. No aneurysm in the abdominal aorta. An IVC filter is present. The included lung bases show no focal consolidation of the lungs. Bones show degenerative changes in the spine. IMPRESSION: Findings suspicious for an inflammatory postoperative fluid collection, potentially abscess, along the site of a previous ventral hernia repair with multiple loculations. No soft tissue mass identified. Electronically signed by: Zara Webb MD (10/28/2019 8:29 AM) [id number]
== END | disposition home or self-care (01) ==
LOC: MRI 08:47
PROVIDERS: ATTEND Specialist
DX: R19.00 Intra-abdominal and pelvic swelling, mass and lump, unspecified site (principal); K76.89 Other specified diseases of liver; M47.9 Spondylosis, unspecified; Z90.81 Acquired absence of spleen; Z90.49 Acquired absence of other specified parts of digestive tract
CPT/HCPCS: 36415; 74183; 82565; 84520; A9575

== ENCOUNTER 2019-10-30 07:07 | Emergency (ER) | payer MEDICARE, OTHER ==
[~2019-10-30] VITALS: Ht 170.2 cm; Wt 113.6 kg
[~2019-10-30 07:07] MED LIST changes: -GADOTERATE 7.5 MMOL/15ML VIAL. IVP ONE; -LIDO1ADH78 TP
--- NOTE | 2019-10-30 07:37 | PHYS DOC ---
Past Medical History Past Medical History: High Cholesterol, Other Additional Past Medical Histor: DVT, PE on chronic coumadin, tachycardia Past Surgical History: Knee Replacement, Other Additional Past Surgical Histo: spleenectomy, 2 hernia repairs and part of stomach removed, IVC filter, rabia Smoking Status: Never Smoker Alcohol Use: None Drug Use: None General Adult EDM: Chief Complaint: BACK PAIN - NO INJURY HPI: HPI: 73-year-old female past medical history significant for recurrent lower extremity DVTs on Coumadin with an IVC filter, hypertension, GERD, depression and obesity, presents to the ED with complaints of right low back pain, sharp, nonradiating, that started yesterday after patient was leaning forward and getting out of her recliner. Patient states twisting her torso and raising her right leg makes the pain worse. Denies any falls or trauma. Reports she last fell 6 months ago. EMR was reviewed-MRI abd/pelvis performed 10/26 due to chronically draining ventral hernia repair wounds, imaging concerning for potential loculated abscess, normal aorta w/degenerative changes of the spine. Pt reports fluid draining is clear and non bloody. Pt is not an IVDU, alcoholic, diabetic, immunocompromised, with h/o incarceration or other risk factors for epidural abscess. Pt reports she had a ventral mesh herniorrhaphy 12/2017, complicated with chronic drainage from 2 incision sites that never healed. ROS: Denies any associated fever, chills, sore throat, cough, neck pain, radiculopathy, headache, chest pain or pressure, dyspnea, hemoptysis, abdominal pain, dysuria, hematuria, flank pain, saddle anesthesia, urinary bowel retention or incontinence. Allergies: Allergies: Allergies Coded Allergies Type Severity Reaction Last Updated Verified Penicillins Allergy Intermediate Hives 12/31/17 Yes dexamethasone Allergy Intermediate 12/31/17 Yes diazepam Allergy Intermediate 12/31/17 Yes meperidine Allergy Intermediate Hives 12/31/17 Yes morphine Allergy Intermediate Nausea and Vomiting 12/31/17 Yes Physical Exam: PE: Constitutional: Well developed, well nourished, no acute distress, non-toxic appearance. [] obese HENT: Normocephalic, atraumatic, bilateral external ears normal, oropharynx moist, no oral exudates, nose normal. [] Eyes: EOMI, conjunctiva normal, no discharge. [] Neck: Normal range of motion, no tenderness, supple, no stridor. [] Cardiovascular:Heart rate regular rhythm, no murmur [] Lungs & Thorax: Bilateral breath sounds clear to auscultation [] Abdomen: Bowel sounds normal, soft, no tenderness, no masses, no pulsatile masses. [] Skin: Warm, dry, no erythema, no rash. [] Back: No tenderness, no CVA tenderness. [] no midline ttp, +right SI joint ttp- reproduced w/R straight leg, Extremities: No tenderness, no cyanosis, no clubbing, ROM intact, no edema. [] Neurologic: Alert and oriented X 3, normal motor function, normal sensory function, no focal deficits noted. [] Psychologic: Affect normal, judgement normal, mood normal. [] EKG: EKG: [] Radiology/Procedures: Radiology/Procedures: IMAGING REPORT Signed PATIENT: PRINCE GARZON ACCOUNT: [id number] : 1945 LOCATION: ER AGE: 73 SEX: F EXAM STATUS: REG ER ORD. PHYSICIAN: CHAPARRO SLOAN DO REASON: right si PROCEDURE: CT PELVIS WO CONTRAST Study: CT pelvis without contrast INDICATION: Right-sided pain. COMPARISON: Correlation is made to the MRI of the abdomen from 10/27/2019; MRI of the pelvis 07/07/2019; CT abdomen/pelvis 07/04/2018 TECHNIQUE: Axial CT imaging of the pelvis performed without the use of intravenous contrast. Coronal and sagittal reformats were obtained. One or more of the following individualized dose reduction techniques were utilized for this examination: 1. Automated exposure control 2. Adjustment of the mA and/or kV according to patient size 3. Use of iterative reconstruction technique. FINDINGS: Degraded study on account of patient body habitus. Portions of the body wall soft tissues are excluded from [id number]. Bones: Taking into consideration osteopenia, no acute fracture. Interval progression of superior endplate concavity at L4 but this does not appear acute and there is a superimposed Schmorl's node. Redemonstrated chronic bilateral pars defects at L5 with resultant grade 1 anterolisthesis of L5 on S1. Lower lumbar facet degeneration. No CT evidence for a sacral insufficiency fracture. No severe arthrosis of the hips. Moderate pubic symphysis arthrosis. Soft tissues: Partially imaged IVC filter. Sequela of ventral hernia repair is partially included in the [id number]. As seen on the recent MRI, diastases of the ventral abdominal wall at the site of repair which is unchanged from the recent MRI but has progressed since 07/04/2018 with extension of small bowel through the defect. Partially imaged soft tissue fullness along the ventral margin of the region of diastases, image 1 series 2, corresponds to the fluid collections better characterized on the recent MRI. Taking into consideration differences in technique there is no significant interval change. Distended urinary bladder. Colonic diverticulosis. IMPRESSION: 1. Taking into consideration osteopenia, no acute fracture seen throughout the pelvis or involving the lower lumbar spine. No CT evidence for a sacral insufficiency fracture. 2. Partially included in the [id number] is the sequela of prior ventral hernia repair with recurrent midline diastases and extension of small bowel through the defect. Taking into consideration differences in technique, no significant change relative to 10/27/2019. The postoperative fluid collections as described on the recent MRI are not well characterized on this unenhanced study. Electronically signed by: SHAUN ALCAZAR MD (10/30/2019 8:28 AM) [id number] DICTATED and SIGNED BY: SHAUN ALCAZAR MD DATE: 10/30/19827 Impression: Impression: Concern for atraumatic right SI back pain in an obese female, ddx includes ddd, msk pain. Life threatening processes considered (spinal cord injury, epidural abscess, sepsis, meningitis, AAA, obstructive uropathy etc), low suspicion given hx/pe. Did discuss MRI findings with Dr. Brandon-reports these are chronic serous fluid collections that he has attempted drainage multiple times and fluid keeps re-accumulating, does not recommend IV abx and admission for this. INR 2.9, therapeutic. Labs otherwise wnl. UA w/no hematuria, rbcs, nitrites or LEs. Pt with tylenol #3 at home. Relief with lido patch in ed-will prescribe more. Will avoid nsaids due to being on coumadin. RICE instructions given. Encouraged PMD follow-up in the next 48 hours. May benefit from further outpt imaging if sxs do not improve. All of patient and her 's questions were answered and she was stable at time of discharge. Course & Med Decision Making: Course & Med Decision Making Pertinent Labs and Imaging studies reviewed. (See chart for details) [] Dragon Disclaimer: Dragon Disclaimer: This electronic medical record was generated, in whole or in part, using a voice recognition dictation system. Departure Departure Impression: Primary Impression: SI (sacroiliac) pain Additional Impression: Long-term (current) use of anticoagulants, INR goal 2.0-3.0 Disposition: 01 HOME, SELF-CARE Condition: STABLE Referrals: NICKY BREAUX (PCP) Patient Instructions: Back Exercises, Sacroiliac Joint Dysfunction, Warfarin, Questions and Answers Scripts Lidocaine (Teno Brodie) 1 Each Adh..patch 1 EACH TP Q12HR for 4 Days, #8 PATCH Prov: CHAPARRO SLOAN DO 10/30/19 Justicifation of Admission Dx: Justifications for Admission: Justification of Admission Dx: N/A CHAPARRO SLOAN DO Oct 30, 2019 07:36
[2019-10-30 07:38] LABS: BASO % 0 % (0-3); EOS # 0.2 x10^3/uL (0.0-0.7); EOS % 3 % (0-3); HEMATOCRIT 44.6 % (36.0-47.0); LYMPH # 2.9 x10^3/uL (1.0-4.8); LYMPH % 37 % (24-48); MEAN CORPUSCULAR HEMOGLOBIN 30 pg (25-35); MEAN CORPUSCULAR HGB CONC 34 g/dL (31-37); MEAN CORPUSCULAR VOLUME 89 fL (79-100); MONO # 0.5 x10^3/uL (0.0-1.1); MONO % 6 % (0-9); NEUT # 4.1 x10^3/uL (1.8-7.7); NEUT % 53 % (31-73); PLATELET COUNT 386 x10^3/uL (140-400); RED BLOOD COUNT 5.03 x10^6/uL (3.50-5.40); RED CELL DISTRIBUTION WIDTH 15.9 % (11.5-14.5); WHITE BLOOD COUNT 7.7 x10^3/uL (4.0-11.0)
[2019-10-30 07:47] LABS: CALCIUM 8.4 mg/dL (8.5-10.1); GFR 54.3; POTASSIUM 4.1 mmol/L (3.5-5.1)
[2019-10-30 07:48] LABS: PROTHROMBIN TIME PATIENT 30.3 SEC (11.7-14.0)
[2019-10-30 07:53] LABS: ALBUMIN 2.8 g/dL (3.4-5.0); ALBUMIN/GLOBULIN RATIO 0.7 (1.0-1.7); TOTAL BILIRUBIN 0.3 mg/dL (0.2-1.0); TOTAL PROTEIN 7.1 g/dL (6.4-8.2)
[2019-10-30 08:27] LABS: BILIRUBIN,URINE NEGATIVE (NEG); CLARITY,URINE CLEAR; COLOR,URINE YELLOW; NITRITE,URINE NEGATIVE (NEG); PH,URINE 7.5 (<5.0-8.0); PROTEIN,URINE NEGATIVE (NEG-TRACE); UROBILINOGEN,URINE 0.2 mg/dL (0.2 mg/dL)
--- NOTE | 2019-10-30 08:31 | RAD ---
Study: CT pelvis without contrast INDICATION: Right-sided pain. COMPARISON: Correlation is made to the MRI of the abdomen from 10/27/2019; MRI of the pelvis 07/07/2019; CT abdomen/pelvis 07/04/2018 TECHNIQUE: Axial CT imaging of the pelvis performed without the use of intravenous contrast. Coronal and sagittal reformats were obtained. One or more of the following individualized dose reduction techniques were utilized for this examination: 1. Automated exposure control 2. Adjustment of the mA and/or kV according to patient size 3. Use of iterative reconstruction technique. FINDINGS: Degraded study on account of patient body habitus. Portions of the body wall soft tissues are excluded from [id number]. Bones: Taking into consideration osteopenia, no acute fracture. Interval progression of superior endplate concavity at L4 but this does not appear acute and there is a superimposed Schmorl's node. Redemonstrated chronic bilateral pars defects at L5 with resultant grade 1 anterolisthesis of L5 on S1. Lower lumbar facet degeneration. No CT evidence for a sacral insufficiency fracture. No severe arthrosis of the hips. Moderate pubic symphysis arthrosis. Soft tissues: Partially imaged IVC filter. Sequela of ventral hernia repair is partially included in the [id number]. As seen on the recent MRI, diastases of the ventral abdominal wall at the site of repair which is unchanged from the recent MRI but has progressed since 07/04/2018 with extension of small bowel through the defect. Partially imaged soft tissue fullness along the ventral margin of the region of diastases, image 1 series 2, corresponds to the fluid collections better characterized on the recent MRI. Taking into consideration differences in technique there is no significant interval change. Distended urinary bladder. Colonic diverticulosis. IMPRESSION: 1. Taking into consideration osteopenia, no acute fracture seen throughout the pelvis or involving the lower lumbar spine. No CT evidence for a sacral insufficiency fracture. 2. Partially included in the [id number] is the sequela of prior ventral hernia repair with recurrent midline diastases and extension of small bowel through the defect. Taking into consideration differences in technique, no significant change relative to 10/27/2019. The postoperative fluid collections as described on the recent MRI are not well characterized on this unenhanced study. Electronically signed by: SHAUN ALCAZAR MD (10/30/2019 8:28 AM) [id number]
[2019-10-30 08:34] LABS: PLT ESTIMATE ADEQUATE (ADEQUATE)
[2019-10-30 08:37] LABS: AMORPHOUS SEDIMENT,UR PRESENT /HPF; BACTERIA,URINE FEW /HPF (0-FEW); RBC,URINE 0 /HPF (0-2); SQUAMOUS EPITHELIAL CELL,UR MOD /LPF
[2019-10-30 08:38] LABS: HYALINE CASTS, URINE FEW /HPF
[2019-10-30] MEDS ORDERED: LIDOCAINE (700MG/PATCH) PATCH. TD SCH (09:00)
[2019-10-30 09:09] VITALS: BP 134/74
[2019-10-30] MEDS ORDERED: LIDO1ADH78 TP (09:12)
[2019-10-30] MEDS ORDERED: PATCH REMOVAL. MC SCH (21:00)
== END 2019-10-30 09:20 | disposition home or self-care (01) ==
LOC: ER 07:07
DX: M53.3 Sacrococcygeal disorders, not elsewhere classified (principal); Z79.01 Long term (current) use of anticoagulants; E78.00 Pure hypercholesterolemia, unspecified; I10 Essential (primary) hypertension; K21.9 Gastro-esophageal reflux disease without esophagitis; Z86.718 Personal history of other venous thrombosis and embolism; Z86.711 Personal history of pulmonary embolism; Z98.890 Other specified postprocedural states; Z88.0 Allergy status to penicillin; Z88.5 Allergy status to narcotic agent; Z88.1 Allergy status to other antibiotic agents; Z88.8 Allergy status to other drugs, medicaments and biological substances
CPT/HCPCS: 36415; 72192; 80053; 81001; 82550; 85025; 85610; 85730; 99284-25

== ENCOUNTER → 2020-01-16 | Outpatient (CLI) | payer MEDICARE, OTHER ==
[~2020-01-16] MED LIST changes: -AMIO200T4 PO; +AMIO200T6 PO; +LIDO1ADH78 TP
== END ==
LOC: LAB 08:40
PROVIDERS: ATTEND Specialist
DX: Z01.812 Encounter for preprocedural laboratory examination (principal); Z20.828 Contact with and (suspected) exposure to other viral communicable diseases; R10.9 Unspecified abdominal pain
CPT/HCPCS: U0003-CS

== ENCOUNTER → 2020-01-20 | Day surgery (SDC) | payer MEDICARE, OTHER ==
[~2020-01-20] MED LIST changes: -BUPR150T11; +BUPR150T11 PO; +HYDR-2761 PO; +LIDOCAINE 1%/EPI 1:100,000 20 ML VIAL. ONE
--- NOTE | 2020-01-20 09:21 | PDOC ---
SURGICAL PROGRESS NOTE DATE: 01/20/20 TIME: 09:19 she has a draining are of the right epigastrium.Sterile cultures and stains were done of the fluid collections per Q-tips and the culture containers. Dressings applied. Justicifation of Admission Dx: Justifications for Admission: Justification of Admission Dx: N/A JASPER PEREZ MD Jan 20, 2020 09:21
--- NOTE | 2020-02-17 15:44 | HP ---
ADMIT DATE: 01/20/2020 HISTORY OF PRESENT ILLNESS: The patient has had a long history of abdominal surgeries and the last one was a large ventral hernia that was repaired. She has had a number of problems from an accident and resections of organs. She has had now for about 2 years, draining sinus from the upper abdomen. We think this may be related to some type of sinus tract, but now is draining more continuously. She has to change it ____ has a small mass there. This has been going on for about 3 weeks. She does have family problems and has a who is going to have surgery. So the surgery would have to be delayed just a little bit. She does have this mass is not particularly painful as it is draining a fair amount. PHYSICAL EXAMINATION: GENERAL: Shows an alert female in no acute distress. HEENT: Grossly head, eyes, ears, nose and throat were normal. CHEST AND HEART: Unremarkable. ABDOMEN: Had the small mass associated with the draining sinus, which is at the upper abdomen just to the right of the midline. The mass goes laterally to the old what looks like subcostal incision. Otherwise, there is no tenderness and no real redness. There is a small sinus tract, which has been open for about a year or more. It does drain. There is a kind of cloudy reddish serous fluid. It is not foul smelling. Extremities: Grossly normal. ALLERGIES: THE PATIENT IS ALLERGIC TO PENICILLIN AND DEMEROL. REVIEW OF SYSTEMS: As basically negative as she appears to be somewhat more tired than normal. She otherwise is doing relatively well. FAMILY HISTORY: Noncontributory. IMPRESSION: 1. She has a sinus tract and a mass of the abdominal wall that is draining serosanguineous fluid. 2. Obesity. JASPER PEREZ MD DR: CARINE/wilian JOB#: [id number] / [id number]
== END ==
LOC: SURG 08:29
PROVIDERS: ATTEND Specialist
DX: Z01.812 Encounter for preprocedural laboratory examination (principal); L02.211 Cutaneous abscess of abdominal wall; Z20.828 Contact with and (suspected) exposure to other viral communicable diseases; B95.61 Methicillin susceptible Staphylococcus aureus infection as the cause of diseases classified elsewhere
CPT/HCPCS: 87071; 87075; 87077; 87102; 87116; 87186; J3490

== ENCOUNTER → 2020-02-20 | Outpatient (CLI) | payer MEDICARE, OTHER ==
[~2020-02-20] MED LIST changes: -LIDOCAINE 1%/EPI 1:100,000 20 ML VIAL. ONE
== END ==
LOC: LAB 13:36
PROVIDERS: ATTEND Specialist
DX: Z01.812 Encounter for preprocedural laboratory examination (principal); R19.00 Intra-abdominal and pelvic swelling, mass and lump, unspecified site; Z20.828 Contact with and (suspected) exposure to other viral communicable diseases
CPT/HCPCS: U0003

== ENCOUNTER 2020-02-25 10:09 | Day surgery (SDC) | payer MEDICARE, OTHER ==
[~2020-02-25] VITALS: Ht 170.2 cm; Wt 113.4 kg
[~2020-02-25 10:09] MED LIST changes: +CLINDAMYCIN 900MG PREMIX 50 ML IV PRN; -HYDR-2761 PO; +HYDROmorphone 2 MG/ML VIAL IV PRN; +IV RINGERS,LACTATED 1000ML 1,000 ML IV SCH; +MORPHINE SULFATE 2 MG/ML VIAL. IV PRN; +ONDANSETRON PF 4 MG/2 ML VIAL. IV PRN; +PROCHLORPERAZINE 10 MG/2 ML VIAL. IV PRN; +fentaNYL PF VIAL 100 MCG/2 ML VIAL IV PRN
[2020-02-25] MEDS ORDERED: fentaNYL PF VIAL 100 MCG/2 ML VIAL ONE ×2 (10:22→13:56)
[2020-02-25] MEDS ORDERED: LIDOCAINE 2% PF 5 ML VIAL. ONE (10:22)
[2020-02-25] MEDS ORDERED: PROPOFOL 10 MG/ML (20ML) VIAL. IV ONE (10:22)
[2020-02-25 11:32] LABS: CALCIUM 8.7 mg/dL (8.5-10.1); GFR 54.2; POTASSIUM 4.4 mmol/L (3.5-5.1)
[2020-02-25 11:34] LABS: BASO # 0.1 x10^3/uL (0.0-0.2); BASO % 1 % (0-3); EOS # 0.2 x10^3/uL (0.0-0.7); EOS % 2 % (0-3); HEMATOCRIT 41.8 % (36.0-47.0); LYMPH # 2.8 x10^3/uL (1.0-4.8); LYMPH % 34 % (24-48); MEAN CORPUSCULAR HEMOGLOBIN 30 pg (25-35); MEAN CORPUSCULAR HGB CONC 34 g/dL (31-37); MEAN CORPUSCULAR VOLUME 90 fL (79-100); MONO # 0.5 x10^3/uL (0.0-1.1); MONO % 7 % (0-9); NEUT # 4.6 x10^3/uL (1.8-7.7); NEUT % 57 % (31-73); PLATELET COUNT 352 x10^3/uL (140-400); RED BLOOD COUNT 4.65 x10^6/uL (3.50-5.40); RED CELL DISTRIBUTION WIDTH 14.9 % (11.5-14.5); WHITE BLOOD COUNT 8.1 x10^3/uL (4.0-11.0)
[2020-02-25 11:38] LABS: ALBUMIN/GLOBULIN RATIO 0.8 (1.0-1.7); TOTAL BILIRUBIN 0.6 mg/dL (0.2-1.0); TOTAL PROTEIN 6.9 g/dL (6.4-8.2)
[2020-02-25 11:46] LABS: PROTHROMBIN TIME PATIENT 15.2 SEC (11.7-14.0)
--- NOTE | 2020-02-25 11:55 | PDOC ---
SURGICAL PROGRESS NOTE DATE: 02/25/20 TIME: 11:54 No change in dictated H&P. Vital Signs Vital Signs Date Time Temp Pulse Resp B/P (MAP) Pulse Ox O2 Delivery O2 Flow Rate FiO2 02/25/20 10:51 97.2 54 20 114/60 97 Room Air 97.2 Labs Laboratory Tests Test 02/25/20 10:45 White Blood Count 8.1 x10^3/uL (4.0-11.0) Red Blood Count 4.65 x10^6/uL (3.50-5.40) Hemoglobin 14.0 g/dL (12.0-15.5) Hematocrit 41.8 % (36.0-47.0) Mean Corpuscular Volume 90 fL (79-100) Mean Corpuscular Hemoglobin 30 pg (25-35) Mean Corpuscular Hemoglobin Concent 34 g/dL (31-37) Red Cell Distribution Width 14.9 % (11.5-14.5) Platelet Count 352 x10^3/uL (140-400) Neutrophils (%) (Auto) 57 % (31-73) Lymphocytes (%) (Auto) 34 % (24-48) Monocytes (%) (Auto) 7 % (0-9) Eosinophils (%) (Auto) 2 % (0-3) Basophils (%) (Auto) 1 % (0-3) Neutrophils # (Auto) 4.6 x10^3/uL (1.8-7.7) Lymphocytes # (Auto) 2.8 x10^3/uL (1.0-4.8) Monocytes # (Auto) 0.5 x10^3/uL (0.0-1.1) Eosinophils # (Auto) 0.2 x10^3/uL (0.0-0.7) Basophils # (Auto) 0.1 x10^3/uL (0.0-0.2) Prothrombin Time 15.2 SEC (11.7-14.0) Prothromb Time International Ratio 1.2 (0.8-1.1) Sodium Level 139 mmol/L (136-145) Potassium Level 4.4 mmol/L (3.5-5.1) Chloride Level 104 mmol/L (98-107) Carbon Dioxide Level 26 mmol/L (21-32) Anion Gap 9 (6-14) Blood Urea Nitrogen 14 mg/dL (7-20) Creatinine 1.0 mg/dL (0.6-1.0) Estimated GFR (Cockcroft-Gault) 54.2 BUN/Creatinine Ratio 14 (6-20) Glucose Level 100 mg/dL (70-99) Calcium Level 8.7 mg/dL (8.5-10.1) Total Bilirubin 0.6 mg/dL (0.2-1.0) Aspartate Amino Transf (AST/SGOT) 24 U/L (15-37) Alanine Aminotransferase (ALT/SGPT) 17 U/L (14-59) Alkaline Phosphatase 113 U/L (46-116) Total Protein 6.9 g/dL (6.4-8.2) Albumin 3.0 g/dL (3.4-5.0) Albumin/Globulin Ratio 0.8 (1.0-1.7) Laboratory Tests Test 02/25/20 10:45 White Blood Count 8.1 x10^3/uL (4.0-11.0) Red Blood Count 4.65 x10^6/uL (3.50-5.40) Hemoglobin 14.0 g/dL (12.0-15.5) Hematocrit 41.8 % (36.0-47.0) Mean Corpuscular Volume 90 fL (79-100) Mean Corpuscular Hemoglobin 30 pg (25-35) Mean Corpuscular Hemoglobin Concent 34 g/dL (31-37) Red Cell Distribution Width 14.9 % (11.5-14.5) Platelet Count 352 x10^3/uL (140-400) Neutrophils (%) (Auto) 57 % (31-73) Lymphocytes (%) (Auto) 34 % (24-48) Monocytes (%) (Auto) 7 % (0-9) Eosinophils (%) (Auto) 2 % (0-3) Basophils (%) (Auto) 1 % (0-3) Neutrophils # (Auto) 4.6 x10^3/uL (1.8-7.7) Lymphocytes # (Auto) 2.8 x10^3/uL (1.0-4.8) Monocytes # (Auto) 0.5 x10^3/uL (0.0-1.1) Eosinophils # (Auto) 0.2 x10^3/uL (0.0-0.7) Basophils # (Auto) 0.1 x10^3/uL (0.0-0.2) Prothrombin Time 15.2 SEC (11.7-14.0) Prothromb Time International Ratio 1.2 (0.8-1.1) Sodium Level 139 mmol/L (136-145) Potassium Level 4.4 mmol/L (3.5-5.1) Chloride Level 104 mmol/L (98-107) Carbon Dioxide Level 26 mmol/L (21-32) Anion Gap 9 (6-14) Blood Urea Nitrogen 14 mg/dL (7-20) Creatinine 1.0 mg/dL (0.6-1.0) Estimated GFR (Cockcroft-Gault) 54.2 BUN/Creatinine Ratio 14 (6-20) Glucose Level 100 mg/dL (70-99) Calcium Level 8.7 mg/dL (8.5-10.1) Total Bilirubin 0.6 mg/dL (0.2-1.0) Aspartate Amino Transf (AST/SGOT) 24 U/L (15-37) Alanine Aminotransferase (ALT/SGPT) 17 U/L (14-59) Alkaline Phosphatase 113 U/L (46-116) Total Protein 6.9 g/dL (6.4-8.2) Albumin 3.0 g/dL (3.4-5.0) Albumin/Globulin Ratio 0.8 (1.0-1.7) Justicifation of Admission Dx: Justifications for Admission: Justification of Admission Dx: N/A JASPER PEREZ MD Feb 25, 2020 11:55
--- NOTE | 2020-02-25 11:58 | PDOC ---
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 Drains...............................................1/4 inch sigifredo drains Bloos loss..........................................20cc Fluids...............................................see anesthesia sheet Condition..........................................satisfactory Vital Signs Vital Signs Date Time Temp Pulse Resp B/P (MAP) Pulse Ox O2 Delivery O2 Flow Rate FiO2 02/25/20 10:51 97.2 54 20 114/60 97 Room Air 97.2 Labs Laboratory Tests Test 02/25/20 10:45 White Blood Count 8.1 x10^3/uL (4.0-11.0) Red Blood Count 4.65 x10^6/uL (3.50-5.40) Hemoglobin 14.0 g/dL (12.0-15.5) Hematocrit 41.8 % (36.0-47.0) Mean Corpuscular Volume 90 fL (79-100) Mean Corpuscular Hemoglobin 30 pg (25-35) Mean Corpuscular Hemoglobin Concent 34 g/dL (31-37) Red Cell Distribution Width 14.9 % (11.5-14.5) Platelet Count 352 x10^3/uL (140-400) Neutrophils (%) (Auto) 57 % (31-73) Lymphocytes (%) (Auto) 34 % (24-48) Monocytes (%) (Auto) 7 % (0-9) Eosinophils (%) (Auto) 2 % (0-3) Basophils (%) (Auto) 1 % (0-3) Neutrophils # (Auto) 4.6 x10^3/uL (1.8-7.7) Lymphocytes # (Auto) 2.8 x10^3/uL (1.0-4.8) Monocytes # (Auto) 0.5 x10^3/uL (0.0-1.1) Eosinophils # (Auto) 0.2 x10^3/uL (0.0-0.7) Basophils # (Auto) 0.1 x10^3/uL (0.0-0.2) Prothrombin Time 15.2 SEC (11.7-14.0) Prothromb Time International Ratio 1.2 (0.8-1.1) Sodium Level 139 mmol/L (136-145) Potassium Level 4.4 mmol/L (3.5-5.1) Chloride Level 104 mmol/L (98-107) Carbon Dioxide Level 26 mmol/L (21-32) Anion Gap 9 (6-14) Blood Urea Nitrogen 14 mg/dL (7-20) Creatinine 1.0 mg/dL (0.6-1.0) Estimated GFR (Cockcroft-Gault) 54.2 BUN/Creatinine Ratio 14 (6-20) Glucose Level 100 mg/dL (70-99) Calcium Level 8.7 mg/dL (8.5-10.1) Total Bilirubin 0.6 mg/dL (0.2-1.0) Aspartate Amino Transf (AST/SGOT) 24 U/L (15-37) Alanine Aminotransferase (ALT/SGPT) 17 U/L (14-59) Alkaline Phosphatase 113 U/L (46-116) Total Protein 6.9 g/dL (6.4-8.2) Albumin 3.0 g/dL (3.4-5.0) Albumin/Globulin Ratio 0.8 (1.0-1.7) Laboratory Tests Test 02/25/20 10:45 White Blood Count 8.1 x10^3/uL (4.0-11.0) Red Blood Count 4.65 x10^6/uL (3.50-5.40) Hemoglobin 14.0 g/dL (12.0-15.5) Hematocrit 41.8 % (36.0-47.0) Mean Corpuscular Volume 90 fL (79-100) Mean Corpuscular Hemoglobin 30 pg (25-35) Mean Corpuscular Hemoglobin Concent 34 g/dL (31-37) Red Cell Distribution Width 14.9 % (11.5-14.5) Platelet Count 352 x10^3/uL (140-400) Neutrophils (%) (Auto) 57 % (31-73) Lymphocytes (%) (Auto) 34 % (24-48) Monocytes (%) (Auto) 7 % (0-9) Eosinophils (%) (Auto) 2 % (0-3) Basophils (%) (Auto) 1 % (0-3) Neutrophils # (Auto) 4.6 x10^3/uL (1.8-7.7) Lymphocytes # (Auto) 2.8 x10^3/uL (1.0-4.8) Monocytes # (Auto) 0.5 x10^3/uL (0.0-1.1) Eosinophils # (Auto) 0.2 x10^3/uL (0.0-0.7) Basophils # (Auto) 0.1 x10^3/uL (0.0-0.2) Prothrombin Time 15.2 SEC (11.7-14.0) Prothromb Time International Ratio 1.2 (0.8-1.1) Sodium Level 139 mmol/L (136-145) Potassium Level 4.4 mmol/L (3.5-5.1) Chloride Level 104 mmol/L (98-107) Carbon Dioxide Level 26 mmol/L (21-32) Anion Gap 9 (6-14) Blood Urea Nitrogen 14 mg/dL (7-20) Creatinine 1.0 mg/dL (0.6-1.0) Estimated GFR (Cockcroft-Gault) 54.2 BUN/Creatinine Ratio 14 (6-20) Glucose Level 100 mg/dL (70-99) Calcium Level 8.7 mg/dL (8.5-10.1) Total Bilirubin 0.6 mg/dL (0.2-1.0) Aspartate Amino Transf (AST/SGOT) 24 U/L (15-37) Alanine Aminotransferase (ALT/SGPT) 17 U/L (14-59) Alkaline Phosphatase 113 U/L (46-116) Total Protein 6.9 g/dL (6.4-8.2) Albumin 3.0 g/dL (3.4-5.0) Albumin/Globulin Ratio 0.8 (1.0-1.7) Justicifation of Admission Dx: Justifications for Admission: Justification of Admission Dx: N/A JASPER PEREZ MD Feb 25, 2020 11:58
--- NOTE | 2020-02-25 11:59 | HP ---
ADMIT DATE: 02/25/2020 HISTORY OF PRESENT ILLNESS: The patient has had a long history of abdominal surgeries and the last one was a large ventral hernia that was repaired. She has had a number of problems from an accident and resections of organs. She has had now for about 2 years, draining sinus from the upper abdomen. We think this may be related to some type of sinus tract, but now is draining more continuously. She has to change it ____ has a small mass there. This has been going on for about 3 weeks. She does have family problems and has a who is going to have surgery. So the surgery would have to be delayed just a little bit. She does have this mass is not particularly painful as it is draining a fair amount. PHYSICAL EXAMINATION: GENERAL: Shows an alert female in no acute distress. HEENT: Grossly head, eyes, ears, nose and throat were normal. CHEST AND HEART: Unremarkable. ABDOMEN: Had the small mass associated with the draining sinus, which is at the upper abdomen just to the right of the midline. The mass goes laterally to the old what looks like subcostal incision. Otherwise, there is no tenderness and no real redness. There is a small sinus tract, which has been open for about a year or more. It does drain. There is a kind of cloudy reddish serous fluid. It is not foul smelling. Extremities: Grossly normal. ALLERGIES: THE PATIENT IS ALLERGIC TO PENICILLIN AND DEMEROL. REVIEW OF SYSTEMS: As basically negative as she appears to be somewhat more tired than normal. She otherwise is doing relatively well. FAMILY HISTORY: Noncontributory. IMPRESSION: 1. She has a sinus tract and a mass of the abdominal wall that is draining serosanguineous fluid. 2. Obesity. JASPER PEREZ MD DR: CARINE/wilian JOB#: [id number] / [id number]
[2020-02-25] MEDS ORDERED: SEVOFLURANE 31 TO 60 MINUTES. IH ONE (12:38)
[2020-02-25] MEDS ORDERED: ONDANSETRON PF 4 MG/2 ML VIAL. ONE (12:39)
[2020-02-25] MEDS ORDERED: PHENYLEPHRINE in 0.9% NACL PF 1 MG/10 ML SYRINGE. IV ONE (12:48)
--- NOTE | 2020-02-25 13:29 | DISCH ---
DISCHARGE INSTRUCTIONS Condition on Discharge Condition on Discharge: Stable Activity After Discharge Activity Instructions for Disc: Resume previous activity, Activity as tolerated Lifting Instructions after Dis: No heavy lifting, No pulling or pushing, Do not lift >10 pounds Driving Instructions after Dis: Do not drive today Weight Bearing Status after Di: As tolerated Diet after Discharge Diet after Discharge: Clear Liquid, Regular Additional Diet Restrictions: advance to pre op diet prn Wound Incision Care Wound/Incision Care: Ice to area for comfort Other wound/incision instructi: change dressin 3-4/day and irrigate with H2O2 Wound Care Equipment: Dressings Checks after Discharge Checks after discharge: Check blood press - daily, Check your Temp as needed, Weigh Yourself Daily Contacting the DR. after DC Call your doctor for: If your condition worsens Follow-Up Follow up with: amish and make appt to see me in 6 days Treatment/Equipment after DC Adaptive Equipment Issued: None, JASPER Gomes MD Feb 25, 2020 13:28
[2020-02-25] MEDS ORDERED: CLINDAMYCIN 900MG PREMIX 50 ML IV ONE (14:00)
[2020-02-25] MEDS ORDERED: HYDROcodone/APAP 5/325MG 1 TAB TABLET PO PRN (14:15)
[2020-02-25] MEDS ORDERED: HYDROcodone/APAP 5/325MG 1 TAB TABLET PO ONE (14:15)
[2020-02-25] MEDS ORDERED: HYDR-2761 PO (14:27)
[2020-02-25 14:55] VITALS: BP 101/59
--- NOTE | 2020-03-01 02:20 | OP ---
DATE OF SURGERY: SURGEON: Jorge Perez MD PREOPERATIVE DIAGNOSIS: Abscess and draining sinus abdominal wall. POSTOPERATIVE DIAGNOSIS: Abscess and draining sinus abdominal wall. ANESTHESIA: General. PROCEDURE: Incision and drainage, culture of abscess of the abdominal wall and excision foreign body, which was old sutures of previous incisions. TECHNIQUE: Under general anesthesia, the patient was properly prepped and draped in routine fashion. She had had multiple surgeries for extensive trauma to the abdomen and also had a large ventral hernia that had been repaired. There was no mesh there, but apparently the mesh that had been used was absorbable and is not present now. At any rate, in the upper abdomen, there was a mass that started from the sinus tract in the upper abdomen, which went about 4-5 cm or more to the right and cephalad. As such, the small opening was probed and we then carried the incision cephalad and lateral in the right upper abdomen, opening up the small cavity that was there. Cultures were taken. There was no foreign material noted, obviously no mesh and no other abnormalities. The sinus tract was cauterized and at the medial portion, there was a suture looked like a #0 Prolene suture and this was removed without difficulty totally. This was where the small infection had been for some time. Likewise just above the umbilicus where she had another sinus tract, there was a suture there and this was removed as that incision likewise was opened. Cultures had been taken. The procedures were terminated. We decided not to leave after wound completely opened and in fact did place 0.25-inch [place] drains with #3-0 or 4-0 Prolene sutures in-between to semi close the wound or leave it open for drainage. The inferior wound was left completely opened. The procedure was now terminated as dressing was applied. The blood loss was probably 6-8 mL. Fluids given can be obtained from the anesthesia sheet. The drains were the 0.25-inch Nitesh drains in the upper abdominal incision. The condition of the patient was satisfactory as she has returned to the recovery room. JORGE PEREZ MD DR: CARINE/wilian JOB#: [id number] / [id number]
--- NOTE | 2020-03-01 15:08 | PATHOLOGY ---
[facility] Accession Number: [id number] . 01 Material submitted: . abdomen - SUTURES, ABDOMINAL MASS . 02 Diagnosis: Sutures, clinically from abdomen (Gross only). ([facility] 03/01/2020) [facility] 03/01/2020 1354 Local . 02 Electronically signed: . Spencer Mcginnis MD, Pathologist NPI- [id number] . 01 Gross description: . Received fresh labeled "Pittman, Obdulia, sutures" are two blue plastic suture pieces with numerous loops and knots which measure 1.6 x 0.5 x 0.1 cm and 5.0 x 0.2 x 0.2 cm. No identifying peñaloza are present. No gross abnormalities are identified. The specimen is received for gross identification only. ([facility]; 02/29/2020) [facility] 02/29/2020 1130 Local . 02 Pathologist provided ICD-10: Z18.89, R19.00 . 02 CPT . 516184 Specimen Comment: A courtesy copy of this report has been sent to [phone], [phone] Specimen Comment: [id number] Specimen Comment: Report sent to / DR LAUREN Performed at: 01 [facility] [address], [place], [place] [id number] MD José Miguel Rubio MD Phone: [phone] Performed at: 02 [facility] [address], [place] [id number] MD Spencer Mcginnis MD Phone: [phone]
== END 2020-02-25 17:00 | disposition home or self-care (01) ==
LOC: SURG 10:09
PROVIDERS: ATTEND Specialist
DX: L02.211 Cutaneous abscess of abdominal wall (principal); R19.00 Intra-abdominal and pelvic swelling, mass and lump, unspecified site; J45.909 Unspecified asthma, uncomplicated; K21.9 Gastro-esophageal reflux disease without esophagitis; E66.9 Obesity, unspecified; M19.90 Unspecified osteoarthritis, unspecified site; F41.9 Anxiety disorder, unspecified; F32.9 Major depressive disorder, single episode, unspecified; Z90.710 Acquired absence of both cervix and uterus; Z98.890 Other specified postprocedural states; Z79.899 Other long term (current) drug therapy; Z88.0 Allergy status to penicillin; Z88.1 Allergy status to other antibiotic agents; Z88.8 Allergy status to other drugs, medicaments and biological substances; Z88.6 Allergy status to analgesic agent
CPT/HCPCS: 10061; 36415; 80053; 85025; 85610; 87071; 87075; 87102; 88300; J2370; J2405; J2704; J3010; J3490

== ENCOUNTER → 2020-04-16 | Outpatient (CLI) | payer MEDICARE, OTHER ==
[~2020-04-16] MED LIST changes: -CLINDAMYCIN 900MG PREMIX 50 ML IV PRN; +HYDR-2761 PO; -HYDROmorphone 2 MG/ML VIAL IV PRN; -IV RINGERS,LACTATED 1000ML 1,000 ML IV SCH; -MORPHINE SULFATE 2 MG/ML VIAL. IV PRN; -ONDANSETRON PF 4 MG/2 ML VIAL. IV PRN; -PROCHLORPERAZINE 10 MG/2 ML VIAL. IV PRN; -fentaNYL PF VIAL 100 MCG/2 ML VIAL IV PRN
--- NOTE | 2020-04-16 14:33 | CARD ---
MR#: [id number] Date of Study: 04/16/2020 Ordering Physician: AMMON BONDS, Referring Physician: AMMON BONDS, Tech: Tori Garner APPROVED REPORT EXAM: Two-dimensional and M-mode echocardiogram with Doppler and color Doppler. Other Information Quality : AverageHR: 64bpm Technically limited study due to body habitus. INDICATION Dyspnea 2D DIMENSIONS RVDd4.5 (2.9-3.5cm)Left Atrium(2D)4.2 (1.6-4.0cm) IVSd0.9 (0.7-1.1cm)Aortic Root(2D)3.2 (2.0-3.7cm) LVDd4.9 (3.9-5.9cm)LVOT Diameter2.0 (1.8-2.4cm) PWd1.0 (0.7-1.1cm)LVDs3.4 (2.5-4.0cm) FS (%) 30.9 %SV64.5 ml LVEF(%)58.4 (>50%) Aortic Valve AoV Peak Talon.115.0cm/sAoV VTI24.5cm AO Peak GR.5.3mmHgLVOT Peak Talon.90.7cm/s LVOT VTI 22.33cmAO Mean GR.3mmHg JONATHAN (VMAX)1.51cp0LGJ (VTI)2.98cm2 Mitral Valve MV E Xdvcyojh89.9cm/sMV DECEL SPGB418lj MV A Pncbyhce86.7cm/sMV PHN22ju E/A Ratio1.0MVA (PHT)3.74cm2 TDI E/Lateral E'7.0E/Medial E'7.6 Pulmonary Valve PV Peak Fkyyuake31.9cm/sPV Peak Grad.3mmHg Tricuspid Valve TR P. Mlwzaunp996xd/sRAP GYZDERFW7crWy TR Peak Gr.97tyCcYBJY22jsTe Pulmonary Vein S1 Zynavcfd21.1cm/sD2 Wxsbyudh12.2cm/s PVa pzkitfik769qzgi LEFT VENTRICLE The left ventricle is normal size. There is normal left ventricular wall thickness. The left ventricu lar systolic function is normal and the ejection fraction is within normal range. The Ejection Fracti on is 55%. There is normal LV segmental wall motion. Transmitral Doppler flow pattern is Grade I-abno rmal relaxation pattern. RIGHT VENTRICLE The right ventricle is moderately to severely dilated. There is normal right ventricular wall thickne ss. The right ventricular systolic function is normal. ATRIA The left atrium size is normal. The right atrium is moderately dilated. The interatrial septum is int act with no evidence for an atrial septal defect or patent foramen ovale as noted on 2-D or Doppler i maging. AORTIC VALVE The aortic valve is mildly thickened. Doppler and Color Flow revealed trace aortic regurgitation. The re is no significant aortic valvular stenosis. Calculated aortic valve area is 3.13 cm2 with maximum pressure gradient of 6 mmHg and mean pressure gradient of 3 mmHg. MITRAL VALVE The mitral valve is normal in structure and function. There is no evidence of mitral valve prolapse. There is no mitral valve stenosis. Doppler and Color-flow revealed trace mitral regurgitation. TRICUSPID VALVE The tricuspid valve is normal in structure and function. Doppler and Color Flow revealed trace tricus pid regurgitation with an estimated PAP of 26 mmHg. There is no tricuspid valve stenosis. PULMONIC VALVE The pulmonic valve is not well visualized. Doppler and Color Flow revealed no pulmonic valvular regur gitation. There is no pulmonic valvular stenosis. GREAT VESSELS The aortic root is normal in size. The ascending aorta is normal in size. The IVC is normal in size a nd collapses >50% with inspiration. PERICARDIAL EFFUSION There is no evidence of significant pericardial effusion. Critical Notification Critical Value: No <Conclusion> The left ventricular systolic function is normal and the ejection fraction is within normal range. Th e Ejection Fraction is 55%. There is normal LV segmental wall motion. The right ventricle is moderately to severely dilated. The right ventricular systolic function is normal. Clinical correlation recommended for evaluation of RV dilation. Signed by : Donnell Johnson, Electronically Approved : 04/16/2020 14:33:32
== END ==
LOC: ECHO 07:43
PROVIDERS: ATTEND Internal Medicine Cardiovascular Disease
DX: R06.02 Shortness of breath (principal)
CPT/HCPCS: 93306

== ENCOUNTER → 2020-05-12 | Outpatient (CLI) | payer MEDICARE, OTHER ==
[~2020-05-12] MED LIST changes: +FEXO180T81 PO
--- NOTE | 2020-05-12 14:44 | EKG ---
[address] [place] [address] Test Date: 2020-05-12 Test Time: 14:39:48 Pat Name: PIRNCE GARZON Department: Room: Gender: F Clinical Massage Therapist: [place] : 1945 Requested By: LULA NOVA Order Number: [id number] Reading MD: Donnell Johnson MD Measurements Intervals [place] Rate: 61 P: -48 AR: 170 QRS: 17 QRSD: 88 T: 28 QT: 410 QTc: 414 Interpretive Statements SINUS RHYTHM Electronically Signed On 05-13-2020 10:10:26 [employer] by Donnell Johnson MD
[2020-05-12 15:04] LABS: BASO # 0.1 x10^3/uL (0.0-0.2); BASO % 1 % (0-3); EOS # 0.2 x10^3/uL (0.0-0.7); EOS % 3 % (0-3); HEMATOCRIT 44.8 % (36.0-47.0); HEMOGLOBIN 15.2 g/dL (12.0-15.5); LYMPH # 2.6 x10^3/uL (1.0-4.8); LYMPH % 34 % (24-48); MEAN CORPUSCULAR HEMOGLOBIN 30 pg (25-35); MEAN CORPUSCULAR HGB CONC 34 g/dL (31-37); MEAN CORPUSCULAR VOLUME 89 fL (79-100); MONO # 0.7 x10^3/uL (0.0-1.1); MONO % 9 % (0-9); NEUT # 4.2 x10^3/uL (1.8-7.7); NEUT % 54 % (31-73); PLATELET COUNT 323 x10^3/uL (140-400); RED BLOOD COUNT 5.01 x10^6/uL (3.50-5.40); RED CELL DISTRIBUTION WIDTH 15.5 % (11.5-14.5); WHITE BLOOD COUNT 7.8 x10^3/uL (4.0-11.0)
[2020-05-12 15:14] LABS: PROTHROMBIN TIME PATIENT 25.7 SEC (11.7-14.0)
[2020-05-12 15:32] LABS: PLT ESTIMATE ADEQUATE (ADEQUATE)
[2020-05-12 15:33] LABS: ANISOCYTOSIS SLIGHT; HOWELL-JOLLY BODIES PRESENT; POIKILOCYTOSIS SLIGHT; POLYCHROMASIA PRESENT; SCHISTOCYTES FEW
[2020-05-12 15:34] LABS: ACANTHOCYTES PRESENT; SPHEROCYTES OCC; TARGET CELLS PRESENT
[2020-05-12 16:07] LABS: ALBUMIN 3.2 g/dL (3.4-5.0); CALCIUM 9.1 mg/dL (8.5-10.1); CREATININE 0.9 mg/dL (0.6-1.0); GFR 61.2; POTASSIUM 4.1 mmol/L (3.5-5.1)
--- NOTE | 2020-05-12 17:02 | RAD ---
Exam performed: 2 views of the chest. Indication: Reason: PRE OP FOR LEFT KNEE SURGERY / Spl. Instructions: / History: Date of Service: 05/12/2020 3:33 PM . Comparison : None available Findings: Study somewhat limited due to positioning, patient's chin overlies the lung apices bilaterally PA and lateral radiographs of the chest reveal a borderline enlarged cardiomediastinal contour which could be related to position. Pulmonary vascularity is unremarkable. The lungs are clear. No pleural fluid is seen. The visualized osseous structures are unremarkable. Impression: No acute cardiopulmonary process seen. Electronically signed by: Marla Lawler MD (05/12/2020 4:59 PM) [id number]
[2020-05-13 01:25] LABS: HEMOGLOBIN A1C 5.8 % (4.8-5.6)
== END ==
LOC: SURGPAT 14:00
PROVIDERS: ATTEND Orthopaedic Surgery
DX: Z01.818 Encounter for other preprocedural examination (principal); M17.12 Unilateral primary osteoarthritis, left knee
CPT/HCPCS: 36415; 71046; 80048; 82040; 82306; 83036; 85025; 85610; 85730; 86140; 87641; 93005

== ENCOUNTER → 2020-05-21 | Outpatient (CLI) | payer MEDICARE, OTHER | LOC: LAB 10:26 | PROVIDERS: ATTEND Orthopaedic Surgery | DX: Z01.812 Encounter for preprocedural laboratory examination (principal); Z20.822 Contact with and (suspected) exposure to COVID-19; M17.12 Unilateral primary osteoarthritis, left knee | CPT/HCPCS: U0003 ==

== ENCOUNTER 2020-05-25 11:10 | Inpatient (IN) | payer MEDICARE, OTHER ==
[~2020-05-25] VITALS: Ht 170.2 cm; Wt 126.6 kg
[2020-05-25] VITALS (7 sets, daily range): BP systolic 90–117; BP diastolic 52–67
[~2020-05-25 11:10] MED LIST changes: +ACETAMINOPHEN 500 MG TABLET PO PRN; +DEXAMETHASONE SOD PHOS 4 MG/ML VIAL ONE; +GABAPENTIN 300 MG CAPSULE. PO PRN; +KETOROLAC 30MG VIAL 30 MG, ROPIVacaine 0.5% PF 60 ML, EPINEPHrine 0.5 MG in IV NORMAL S... INJ ONE; +KETOROLAC 30MG VIAL 30 MG, ROPIVacaine 0.5% PF 60 ML, EPINEPHrine 0.5 MG, MORPHINE SULF... INJ ONE; +LIDOCAINE 2% PF 5 ML VIAL. ONE; +MELOXICAM 7.5 MG TABLET PO PRN; -OMEP40CA45 PO; +OMEP40CA7 PO; +ONDANSETRON PF 4 MG/2 ML VIAL. ONE; +PHENYLEPHRINE in 0.9% NACL PF 1 MG/10 ML SYRINGE. IV ONE; +PROPOFOL 10 MG/ML (20ML) VIAL. IV ONE; +TRANEXAMIC ACID 1,000 MG in IV NS 50ML -- 1ST BAG INJ ONE; +TRANEXAMIC ACID 1,000 MG in IV NS 50ML -- 2ND BAG INJ ONE; +fentaNYL PF VIAL 100 MCG/2 ML VIAL ONE
--- NOTE | 2020-05-25 11:43 | HP ---
ADMIT DATE: 05/25/2020 PREOPERATIVE HISTORY AND PHYSICAL CHIEF COMPLAINT: Left knee pain. HISTORY OF PRESENT ILLNESS: The patient is a 74-year-old female with right knee arthroplasty in the past about 10 years ago with excellent results and has had progressive left knee pain and has been unresponsive to injection and other nonoperative treatment. She has lost about 50 pounds since having the right knee and is taking warfarin for a history of pulmonary embolism that was stopped by Dr. Meléndez, her primary care physician, preoperatively. PAST MEDICAL HISTORY: Significant for a history of DVT and pulmonary embolism, congestive heart failure, hyperlipidemia, reflux disease, esophagitis, hepatic cyst, hypothyroidism, thyroid nodules. PAST SURGICAL HISTORY: Hernia repairs, cholecystectomy, right total knee arthroplasty, partial hysterectomy, splenectomy, partial gastrectomy, partial intestinal resection, right shoulder replacement and placement of an IVC filter back in 2013. FAMILY HISTORY: She denies any significant family history. SOCIAL HISTORY: Denies smoking, alcohol or drug use. MEDICATIONS: List is reviewed. ALLERGIES: INCLUDE PENICILLIN, DEXAMETHASONE, DIAZEPAM, MEPERIDINE, AND MORPHINE. REVIEW OF SYSTEMS: She does tolerate Percocet, hydrocodone and Dilaudid adequately. Denies any chest pain, shortness of breath, any recent febrile illness, constitutional symptoms, focal weakness, numbness, tingling. She had stopped her warfarin a few days ago at the request of Dr. Meléndez we are going to restart at surgery. PHYSICAL EXAMINATION:. VITAL SIGNS: Per admission sheet. HEENT: Atraumatic, normocephalic. HEART: Regular rate and rhythm. LUNGS: Clear to auscultation bilaterally. ABDOMEN: Benign. EXTREMITIES: Examination of the left knee reveals joint line tenderness medially bit more so than lateral. No gross ligamentous instability. She has moderate patellofemoral crepitus. Well-healed incision on the right knee, midline from total knee arthroplasty and has good ligament stability and patellofemoral tracking. Normal alignment, stability of bilateral hips and ankles with intact motor function, distal pulses, sensation, reflexes, skin in both lower extremities throughout. IMPRESSION: 1. Primary osteoarthritis of left knee with left knee pain. 2. History of total right knee replacement. 3. History of deep venous thrombosis with pulmonary embolism and IVC filter currently placed. TREATMENT PLAN: I had gone over with her the risks, benefits, postoperative course of total knee arthroplasty as she had been unresponsive to weight loss and other nonoperative measures. We went through risks, benefits, postoperative course including the possibility of infection, nerve or blood vessel damage, continued pain, premature wear or loosening, nerve or blood vessel damage, medical or other anesthetic complications among others. All her questions were answered and she wishes to proceed with surgical evaluation and treatment, which will include [facility] observation to follow. LULA NOVA MD DR: DAVID/nts JOB#: [id number] / [id number]
[2020-05-25] MEDS: IV RINGERS,LACTATED 1000ML 1,000 ML IV SCH ×2 (12:00→21:10)
[2020-05-25 12:13] LABS: PROTHROMBIN TIME PATIENT 14.4 SEC (11.7-14.0)
[2020-05-25] MEDS ORDERED: SUCCINYLCHOLINE 200 MG/10 ML VIAL. ONE (12:28)
[2020-05-25] MEDS ORDERED: ROCURONIUM 50 MG/5 ML VIAL. ONE (12:28)
[2020-05-25] MEDS ORDERED: TRANEXAMIC ACID in NS IVPB 100 ML ONE (12:30)
[2020-05-25] MEDS ORDERED: VANCOMYCIN 1 GM VIAL. ONE ×2 (12:41)
[2020-05-25] MEDS ORDERED: CLINDAMYCIN 900MG PREMIX 50 ML IV PRN (13:00)
[2020-05-25] MEDS ORDERED: ePHEDrine PF IN SALINE 50 MG/10 ML SYRINGE. IV ONE (13:42)
[2020-05-25] MEDS ORDERED: fentaNYL PF VIAL 100 MCG/2 ML VIAL ONE ×3 (14:16→15:34)
[2020-05-25] MEDS ORDERED: NEOSTIGMINE METHYLSULFATE 5 MG/5 ML SYRINGE. ONE (14:58)
[2020-05-25] MEDS ORDERED: GLYCOPYRROLATE 1 MG/5 ML VIAL. ONE (14:59)
[2020-05-25] MEDS ORDERED: IV RINGERS,LACTATED 1000ML 1,000 ML IV SCH (15:30)
[2020-05-25] MEDS ORDERED: PROCHLORPERAZINE 10 MG/2 ML VIAL. IVP PRN (15:30)
[2020-05-25] MEDS ORDERED: fentaNYL PF VIAL 100 MCG/2 ML VIAL IVP PRN ×3 (15:30→16:00)
[2020-05-25] MEDS ORDERED: SEVOFLURANE > 120 MINUTES. IH ONE (15:44)
[2020-05-25] MEDS ORDERED: diphenhydrAMINE 50 MG/ML VIAL IVP PRN (16:00)
[2020-05-25] MEDS ORDERED: PROCHLORPERAZINE 5 MG TABLET. PO PRN (16:00)
[2020-05-25] MEDS ORDERED: ZOLPIDEM 5 MG TABLET. PO PRN (16:00)
[2020-05-25] MEDS ORDERED: 0.9 % SODIUM CHLORIDE 10 ML DISP.SYRIN. IV PRN (16:00)
[2020-05-25] MEDS ORDERED: CALCIUM CARBONATE 500 MG TAB.CHEW PO PRN (16:00)
[2020-05-25] MEDS ORDERED: DEXTROSE 50% 25 GM / 50ML DISP.SYRIN. IV PRN (16:00)
--- NOTE | 2020-05-25 16:05 | PDOC4 ---
Operative Note Operative Note Date of surgery: 05/25/2020 Preoperative diagnosis: Left knee degenerative joint disease Postoperative diagnosis: Same Operative procedure: Left total knee arthroplasty Surgeon: Aundrea Assistants: Tate Chase and Ray frost assist Anesthesia: General Estimated blood loss: 75 cc Complications: None Specimens: Cartilage surfaces to pathology Drains: None Operative indications: Please see my dictated preoperative history and physical and clinic notes for detailed operative indications Operative text: Patient was identified procedure verified patient placed in the supine position on the operating table. After adequate amounts of general anesthesia were administered the left lower extremity was prepped and draped in standard sterile fashion with a thigh tourniquet. After timeout was performed patient procedure identified and verified the left lower extremity was exsanguinated by Esmarch bandage tourniquet inflated to 350 mmHg. A midline incision was made with a mid vastus extending to a medial parapatellar approach. Patella was everted fat pad was excised and synovectomy was performed due to the significant irritation observed and amount of excessive intra-articular fat and synovial tissue. Distal femur was drilled and the distal femur was cut in a standard fashion. Proximal tibia cut was made with the extra-articular cutting jig adjusted to achieve alignment with the second toe. Distal femur was sized at a size 8 AP and chamfer cuts were made and flexion extension balancing carried out. A size G tibial component was placed along with a size 8 femur persona standard component with a medial congruent 16 mm trial component. Excellent ligament balance and stability were noted both in flexion and extension. Tibia was drilled and broached and femoral lugs were drilled. Trial components were removed through irrigation carried out with normal saline solution. The following components were then cemented in place with polymethyl methacrylate cement: A size G persona tibial component. A size 8 standard persona femoral component. Excess cement was removed and a vitamin E medial congruent spacer 16 mm height was locked in place. Small osteophytes were removed from the patella but patella was preserved due to presence of adequate remaining cartilage, dilute Betadine lavage was then used and followed up with normal saline solution and pulse lavage. Intra-articular mixture was injected subperiosteally and throughout the joint capsule. Hemovac drain and intra- articular catheter were then placed. 1 g vancomycin was placed in the knee joint and closure of the medial approach was carried out with running #1 PDS strata fix suture. Subcutaneous closure with buried Vicryl suture subcuticular closure with 3-0 strata fix Monocryl. Isak dressing was placed patient was returned to recovery room in stable condition having tolerated procedure well toes were noted to be warm pink following deflation of the tourniquet. Tate Chase service assistant was present for the procedure and assisted in the patient positioning prepping draping retraction and Ray Mary later relieved and assisted in closure and dressings. LULA NOVA MD May 25, 2020 16:05
[2020-05-25] MEDS ORDERED: HYDROmorphone 2 MG/ML VIAL ONE (16:16)
--- NOTE | 2020-05-25 16:17 | RAD ---
INDICATION: Reason: POST OP / Spl. Instructions: / History: COMPARISON: April 07, 2020 IMPRESSION: Left knee: 2 views obtained. Arthroplasty changes without periprosthetic fracture or dislocation. Electronically signed by: Bhupinder Elizabeth MD (05/25/2020 4:14 PM) [id number]
[2020-05-25] MEDS ORDERED: PROCHLORPERAZINE 10 MG/2 ML VIAL. ONE (16:18)
[2020-05-25] MEDS: HYDROmorphone 2 MG/ML VIAL IVP PRN ×4 (16:23→17:05)
[2020-05-25] MEDS: FERROUS SULFATE 325 MG TABLET. PO SCH (17:00)
--- NOTE | 2020-05-25 17:00 | NUR ---
Arrived to unit by bed from PACU. Very drowsy awakens when spoken but falls back to sleep. O2 at @2l per n/c had to increase it to 3l to keep it above 90%. IVF's intact and infusing. Left leg elevated on pillow with ice pack. Dressing on left knee is d/i with KAMRAN. Feet are warm and pedal pulses + bilaterally. SCD on right and ANNE MARIE on left. Side rails up x's 2 with call light in reach. No family present. Cont. monitor.
[2020-05-25] MEDS: ONDANSETRON PF 4 MG/2 ML VIAL. IVP SCH (18:00)
[2020-05-25] MEDS: ONDANSETRON ODT 4 MG TAB.RAPDIS. PO SCH (18:00)
[2020-05-25] MEDS ORDERED: WARFARIN 7.5 MG TABLET. PO ONE (18:00)
[2020-05-25] MEDS: IV NORMAL SALINE 1000ML BAG 1,000 ML IV SCH (19:11)
[2020-05-25] MEDS: CLINDAMYCIN 900MG PREMIX 50 ML IV SCH (19:11)
[2020-05-25] MEDS ORDERED: CLINDAMYCIN 900MG PREMIX 50 ML IV SCH (19:30)
[2020-05-25] MEDS: METOPROLOL TART IMMED RELEASE 25 MG TABLET. PO SCH (21:00)
[2020-05-25] MEDS: buPROPion SR 100 MG TABLET.SA. PO SCH (21:09)
[2020-05-26] MEDS: CLINDAMYCIN 900MG PREMIX 50 ML IV SCH ×2 (01:07→07:20)
[2020-05-26 03:00] VITALS: BP 102/59
[2020-05-26] MEDS: traMADol 50 MG TABLET PO SCH ×3 (05:39→17:12)
[2020-05-26] MEDS: PANTOPRAZOLE 40 MG TABLET.DR. PO SCH (05:39)
[2020-05-26] MEDS: ONDANSETRON PF 4 MG/2 ML VIAL. IVP SCH ×3 (05:41→11:52)
[2020-05-26] MEDS: ONDANSETRON ODT 4 MG TAB.RAPDIS. PO SCH ×3 (05:41→11:52)
[2020-05-26] MEDS: GABAPENTIN 100 MG CAPSULE. PO SCH ×2 (05:41→15:45)
[2020-05-26] MEDS ORDERED: MAGNESIUM HYDROXIDE 2,400 MG/30 ML ORAL.SUSP. PO PRN (06:00)
[2020-05-26 06:33] VITALS: BP 100/53
[2020-05-26] MEDS: FERROUS SULFATE 325 MG TABLET. PO SCH ×2 (08:00→15:44)
[2020-05-26] MEDS: ACETAMINOPHEN 500 MG TABLET PO SCH ×3 (08:38→20:49)
[2020-05-26] MEDS: METOPROLOL TART IMMED RELEASE 25 MG TABLET. PO SCH ×2 (08:39→20:49)
[2020-05-26] MEDS: MULTIVITAMIN with MINERAL TABLET. PO SCH (08:39)
[2020-05-26] MEDS: CETIRIZINE HCL 10 MG TABLET. PO SCH (08:39)
[2020-05-26] MEDS: SENNOSIDES/DOCUSATE 8.6/50MG TABLET. PO SCH (08:39)
[2020-05-26] MEDS: MELOXICAM 7.5 MG TABLET PO SCH (08:39)
[2020-05-26] MEDS: buPROPion SR 100 MG TABLET.SA. PO SCH ×2 (08:56→20:49)
[2020-05-26 10:06] LABS: PROTHROMBIN TIME PATIENT 15.6 SEC (11.7-14.0)
--- NOTE | 2020-05-26 11:37 | NUR ---
Pharmacy Warfarin Dosing Note S:Pharmacy consulted to assist with anticoagulation therapy started 05/25/20 with target INR: 1.6 - 2.5 O:PRINCE GARZON is a 74 year old F with TKA LABS: Last INR: 1.3 Last HGB: 13.7 Last HCT: Last PLT: Last dose of 7.5 mg given on 05/26/20 at 1700 Previous Regimen: Vitamin K given: Drug Interaction Changes: Ongoing Drug Interactions: A:INR of 1.3 is below desired range. Target range for this patient is: 1.6 - 2.5 P: Warfarin dose: 5 mg Today at 1600 Bridge Therapy: Next INR due IN AM Pharmacy anticoagulation service will continue to follow. JASON FINE [facility], 05/26/20 [id number]
--- NOTE | 2020-05-26 11:41 | NUR ---
Pharmacy Warfarin Dosing Note S:Pharmacy consulted to assist with anticoagulation therapy started 05/25/20 with target INR: 1.6 - 2.5 O:PRINCE GARZON is a 74 year old F with TKA LABS: Last INR: 1.3 Last HGB: 13.7 Last HCT: Last PLT: Last dose of 7.5 mg given on 05/25/20 at 1700 Previous Regimen: Vitamin K given: Drug Interaction Changes: Ongoing Drug Interactions: A:INR of 1.3 is below desired range. Target range for this patient is: 1.6 - 2.5 P: Warfarin dose: 5 mg Today at 1600 Bridge Therapy: Next INR due IN AM Pharmacy anticoagulation service will continue to follow. JASON FINE [facility], 05/26/20 [id number]
[2020-05-26] MEDS ORDERED: ONDANSETRON PF 4 MG/2 ML VIAL. IVP PRN (12:00)
[2020-05-26] MEDS ORDERED: ONDANSETRON ODT 4 MG TAB.RAPDIS. PO PRN (12:00)
[2020-05-26] MEDS: IV NORMAL SALINE 1000ML BAG 1,000 ML IV SCH (15:03)
[2020-05-26] MEDS ORDERED: BISACODYL 10 MG SUPP.RECT. PR PRN (16:00)
[2020-05-26] MEDS ORDERED: WARFARIN 5 MG TABLET. PO ONE (16:00)
[2020-05-26 18:07] VITALS: BP 90/49
--- NOTE | 2020-05-26 23:03 | PDOC ---
PROGRESS NOTES Date of Service DATE: 05/26/20 TIME: 23:02 Subjective Subjective Problems overnight: Overall doing well and taking tramadol for pain Objective Vital Signs Vital Signs Date Time Temp Pulse Resp B/P (MAP) Pulse Ox O2 Delivery O2 Flow Rate FiO2 05/26/20 20:49 99 94/53 05/26/20 19:50 Room Air 05/26/20 18:12 94 05/26/20 18:07 97.9 16 97.9 05/26/20 06:45 3.0 Physical Exam On exam Isak dressing clean dry intact she has good stability early range of motion intact distal neurovascular status Labs Laboratory Tests Test 05/25/20 11:45 05/26/20 08:20 Prothrombin Time 14.4 SEC (11.7-14.0) 15.6 SEC (11.7-14.0) Prothromb Time International Ratio 1.2 (0.8-1.1) 1.3 (0.8-1.1) Activated Partial Thromboplast Time 26 SEC (24-38) Hemoglobin 13.7 g/dL (12.0-15.5) Laboratory Tests Test 05/26/20 08:20 Hemoglobin 13.7 g/dL (12.0-15.5) Prothrombin Time 15.6 SEC (11.7-14.0) Prothromb Time International Ratio 1.3 (0.8-1.1) Imaging Postop x-rays show well-placed total knee arthroplasty Assessment Assessment POD#1 total knee arthroplasty Plan Plan of Care Mobilize with physical therapy weightbearing as tolerated standard total knee protocol Warfarin anticoagulation per pharmacy Placement when medically stable Justicifation of Admission Dx: Justifications for Admission: Justification of Admission Dx: N/A LULA NOVA MD May 26, 2020 23:03
[2020-05-27] MEDS: traMADol 50 MG TABLET PO SCH ×4 (00:37→16:55)
[2020-05-27] MEDS: ACETAMINOPHEN 500 MG TABLET PO SCH ×4 (03:44→20:51)
[2020-05-27] MEDS: oxyCODONE IR 5 MG TABLET PO PRN ×3 (03:47→14:48)
[2020-05-27 05:18] LABS: PROTHROMBIN TIME PATIENT 18.6 SEC (11.7-14.0)
[2020-05-27 06:06] VITALS: BP 121/64
[2020-05-27] MEDS: GABAPENTIN 100 MG CAPSULE. PO SCH ×2 (06:07→16:53)
[2020-05-27] MEDS: PANTOPRAZOLE 40 MG TABLET.DR. PO SCH (06:08)
[2020-05-27 07:38] LABS: HEMATOCRIT 43.1 % (36.0-47.0); HEMOGLOBIN 13.7 g/dL (12.0-15.5)
[2020-05-27] MEDS: buPROPion SR 100 MG TABLET.SA. PO SCH ×2 (08:22→20:51)
[2020-05-27] MEDS: MULTIVITAMIN with MINERAL TABLET. PO SCH (08:22)
[2020-05-27] MEDS: SENNOSIDES/DOCUSATE 8.6/50MG TABLET. PO SCH (08:23)
[2020-05-27] MEDS: MELOXICAM 7.5 MG TABLET PO SCH (08:23)
[2020-05-27] MEDS: FERROUS SULFATE 325 MG TABLET. PO SCH ×2 (08:23→16:53)
[2020-05-27] MEDS: CETIRIZINE HCL 10 MG TABLET. PO SCH (08:23)
[2020-05-27 08:26] VITALS: BP 98/57
--- NOTE | 2020-05-27 08:47 | NUR ---
Obdulia is resting in bed.. she is rating her pain 2-3 while resting in bed. states that she had a painful night and is feeling better. she has good motion, sensation and pulses bilateral lower extremities. Addendum: 05/27/20 at 1153 by KELLY MCGEE RN continues to be hypotensive; continue to monitor. no symptoms of dizziness. she had a bolus of fluids and did not walk to therapy yesterday. gradually increased activity
[2020-05-27] MEDS ORDERED: TRAM50TA PO (08:50)
[2020-05-27] MEDS ORDERED: OXYC5CAP PO (08:50)
--- NOTE | 2020-05-27 08:52 | SNU/HH DC ---
DISCHARGE WITH HOME HEALTH DISCHARGE INFORMATION: Condition on Discharge: Stable CODE STATUS: Code Status: Full HOME HEALTH: Face to Face: I certify this patient is under my care and that I, or a nurse practitioner or physician's project administrative assistant working with me, had a face to face encounter that meets the physician face to face encounter requirements with this patient on [05/27/20]. Medical Complications: S/P Joint Replacement Alf For: Assess/Skilled Observatio RN For Eval/Treatment: Yes Physical Therapy For: Evalulation/Treatment Pt Meets Homebound Status: Limited distance walking POST DISCHARGE ORDERS: Activity Instructions for Disc: Activity as tolerated Weight Bearing Status after Di: As tolerated DIET AFTER DISCHARGE: Regular Wound/Incision Care: Ice to area for comfort, Do not change dressing (Keep dressing intact call if saturated otherwise when suction machine stops, cut tail of dressing and tape over to maintain seal until follow-up visit) CHECKS AFTER DISCHARGE: Checks after discharge: Check blood press - daily, Check your Temp as needed, Weigh Yourself Daily FOLLOW-UP: Follow up with: Dr. Guillaume 2 weeks postoperatively Warfarin Follow UP: Dosing and testing per [facility] TREATMENT/EQUIPMENT ORDERS: Adaptive Equipment Issued: Saulo Ashby CERTIFICATION STATEMENT: Certification Statement: Certification Statement: Based on the above finding, I certify that this patient is confined to the home and needs intermittent detention care, physical therapy and/or speech therapy, or continues to need occupational therapy.~ This patient is under my care, and I have initiated the establishment of the plan of care.~ This patient will be followed by myself or a community physician who will periodically review the plan of care. Home Meds Active Scripts Warfarin Sodium (COUMADIN) 5 Mg Tablet, 5 MG PO DAILY for dvt, #30 TAB Prov:EVERTON LAUREN MD 01/19/19 Pantoprazole Sodium (PANTOPRAZOLE SODIUM ) 40 Mg Tablet., 40 MG PO DAILYAC for gerd for 30 Days, #30 TAB.SR Prov:EVERTON LAUREN MD 01/08/19 Reported Medications Fexofenadine Hcl (RANGEL ALLERGY) 180 Mg Tablet, 1 TAB PO DAILY for allergy symptoms for 14 Days, #14 TAB 0 Refills 05/12/20 Hydrocodone Bit/Acetaminophen (HYDROCODONE-APAP 5-325 ) 1 Tab Tablet, 1 TAB PO PRN Q4HRS PRN for PAIN, #35 TAB 0 Refills 02/25/20 Turmeric/Turmeric Root Extract (Turmeric 450-50 mg Capsule) 1 Each Capsule, 1 EACH PO DAILY for vitamin, CAP 12/25/18 Bupropion Hcl (BUPROPION HCL SR) 150 Mg Tablet.er, 200 MG PO BID for depression 12/25/18 Metoprolol Tartrate (METOPROLOL TARTRATE) 25 Mg Tablet, 25 MG PO BID for FOR HYPERTENSION, #60 TAB 0 Refills next dose tonight 03/09 at 9:00 PM 01/28/14 LULA GUILLAUME MD May 27, 2020 08:52
[2020-05-27] MEDS: METOPROLOL TART IMMED RELEASE 25 MG TABLET. PO SCH ×2 (09:00→20:52)
[2020-05-27 11:48] VITALS: BP 87/53
--- NOTE | 2020-05-27 14:19 | NUR ---
Pharmacy Warfarin Dosing Note S: Pharmacy consulted to assist with anticoagulation therapy started 05/25/20 O: PRINCE GARZON is a 74 year old F with TKA LABS: Last INR: 1.6 Last HGB: 13.7 Last HCT: - Last PLT: - Last dose of 5 mg given on 05/26/20 at 1530 Vitamin K given: Ongoing Drug Interactions: MELOXICAM A:INR of 1.6 is within desired range. Target range for this patient is: 1.6 - 2.5 P: Warfarin dose: 3 mg Today at 1600 Bridge Therapy: none, INR in goal range Next INR due 05/28/20 Pharmacy anticoagulation service will continue to follow. JANETTE ARBOLEDA RPH, 05/27/20 1419 Addendum: 05/27/20 at 1634 by JANETTE ARBOLEDA RPH PHA During counseling session, patient states that she takes warfarin prior to admission for a h/o VTE with an INR goal of 2 - 3. Will update dosing to continue her home regimen of 5 mg/day. Janette Arboleda Pharm.D.
[2020-05-27 15:17] VITALS: BP 108/64
[2020-05-27] MEDS: IV NORMAL SALINE 1000ML BAG 1,000 ML IV SCH (16:00)
[2020-05-27] MEDS ORDERED: WARFARIN 3 MG TABLET. PO ONE (16:00)
[2020-05-27] MEDS ORDERED: WARFARIN 5 MG TABLET. PO ONE (17:00)
[2020-05-27 18:51] VITALS: BP 128/55
[2020-05-28] MEDS: traMADol 50 MG TABLET PO SCH ×3 (00:19→12:50)
[2020-05-28] MEDS: ACETAMINOPHEN 500 MG TABLET PO SCH ×3 (03:48→14:34)
[2020-05-28] MEDS: GABAPENTIN 100 MG CAPSULE. PO SCH (06:01)
[2020-05-28] MEDS: PANTOPRAZOLE 40 MG TABLET.DR. PO SCH (06:17)
[2020-05-28 06:24] VITALS: BP 99/58
[2020-05-28 07:22] LABS: PROTHROMBIN TIME PATIENT 22.3 SEC (11.7-14.0)
[2020-05-28] MEDS: FERROUS SULFATE 325 MG TABLET. PO SCH (07:47)
[2020-05-28] MEDS: MELOXICAM 7.5 MG TABLET PO SCH (07:47)
[2020-05-28] MEDS: MULTIVITAMIN with MINERAL TABLET. PO SCH (07:47)
[2020-05-28] MEDS: buPROPion SR 100 MG TABLET.SA. PO SCH (07:48)
[2020-05-28] MEDS: SENNOSIDES/DOCUSATE 8.6/50MG TABLET. PO SCH (07:48)
[2020-05-28] MEDS: CETIRIZINE HCL 10 MG TABLET. PO SCH (09:00)
[2020-05-28] MEDS: METOPROLOL TART IMMED RELEASE 25 MG TABLET. PO SCH (09:00)
[2020-05-28 09:34] LABS: HEMATOCRIT 39.3 % (36.0-47.0); HEMOGLOBIN 13.1 g/dL (12.0-15.5)
[2020-05-28] MEDS: oxyCODONE IR 5 MG TABLET PO PRN (14:34)
[2020-05-28 15:00] VITALS: BP 129/80
--- NOTE | 2020-05-28 15:20 | NUR ---
dismissed to home with
[2020-05-28] MEDS ORDERED: WARFARIN 5 MG TABLET. PO SCH (16:00)
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
--- NOTE | 2020-05-28 18:08 | NUR ---
reviewed discharge instructions with patient. reviewed restrictions to activities of daily living such as bathing , driving ,incisional care follow up with her doctors . she is to make an appt with her cardiologists. list of blood pressures while hospitalized. spoke with HH; they are do do her blood pressure checks along with other activities. informed that Dr. Meléndez is manage and monitoring her Coumadin as prior to surgery--v/u. all questions answered.
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
[2020-07-19] MEDS ORDERED: CHOL10004 PO (09:07)
== END 2020-05-28 15:20 | disposition home health service (06) | DRG 470 ==
LOC: SURG 11:10 → 4 SOUTHEST 16:00 → OBSVTOIN 05-26 11:33
PROVIDERS: ADMIT Orthopaedic Surgery; ATTEND Orthopaedic Surgery
PROC: 0SRD0J9 Replacement of Left Knee Joint with Synthetic Substitute, Cemented, Open Approach (ICD-10-PCS; principal; 2020-05-25 12:45)
DX: M17.12 Unilateral primary osteoarthritis, left knee (principal); E03.9 Hypothyroidism, unspecified; E78.5 Hyperlipidemia, unspecified; I50.9 Heart failure, unspecified; V89.2XXA Person injured in unspecified motor-vehicle accident, traffic, initial encounter; Y92.410 Unspecified street and highway as the place of occurrence of the external cause; Z86.711 Personal history of pulmonary embolism; Z86.718 Personal history of other venous thrombosis and embolism; Z90.3 Acquired absence of stomach [part of]; Z90.711 Acquired absence of uterus with remaining cervical stump; Z90.81 Acquired absence of spleen; Z96.611 Presence of right artificial shoulder joint; Z96.653 Presence of artificial knee joint, bilateral; K21.9 Gastro-esophageal reflux disease without esophagitis; Z88.0 Allergy status to penicillin; Z88.8 Allergy status to other drugs, medicaments and biological substances; Z90.49 Acquired absence of other specified parts of digestive tract; I95.9 Hypotension, unspecified
CPT/HCPCS: 36415; 73560; 85014; 85018; 85610; 85730; 86850; 86900; 86901; 88304; 88311; A4213; A4930; A6223; A6253; A6258; A6402; A6450; A6550; C1713; C1755; G0378; G0379; J0171; J0330; J0690; J0780; J1100; J1170; J1885; J2270; J2370; J2405; J2704; J2710; J2795; J3010; J3370; J3490; J7030; J7120; 97116-GP; 97150-GP; 97530-GP; 97535-GO

== ENCOUNTER 2020-07-17 09:26 | Inpatient (IN) | payer MEDICARE, OTHER ==
[~2020-07-17] VITALS: Ht 170.2 cm; Wt 130.0 kg
[~2020-07-17 09:26] MED LIST changes: -ACETAMINOPHEN 500 MG TABLET PO PRN; -DEXAMETHASONE SOD PHOS 4 MG/ML VIAL ONE; -GABAPENTIN 300 MG CAPSULE. PO PRN; -KETOROLAC 30MG VIAL 30 MG, ROPIVacaine 0.5% PF 60 ML, EPINEPHrine 0.5 MG in IV NORMAL S... INJ ONE; -KETOROLAC 30MG VIAL 30 MG, ROPIVacaine 0.5% PF 60 ML, EPINEPHrine 0.5 MG, MORPHINE SULF... INJ ONE; -LIDOCAINE 2% PF 5 ML VIAL. ONE; -MELOXICAM 7.5 MG TABLET PO PRN; +OMEP40CA45 PO; -OMEP40CA7 PO; -ONDANSETRON PF 4 MG/2 ML VIAL. ONE; -PHENYLEPHRINE in 0.9% NACL PF 1 MG/10 ML SYRINGE. IV ONE; -PROPOFOL 10 MG/ML (20ML) VIAL. IV ONE; -TRANEXAMIC ACID 1,000 MG in IV NS 50ML -- 1ST BAG INJ ONE; -TRANEXAMIC ACID 1,000 MG in IV NS 50ML -- 2ND BAG INJ ONE; -fentaNYL PF VIAL 100 MCG/2 ML VIAL ONE
[2020-07-17] MEDS ORDERED: oxyCODONE/APAP 5/325 1 TAB TABLET PO ONE (11:00)
--- NOTE | 2020-07-17 11:24 | RAD ---
XR KNEE _3 VIEWS_LT History: Reason: R elbow and r wrist pain after fall this morning,left knee pain / Spl. Instructions: / History: Technique: 3 views left knee. Comparison: June 23, 2020 Findings: Left total knee arthroplasty. Normal alignment. No fracture. Knee joint effusion although evaluation is degraded on lateral view due to patient body habitus. Impression: 1. No acute osseous abnormality. 2. Left total knee arthroplasty. 3. Knee joint effusion. Electronically signed by: Be Martinez DO (07/17/2020 11:21 AM) [facility]
--- NOTE | 2020-07-17 11:25 | RAD ---
XR RT WRIST 3VIEWS History: Reason: R elbow and r wrist pain after fall this morning. / Spl. Instructions: / History: Technique: 3 views right wrist Comparison: None. Findings: Acute comminuted intra-articular right distal radial fracture with dorsal angulation and displacement . No additional fracture. 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 Impression: 1. Acute comminuted right distal radial intra-articular fracture with dorsal angulation. Electronically signed by: Be Martinez DO (07/17/2020 11:23 AM) [facility]
--- NOTE | 2020-07-17 11:27 | RAD ---
XR ELBOW COMPLETE_RIGHT 3+ VIEWS History: Reason: R elbow and r wrist pain after fall this morning. / Spl. Instructions: / History: Technique: 4 views right elbow. Comparison: None. Findings: Normal alignment. No fracture. No significant elbow joint effusion. Impression: 1. No acute osseous abnormality. Electronically signed by: Be Martinez DO (07/17/2020 11:25 AM) [facility]
--- NOTE | 2020-07-17 11:31 | ED.ADGEN ---
Past Medical History Past Medical History: DVT, High Cholesterol, Other Additional Past Medical Histor: DVT, PE on chronic coumadin, tachycardia Past Surgical History: Knee Replacement, Other Additional Past Surgical Histo: spleenectomy, 2 hernia repairs and part of stomach removed, IVC filter, rabia Smoking Status: Never Smoker Alcohol Use: None Drug Use: None General Adult EDM: Chief Complaint: WRIST PAIN HPI: HPI: Patient is a 74 year old female, brought to the emergency department by her with complaints of right wrist pain and deformity, right elbow pain, and left knee pain after fall this morning. Patient reported that she was walking from her driveway into her yard when she fell backwards and landed on her hands. Patient denies any head injury or loss of consciousness. She states that she was able to get up on her own and is able to bear weight on her lower extremities but she typically uses a walker for ambulation. Patient denies any headache, neck pain, back pain, abdominal pain, nausea, vomiting, diarrhea, numbness, tingling, or weakness. She denies any chest pain, palpitations, syncope, or dizziness prior to the fall. She reports that she recently had her left knee replaced by Dr. Guillaume and states that she takes Coumadin for DVTs chronically. She currently rates her pain a 8 out of 10 on the pain scale on her left knee, her right wrist is a 10 out of 10. Patient reports she last took a oxycodone at home for her knee at approximately 5:00 this morning. She denies any alleviating factors she states that the pain is worse with palpation of the affected areas. Review of Systems: Review of Systems: Complete ROS is negative unless otherwise noted in HPI. Current Medications: Current Medications Medications (Trade) Dose Ordered Sig/[facility] Start Time Stop Time Status Last Admin Dose Admin Oxycodone/ Acetaminophen (Percocet 5/325) 1 tab 1X ONCE 07/17/20 11:00 07/17/20 11:01 DC 07/17/20 11:10 1 TAB Allergies: Allergies: Allergies Coded Allergies Type Severity Reaction Last Updated Verified Penicillins Allergy Severe Hives, ANAPHYLAXIS 05/25/20 Yes cefazolin Allergy Severe ANAPHYLAXIS 05/25/20 Yes meperidine Allergy Intermediate Hives 05/25/20 Yes adhesive tape Allergy Mild REDNESS 05/25/20 Yes Physical Exam: PE: See Above Constitutional: Well developed, well nourished, no acute distress, non-toxic ap pearance, obese. [] HENT: Normocephalic, atraumatic, bilateral external ears normal, nose normal. [] Eyes: PERRLA, EOMI, conjunctiva normal, no discharge. [] Neck: Normal range of motion, no stridor. [] Cardiovascular:Heart rate regular rhythm Lungs & Thorax: Respirations even and unlabored, no retractions, no respiratory distress Skin: Warm, dry, no erythema, no rash. [] Extremities: Right wrist: Distal tenderness to palpation with obvious deformity, 2+ radial pulse, cap refill less than 2 seconds, sensation intact, ROM limited due to pain, 1+ edema Right elbow: Posterior tenderness to palpation without crepitus or obvious d eformity, ROM limited due to pain, no edema, sensation intact, cap refill less than 2 seconds Left knee: Anterior tenderness to palpation, no obvious deformity, no edema, sensation intact, cap refill less than 2 seconds, ROM intact Neurologic: Alert and oriented X 3, normal motor, normal sensory, no focal deficits noted. [] Psychologic: Affect normal, judgement normal, mood normal. [] Current Patient Data: Vital Signs: Vital Signs Date Time Temp Pulse Resp B/P (MAP) Pulse Ox O2 Delivery O2 Flow Rate FiO2 07/17/20 10:30 98.4 71 18 133/60 (84) 96 Room Air 98.4 EKG: EKG: [] Heart Score: C/O Chest Pain: No Risk Scores: Score 0 - 3: 2.5% MACE over next 6 weeks - Discharge Home Score 4 - 6: 20.3% MACE over next 6 weeks - Admit for Clinical Observation Score 7 - 10: 72.7% MACE over next 6 weeks - Early Invasive Strategies Radiology/Procedures: Radiology/Procedures: PROCEDURE: WRIST 3V RIGHT XR RT WRIST 3VIEWS History: Reason: R elbow and r wrist pain after fall this morning. / Spl. Instructions: / History: Technique: 3 views right wrist Comparison: None. Findings: Acute comminuted intra-articular right distal radial fracture with dorsal angulation and displacement. No additional fracture. 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 Impression: 1. Acute comminuted right distal radial intra-articular fracture with dorsal angulation. PROCEDURE: KNEE LEFT 3V XR KNEE _3 VIEWS_LT History: Reason: R elbow and r wrist pain after fall this morning,left knee pain / Spl. Instructions: / History: Technique: 3 views left knee. Comparison: June 23, 2020 Findings: Left total knee arthroplasty. Normal alignment. No fracture. Knee joint effusion although evaluation is degraded on lateral view due to patient body habitus. Impression: 1. No acute osseous abnormality. 2. Left total knee arthroplasty. 3. Knee joint effusion. PROCEDURE: ELBOW RIGHT 3V XR ELBOW COMPLETE_RIGHT 3+ VIEWS History: Reason: R elbow and r wrist pain after fall this morning. / Spl. Instructions: / History: Technique: 4 views right elbow. Comparison: None. Findings: Normal alignment. No fracture. No significant elbow joint effusion. Impression: 1. No acute osseous abnormality. [] Course & Med Decision Making: Course & Med Decision Making Pertinent Labs and Imaging studies reviewed. (See chart for details) 1154- I spoke with Dr. Jones, patient can eat today. Place pt in volar splint and admit to PCP. 1204- i spoke with Dr. Villagomez who is the admitting physician, and care was assumed following discussion of patient. Will admit patient for right wrist fracture. Advised that CBC, CMP, PT/INR and PTT are pending. Patient will be placed in a splint as requested by Dr. Tejada. Patient's vital signs stable. Patient remains afebrile, appears nontoxic, respirations even and unlabored. Patient will be admitted to the medical/surgical floor. Patient's case and plan of care also discussed with Dr. Reece [] Allyson Disclaimer: Allyson Disclaimer: This electronic medical record was generated, in whole or in part, using a voice recognition dictation system. Departure Departure Impression: Primary Impression: Right wrist fracture Additional Impression: Fall Disposition: ADMITTED INPATIENT Admitting Physician: Aniya Villagomez Condition: STABLE Referrals: EVERTON LAUREN MD (PCP) Splinting Splinting : Location: R wrist Hand-Made Type: orthoglass Splint: volar Pre-Proc Neuro Vasc Exam: normal Post-Proc Neuro Vasc Exam: normal, unchanged from pre-exam Progress Ortho-Glass, volar splint was applied by myself after the affected extremity was covered with a cotton bandage and then heavily padded with cotton, no complications, cap refill less than 2 seconds, sensation intact Attending Signature Attending Signature I have participated in the care of this patient and I have reviewed and agree with all pertinent clinical information above including history, exam, and recommendations. Problem Qualifiers Primary Impression: Right wrist fracture Encounter type: initial encounter Fracture type: closed Qualified Codes: S62.101A - Fracture of unspecified carpal bone, right wrist, initial encounter for closed fracture Additional Impression: Fall Encounter type: initial encounter Qualified Codes: W19.XXXA - Unspecified fall, initial encounter TABITHA WHITE APRN Jul 17, 2020 11:31 DORIS REECE DO Jul 18, 2020 10:48
[2020-07-17] MEDS ORDERED: MORPHINE SULFATE 2 MG/ML VIAL. IV PRN (12:15)
[2020-07-17] MEDS ORDERED: ONDANSETRON PF 4 MG/2 ML VIAL. IV PRN (12:15)
--- NOTE | 2020-07-17 13:12 | PDOC2 ---
CONSULT Date of Consult Date of Consult DATE: 07/17/20 TIME: 13:09 Reason for Consult Reason for Consult: wrist fracture Identification/Chief Complaint Chief Complaint wrist pain and deformity after a fall Source Source: Chart review, Patient History of Present Illness Reason for Visit: Patient is a 74-year old right-handed female, brought to the emergency department by her with complaints of right wrist pain and deformity after a fall the day of admission. She also has right elbow pain, and left knee pain but x-rays were negative of those. Patient reported that she was walking from her driveway into her yard when she fell backwards and landed on her hands. Patient denies any head injury or loss of consciousness. She states that she was able to get up on her own and is able to bear weight on her lower extremities but she typically uses a walker for ambulation. Patient denies any headache, neck pain, back pain, abdominal pain, nausea, vomiting, diarrhea, numbness, tingling, or weakness. She denies any chest pain, palpitations, syncope, or dizziness prior to the fall. She reports that she recently had her left knee replaced by Dr. Guillaume and states that she takes Coumadin for DVTs chronically. She currently rates her pain a 8 out of 10 on the pain scale on her left knee, her right wrist is a 10 out of 10. Patient reports she last took an oxycodone at home for her knee at approximately 5:00 this morning. She denies any alleviating factors she states that the pain is worse with palpation of the affected areas. Past Medical History Cardiovascular: HTN, Hyperlipidemia Pulmonary: Pulmonary embolus GI: GERD Heme/Onc: Other Hepatobiliary: Other Musculoskeletal: Osteoarthritis Renal/: UTI Endocrine: Hyperthyroidism Past Surgical History Past Surgical History: Cholecystectomy, Hernia Repair, Total knee replacement, Hysterectomy, Other Family History Family History: Family History Unknown Social History ALCOHOL: none Drugs: None Lives: with Family Current Problem List Problem List Problems Medical Problems: (1) Fall Status: Acute (2) Right wrist fracture Status: Acute Current Medications Current Medications Current Medications Oxycodone/ Acetaminophen (Percocet 5/325) 1 tab 1X ONCE PO Last administered on 07/17/20at 11:10; Start 07/17/20 at 11:00; Stop 07/17/20 at 11:01; Status DC Ondansetron HCl (Zofran) 4 mg PRN Q8HRS PRN IV NAUSEA/VOMITING; Start 07/17/20 at 12:15; Stop 07/18/20 at 12:14 Morphine Sulfate (Morphine Sulfate) 2 mg PRN Q2HR PRN IV PAIN; Start 07/17/20 at 12:15; Stop 07/18/20 at 12:14; Status Cancel Fentanyl Citrate (Fentanyl 2ml Vial) 50 mcg PRN Q2HRS PRN IVP SEVERE PAIN 7-10; Start 07/17/20 at 12:30 Active Scripts Active Tramadol Hcl 50 Mg Tablet 50 Mg PO Q4HRS PRN Oxycodone Hcl 5 Mg Capsule 5 Mg PO PRN Q6HRS PRN Coumadin (Warfarin Sodium) 5 Mg Tablet 5 Mg PO DAILY Pantoprazole Sodium (Pantoprazole Sodium) 40 Mg Tablet.dr 40 Mg PO DAILYAC 30 Days Reported Jillian Allergy (Fexofenadine Hcl) 180 Mg Tablet 1 Tab PO DAILY 14 Days Hydrocodone-Apap 5-325 (Hydrocodone Bit/Acetaminophen) 1 Tab Tablet 1 Tab PO PRN Q4HRS PRN Turmeric 450-50 mg Capsule (Turmeric/Turmeric Root Extract) 1 Each Capsule 1 Each PO DAILY Bupropion Hcl Sr (Bupropion Hcl) 150 Mg Tablet.er 200 Mg PO BID Metoprolol Tartrate 25 Mg Tablet 25 Mg PO BID next dose tonight 03/09 at 9:00 PM Allergies Allergies: Coded Allergies: Penicillins (Verified Allergy, Severe, Hives, ANAPHYLAXIS, 05/25/20) trouble breathing cefazolin (Verified Allergy, Severe, ANAPHYLAXIS, 05/25/20) meperidine (Verified Allergy, Intermediate, Hives, 05/25/20) adhesive tape (Verified Allergy, Mild, REDNESS, 05/25/20) dexamethasone (Verified Adverse Reaction, Intermediate, agitation, 07/18/20) diazepam (Verified Adverse Reaction, Intermediate, nightmare, 07/18/20) morphine (Verified Adverse Reaction, Intermediate, Nausea and Vomiting, 07/18/20) ROS General: No: Chills, Night Sweats PSYCHOLOGICAL ROS: No: Anxiety, Behavioral Disorder Eyes: No Double vision HEENT: No: Heacaches, Visual Changes, Hearing change Hematological and Lymphatic: YES: Blood Clots Respiratory: No: Cough, Shortness of breath Cardiovascular: No Chest Pain, No Palpitations Gastrointestinal: No Nausea, No Vomiting, No Diarrhea, No Constipation Genitourinary: No Hematuria, No Retention Musculoskeletal: Yes Joint Pain, Yes Pain In: (left knee, recent TKA) Neurological: No Confusion, No Dizziness Skin: No Rash, No Skin Lesion Changes Physical Exam General: Alert, Cooperative HEENT: Atraumatic Lungs: Normal air movement Heart: Regular rate Abdomen: Soft Extremities: No cyanosis, No edema, Other (There is swelling at the wrist area. The alignment is with deformity. There is tenderness at the wrist. Motion is decreased but there is no evidence of specific neurovascular injury. Capillary refill is normal. Pulse is not assessable due to the tenderness of the wrist. Light touch sensation is intact. Motor function is present for the radial ulnar and median nerves. There is no tenderness at the elbow. The skin is intact over the fracture but there is ecchymosis. ) Skin: No breakdown, No significant lesion Neuro: Normal speech, Sensation intact Psych/Mental Status: Mental status NL, Mood NL Vitals VITALS Vital Signs Date Time Temp Pulse Resp B/P (MAP) Pulse Ox O2 Delivery O2 Flow Rate FiO2 07/17/20 10:30 98.4 71 18 133/60 (84) 96 Room Air 98.4 Images Images Report reviewed, images independently reviewed. Displaced distal radius fracture with comminution. Subtle intra-articular extension. PATIENT: PRINCE GARZON ACCOUNT: [id number] : 1945 LOCATION: ER AGE: 74 SEX: F EXAM STATUS: REG ER ORD. PHYSICIAN: TABITHA WHITE APRN REASON: R elbow and r wrist pain after fall this morning. PROCEDURE: WRIST 3V RIGHT XR RT WRIST 3VIEWS History: Reason: R elbow and r wrist pain after fall this morning. / Spl. Instructions: / History: Technique: 3 views right wrist Comparison: None. Findings: Acute comminuted intra-articular right distal radial fracture with dorsal angu lation and displacement. No additional fracture. 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 Impression: 1. Acute comminuted right distal radial intra-articular fracture with dorsal angulation. Electronically signed by: Be Martinez DO (07/17/2020 11:23 AM) [facility] DICTATED and SIGNED BY: BE MARTINEZ DO DATE: 07/17/20 [id number] Assessment/Plan Assessment/Plan Plan for surgery on Sunday. There is a displaced distal radius fracture. We discussed historical treatment such as closed reduction and casting, but such treatment often results in long- term deformity and dysfunction. I recommended open treatment with internal fixation using a volar locked plate and screw construct. The benefits of surgery include improved alignment, and most likely better long-term function. We discussed the potential risks of this treatment which include neurovascular injury, such as to the median nerve or radial artery, risks of tendon injury or tendon problems from the plate, possible need for hardware removal, risks of infection, risks of nonunion or malunion, or other potential surgical or an esthetic complications. Despite potential surgical risks, I believe surgical treatment will give the best result, and I do recommend surgery. She and I discussed the risks benefits and alternatives and she desires to proceed with open treatment internal fixation of the distal radius fracture. SVETLANA LOVE MD Jul 17, 2020 13:12
[2020-07-17 13:16] LABS: BASO # 0.1 x10^3/uL (0.0-0.2); BASO % 1 % (0-3); EOS # 0.1 x10^3/uL (0.0-0.7); EOS % 1 % (0-3); HEMATOCRIT 42.5 % (36.0-47.0); LYMPH # 2.4 x10^3/uL (1.0-4.8); LYMPH % 25 % (24-48); MEAN CORPUSCULAR HEMOGLOBIN 29 pg (25-35); MEAN CORPUSCULAR HGB CONC 33 g/dL (31-37); MEAN CORPUSCULAR VOLUME 88 fL (79-100); MONO # 0.7 x10^3/uL (0.0-1.1); MONO % 7 % (0-9); NEUT # 6.6 x10^3/uL (1.8-7.7); NEUT % 67 % (31-73); PLATELET COUNT 405 x10^3/uL (140-400); RED BLOOD COUNT 4.85 x10^6/uL (3.50-5.40); RED CELL DISTRIBUTION WIDTH 15.4 % (11.5-14.5); WHITE BLOOD COUNT 9.9 x10^3/uL (4.0-11.0)
[2020-07-17 13:25] LABS: CALCIUM 8.9 mg/dL (8.5-10.1); CREATININE 0.9 mg/dL (0.6-1.0); GFR 61.2; POTASSIUM 4.1 mmol/L (3.5-5.1)
[2020-07-17 13:28] LABS: PROTHROMBIN TIME PATIENT 21.9 SEC (11.7-14.0)
[2020-07-17 13:31] LABS: ALBUMIN 3.4 g/dL (3.4-5.0); ALBUMIN/GLOBULIN RATIO 0.8 (1.0-1.7); TOTAL BILIRUBIN 0.4 mg/dL (0.2-1.0); TOTAL PROTEIN 7.7 g/dL (6.4-8.2)
[2020-07-17 13:40] VITALS: BP 109/93
[2020-07-17] MEDS ORDERED: WARF-31 PO (13:52)
[2020-07-17] MEDS ORDERED: WARF7.5T45 PO (13:52)
[2020-07-17] MEDS: fentaNYL PF VIAL 100 MCG/2 ML VIAL IVP PRN ×2 (14:35→21:35)
[2020-07-17 15:00] VITALS: BP 125/59
[2020-07-17 19:00] VITALS: BP 115/59
[2020-07-17] MEDS: HYDROcodone/APAP 7.5/325MG 1 TAB TABLET PO PRN ×2 (19:11→21:35)
[2020-07-17] MEDS: buPROPion SR 100 MG TABLET.SA. PO SCH (21:31)
[2020-07-17 23:00] VITALS: BP 109/61
[2020-07-18] VITALS (12 sets, daily range): BP systolic 92–153; BP diastolic 58–76
[2020-07-18] MEDS: PANTOPRAZOLE 40 MG TABLET.DR. PO SCH (06:06)
[2020-07-18] MEDS: CETIRIZINE HCL 10 MG TABLET. PO SCH (07:01)
[2020-07-18] MEDS: buPROPion SR 100 MG TABLET.SA. PO SCH ×2 (07:01→21:13)
[2020-07-18] MEDS ORDERED: BUPIVACAINE-EPI 0.25% 30 ML VIAL KIT. ONE (07:11)
[2020-07-18 07:17] LABS: BASO # 0.1 x10^3/uL (0.0-0.2); BASO % 1 % (0-3); EOS # 0.3 x10^3/uL (0.0-0.7); EOS % 4 % (0-3); HEMATOCRIT 40.3 % (36.0-47.0); HEMOGLOBIN 13.1 g/dL (12.0-15.5); LYMPH # 2.2 x10^3/uL (1.0-4.8); LYMPH % 32 % (24-48); MEAN CORPUSCULAR HEMOGLOBIN 29 pg (25-35); MEAN CORPUSCULAR HGB CONC 33 g/dL (31-37); MEAN CORPUSCULAR VOLUME 89 fL (79-100); MONO # 0.8 x10^3/uL (0.0-1.1); MONO % 11 % (0-9); NEUT # 3.5 x10^3/uL (1.8-7.7); NEUT % 52 % (31-73); PLATELET COUNT 344 x10^3/uL (140-400); RED BLOOD COUNT 4.53 x10^6/uL (3.50-5.40); RED CELL DISTRIBUTION WIDTH 15.4 % (11.5-14.5); WHITE BLOOD COUNT 6.8 x10^3/uL (4.0-11.0)
[2020-07-18] MEDS ORDERED: fentaNYL PF VIAL 100 MCG/2 ML VIAL ONE ×2 (07:31→09:36)
[2020-07-18] MEDS ORDERED: ONDANSETRON PF 4 MG/2 ML VIAL. ONE (07:34)
[2020-07-18] MEDS ORDERED: PROPOFOL 10 MG/ML (20ML) VIAL. IV ONE (07:34)
[2020-07-18] MEDS ORDERED: LIDOCAINE 2% PF 5 ML VIAL. ONE (07:34)
[2020-07-18] MEDS ORDERED: DEXAMETHASONE SOD PHOS 4 MG/ML VIAL ONE (07:34)
[2020-07-18 07:40] LABS: ALBUMIN 2.8 g/dL (3.4-5.0); ALBUMIN/GLOBULIN RATIO 0.7 (1.0-1.7); CALCIUM 8.4 mg/dL (8.5-10.1); CREATININE 0.8 mg/dL (0.6-1.0); GFR 70.1; POTASSIUM 3.8 mmol/L (3.5-5.1); TOTAL BILIRUBIN 0.6 mg/dL (0.2-1.0); TOTAL PROTEIN 6.9 g/dL (6.4-8.2)
[2020-07-18] MEDS ORDERED: CLINDAMYCIN 900MG PREMIX 50 ML IV PRN (08:00)
[2020-07-18] MEDS ORDERED: IV RINGERS,LACTATED 1000ML 1,000 ML IV SCH (08:30)
[2020-07-18] MEDS ORDERED: fentaNYL PF VIAL 100 MCG/2 ML VIAL IVP PRN (08:30)
[2020-07-18] MEDS ORDERED: HYDROmorphone 2 MG/ML VIAL IVP PRN (08:30)
[2020-07-18] MEDS ORDERED: MORPHINE SULFATE 2 MG/ML VIAL. IVP PRN (08:30)
[2020-07-18] MEDS ORDERED: SEVOFLURANE 31 TO 60 MINUTES. IH ONE (08:37)
--- NOTE | 2020-07-18 09:16 | PDOC4 ---
Operative Note Operative Note Date of Procedure: July 18, 2020 Preoperative diagnosis: Other intraarticular fracture of lower end of right radius, initial encounter for closed fracture 2019 ICD-10-CM Diagnosis Code S52.571A Postoperative diagnosis: Other intraarticular fracture of lower end of right radius, initial encounter for closed fracture 2019 ICD-10-CM Diagnosis Code S52.571A Procedure: Right wrist, open treatment of distal radial intra-articular fracture with internal fixation of 3 or more fragments CPT 49985 Surgeon: Svetlana Jones MD. Brand Strategy Manager: Chapo WOODALL Anesthesia Type: General EBL: 50 mL Specimens: none Drains: none Complications: none Tourniquet time: 28 minutes at 275 mm Hg Implant Company: [employer] Darshana-Loc Volar Distal Radius Locking Plate INDICATION FOR PROCEDURE: The patient is a 74-year-old who fell and had a displaced right distal radius fracture. There is intra-articular involvement. We talked about potential risks of surgery such as bleeding, infection, stiffness, need for hardware removal or other potential surgical or anesthetic complications. The patient stated understanding of the risks, benefits and alternatives. Written consent was obtained and she desired to proceed with surgery. PROCEDURE IN DETAIL: The patient was identified in the preoperative holding area. The correct right wrist was marked by me. The patient was taken to the operating room, where a general anesthetic was used. Preoperative antibiotics were given intravenously. A timeout procedure was performed. Tourniquet was used on the upper right arm. The limb was prepared in sterile fashion with ChloraPrep, and sterile drapes were applied. An Esmarch bandage was used to exsanguinate the limb and the tourniquet was inflated. The volar approach of Eleazar was used distally. Sharp dissection was used and Bovie electrocautery was used as for hemostasis. The flexor carpi radialis tendon was retracted ulnarly to protect the median nerve. The brachioradialis was retracted radially to protect the radial artery. A Weitlaner retractor was also placed. Subperiosteal dissection of the pronator quadratus was performed after an L incision was made and the muscle was reflected across the fracture site. The fracture was easily identified but markedly displaced, comminuted and unstable. This fracture is comminuted at the metaphysis, and has intra- articular fracture components based on the x-rays and radiologist report. Fracture hematoma was cleared with curettes, rongeurs, and irrigation. I used a small image intensifier fluoroscopy unit throughout the case and interpreted all of the images myself. I applied a volar plate, placed a single nonlocking screw to compress the plate to the bone, and again checked the position of the plate on the image intensifier. I adjusted the plate as needed for satisfactory alignment and fixation. Next, I placed locking screws distally and locking and nonlocking screws proximally and I confirmed the reduction with the image intensifier. After satisfactory reduction and satisfactory fixation with all the screws, final images were taken. Copious irrigation was used. The tourniquet was released and Bovie electrocautery was used for hemostasis. Bupivacaine 0.25% with epinephrine was injected. The incision was closed with #2-0 Vicryl in the subcutaneous tissues by me, and #3-0 STRATAFIX Monocryl in the skin by my insurance legal assistant. Xeroform and a sterile dressing and a volar splint were applied by my insurance legal assistant. Needle and sponge counts were correct. There were no apparent complications SVETLANA JONES MD Jul 18, 2020 09:16
[2020-07-18] MEDS ORDERED: PHENYLEPHRINE in 0.9% NACL PF 1 MG/10 ML SYRINGE. IV ONE (09:17)
[2020-07-18] MEDS ORDERED: PROCHLORPERAZINE 10 MG/2 ML VIAL. ONE (09:37)
[2020-07-18] MEDS: PROCHLORPERAZINE 10 MG/2 ML VIAL. IVP PRN ×2 (09:40→09:47)
[2020-07-18] MEDS: fentaNYL PF VIAL 100 MCG/2 ML VIAL IVP PRN ×5 (09:42→21:13)
[2020-07-18] MEDS ORDERED: HYDROmorphone 2 MG/ML VIAL ONE (09:54)
[2020-07-18] MEDS ORDERED: HYDROcodone/APAP 5/325MG 1 TAB TABLET PO PRN (10:45)
--- NOTE | 2020-07-18 10:47 | PDOC ---
Provider Note Date of Service: DATE: 07/18/20 TIME: 10:46 Provider Note Pt seen in recovery unit.H&P dictated.#[id number]. Justifications for Admission Other Justification EVERTON LAUREN MD Jul 18, 2020 10:47
--- NOTE | 2020-07-18 10:59 | HP ---
ADMIT DATE: 07/17/2020 PATIENT LOCATION: [id number]. REASON FOR ADMISSION TO THE HOSPITAL: Wrist fracture status post mechanical fall. HISTORY OF PRESENT ILLNESS: The patient is a 74-year-old female. She had a fall in her driveway when she was walking, fell and landed on her hands. She had right wrist fracture. The patient was brought to the hospital. X-ray shows a wrist fracture, seen by Orthopedic, was taken to surgery this morning. PAST MEDICAL HISTORY: Hypertension; hyperlipidemia; pulmonary embolism, on Coumadin; arthritis; UTI; problem with thyroid. PAST SURGICAL HISTORY: Total knee replacement last month, hysterectomy, hernia repair, gallbladder surgery. FAMILY HISTORY: Unremarkable. SOCIAL HISTORY: Denies smoking, alcohol, or drug abuse. ALLERGIES: PENICILLIN, TAPE, CEFAZOLIN, DEXAMETHASONE, DIAZEPAM, DEMEROL, MORPHINE. MEDICATIONS AT HOME: The patient is on bupropion 150 mg tablets, total she takes 200 twice a day; Jillian 180 daily; pantoprazole daily; takes Coumadin 5 mg Sunday to Sunday and on the weekend 7.5 mg; hydrocodone for pain. REVIEW OF SYMPTOMS: The patient was seen in the recovery, she feels okay. PHYSICAL EXAMINATION: GENERAL: The patient is in the recovery. VITAL SIGNS: Temperature 98, pulse 70, respirations 20, blood pressure 128/61, 96 on nasal cannula. HEENT: Head is atraumatic. Pupils equal. Oral cavity: No congestion. NECK: Supple. CHEST: Symmetrical. CARDIOVASCULAR: S1, S2. LUNGS: Clear. ABDOMEN: Soft. EXTREMITIES: No calf tenderness, no edema. The patient has a dressing in the right wrist, had a surgery done. LABORATORY DATA: White count of 10, hemoglobin 14, platelets 405. INR 1.9. Electrolytes: Sodium 140, potassium 4.1, chloride 103, bicarb 27, BUN 18, creatinine 0.9. LFTs were normal. COVID test negative. Shows acute comminuted right distal fracture with dorsal angulation. FINAL IMPRESSION: 1. Right wrist fracture status post mechanical fall. The patient had surgery done. 2. History of deep venous thrombosis, pulmonary embolism, on Coumadin. 3. History of hypertension, anxiety, depression, thyroid problems. PLAN: At this time, the patient was seen in the recovery, spoke with Orthopedic. We can resume Coumadin from tonight and PT, OT and should be able to go in a couple of days. EVERTON LAUREN MD DR: TAMY/wilian JOB#: [id number] / [id number]
[2020-07-18] MEDS: CLINDAMYCIN 900MG PREMIX 50 ML IV SCH ×2 (13:11→21:14)
--- NOTE | 2020-07-18 13:41 | NUR ---
Patient states fingers all the way up to elbow are almost completely numb. Patient is able to wiggle fingers, good cap refill, and fingers are warm. Notified Dr. Jones, he stated that was normal due to the medications used during surgery. Notifies patient.
[2020-07-18] MEDS: oxyCODONE/APAP 5/325 1 TAB TABLET PO PRN ×2 (15:37→21:13)
[2020-07-18] MEDS ORDERED: WARFARIN 7.5 MG TABLET. PO SCH (16:00)
[2020-07-19] MEDS: oxyCODONE/APAP 5/325 1 TAB TABLET PO PRN ×5 (02:34→20:34)
[2020-07-19 03:48] VITALS: BP 107/55
[2020-07-19] MEDS: PANTOPRAZOLE 40 MG TABLET.DR. PO SCH (05:40)
[2020-07-19 07:08] VITALS: BP 130/67
[2020-07-19] MEDS: CHOLECALCIFEROL (VITAMIN D3) 1,000 UNIT TABLET PO SCH (08:53)
[2020-07-19] MEDS: buPROPion SR 100 MG TABLET.SA. PO SCH ×2 (08:53→20:33)
[2020-07-19] MEDS: CETIRIZINE HCL 10 MG TABLET. PO SCH (08:53)
--- NOTE | 2020-07-19 09:05 | PDOC ---
PROGRESS NOTES Date of Service: DATE: 07/19/20 TIME: 09:03 Subjective Subjective feels good pain rt wrist Objective Objective Vital Signs Date Time Temp Pulse Resp B/P (MAP) Pulse Ox O2 Delivery O2 Flow Rate FiO2 07/19/20 08:52 Room Air 07/19/20 07:08 98.3 84 18 130/67 (88) 95 98.3 07/19/20 03:34 2.0 Intake and Output 07/19/20 07:00 Intake Total 2350 ml Output Total 50 ml Balance 2300 ml Intake Oral 400 ml IV Total 1950 ml Output Estimated Blood Loss 50 ml # Voids 2 Physical Exam Abdomen: Soft Heart: Regular rate Extremities: No cyanosis, No edema, Other (There is swelling at the wrist area. The alignment is with deformity. There is tenderness at the wrist. Motion is decreased but there is no evidence of specific neurovascular injury. Capillary refill is normal. Pulse is not assessable due to the tenderness of the wrist. Light touch sensation is intact. Motor function is present for the radial ulnar and median nerves. There is no tenderness at the elbow. The skin is intact over the fracture but there is ecchymosis. ) General: Alert, Cooperative HEENT: Atraumatic Lungs: Normal air movement MUSCULOSKELETAL: Osteoarthritic changes both hands, Other Neuro: Normal speech, Sensation intact Psych/Mental Status: Mental status NL, Mood NL Skin: No breakdown, No significant lesion COMMENT dressing r wrist Diagnosis Problem List Problems Medical Problems: (1) Fall Status: Acute (2) Other intraarticular fracture of lower end of right radius, initial encounter for closed fracture Status: Acute (3) Right wrist fracture Status: Acute Assessment Assessment Problems Medical Problems: (1) Fall Status: Acute (2) Other intraarticular fracture of lower end of right radius, initial encounter for closed fracture Status: Acute (3) Right wrist fracture Status: Acute FINAL IMPRESSION: 1. Right wrist fracture status post mechanical fall. The patient had surgery done ORIF. 2. History of deep venous thrombosis, pulmonary embolism, on Coumadin. 3. History of hypertension, anxiety, depression, thyroid problems. PLAN: May be able to d/c home today . labs good continue coumadin lortab for pain. At this time, the patient was seen in the recovery, spoke with Orthopedic. We can resume Coumadin from tonight and PT, OT and should be able to go in a couple of days. Plan Plan of Care Problems Medical Problems: (1) Fall Status: Acute (2) Other intraarticular fracture of lower end of right radius, initial encounter for closed fracture Status: Acute (3) Right wrist fracture Status: Acute Comment Review of Relevant I have reviewed the following items keny (where applicable) has been applied. Medications Current Medications Acetaminophen/ Hydrocodone Bitart (Lortab 5/325) 1 tab PRN Q4HRS PRN PO PAIN- 2nd choice; Start 07/18/20 at 10:45 Clindamycin Phosphate 50 ml @ 100 mls/hr Q6H IV Last administered on 07/18/20at 21:14; Start 07/18/20 at 14:00; Stop 07/18/20 at 20:29; Status DC Fentanyl Citrate (Fentanyl 2ml Vial) 100 mcg STK-MED ONCE .ROUTE ; Start 07/18/20 at 09:36; Stop 07/18/20 at 09:37; Status DC Hydromorphone HCl (Dilaudid) 2 mg STK-MED ONCE .ROUTE ; Start 07/18/20 at 09:54; Stop 07/18/20 at 09:54; Status DC Oxycodone/ Acetaminophen (Percocet 5/325) 1 tab PRN Q4HRS PRN PO MILD PAIN 1-3 Last administered on 07/19/20at 02:34; Start 07/18/20 at 09:30 Oxycodone/ Acetaminophen (Percocet 5/325) 2 tab PRN Q4HRS PRN PO MODERATE PAIN, SEVERE PAIN Last administered on 07/19/20at 07:16; Start 07/18/20 at 09:45 Phenylephrine HCl (PHENYLEPHRINE in 0.9% NACL PF) 1 mg STK-MED ONCE IV ; Start 07/18/20 at 09:17; Stop 07/18/20 at 09:17; Status DC Prochlorperazine Edisylate (Compazine) 10 mg STK-MED ONCE .ROUTE ; Start 07/18/20 at 09:37; Stop 07/18/20 at 09:37; Status DC Vitamin D (Vitamin D3) 1,000 unit DAILY PO Last administered on 07/19/20at 08:53; Start 07/19/20 at 09:00 Warfarin Sodium (Coumadin Per Physician) 1 each PRN DAILY PRN MC SEE COMMENTS; Start 07/18/20 at 11:00 Warfarin Sodium (Coumadin) 5 mg QM-F PO ; Start 07/19/20 at 16:00 Warfarin Sodium (Coumadin) 7.5 mg QSASU PO Last administered on 07/18/20at 15:37; Start 07/18/20 at 16:00 Vitals/I & O Vital Sign - Last 24 Hours 07/18/20 07/18/20 07/18/20 07/18/20 09:29 09:33 09:42 09:45 Temp 98.5 98.5 Pulse 86 82 Resp 20 20 20 B/P (MAP) 124/68 130/49 Pulse Ox 95 100 100 O2 Delivery Room Air Mask Simple Mask O2 Flow Rate 10 10.0 10.0 07/18/20 07/18/20 07/18/20 07/18/20 09:53 10:00 10:00 10:15 Pulse 78 86 Resp 15 14 16 20 B/P (MAP) 142/71 141/67 Pulse Ox 99 99 99 99 O2 Delivery Simple Mask Simple Mask Simple Mask Room Air Simple Mask O2 Flow Rate 10.0 10.0 10.0 07/18/20 07/18/20 07/18/20 07/18/20 10:30 10:45 11:02 11:16 Temp 97.7 97.7 Pulse 76 72 78 73 Resp 16 16 17 17 B/P (MAP) 128/61 128/60 123/67 (85) 141/66 (91) Pulse Ox 96 96 96 97 O2 Delivery Nasal Cannula Nasal Cannula Room Air Room Air O2 Flow Rate 2 2 07/18/20 07/18/20 07/18/20 07/18/20 11:31 11:46 12:01 12:31 Pulse 73 80 75 89 Resp 17 18 18 18 B/P (MAP) 129/65 (86) 130/64 (86) 153/76 (101) 129/60 (83) Pulse Ox 97 82 99 97 O2 Delivery Room Air Room Air Room Air Room Air 07/18/20 07/18/20 07/18/20 07/18/20 13:01 15:00 19:00 20:00 Temp 97.6 97.6 Pulse 89 79 106 Resp 17 17 20 B/P (MAP) 126/60 (82) 130/62 (84) 117/68 (84) Pulse Ox 97 97 95 O2 Delivery Room Air Room Air Room Air Room Air 07/18/20 07/18/20 07/18/20 07/18/20 21:13 21:13 21:43 22:13 Resp 18 Pulse Ox 95 95 98 98 O2 Delivery Nasal Cannula Nasal Cannula Nasal Cannula Nasal Cannula O2 Flow Rate 2.0 2.0 2.0 2.0 07/18/20 07/19/20 07/19/20 07/19/20 23:03 02:34 02:34 03:34 Temp 98.1 98.1 Pulse 92 Resp B/P (MAP) 119/62 (81) Pulse Ox 98 98 95 98 O2 Delivery Room Air Room Air Room Air Room Air O2 Flow Rate 2.0 2.0 2.0 07/19/20 07/19/20 07/19/20 07/19/20 03:34 03:34 03:48 07:08 Temp 98.0 98.3 98.0 98.3 Pulse 93 84 Resp B/P (MAP) 107/55 (72) 130/67 (88) Pulse Ox 95 95 95 95 O2 Delivery Room Air Room Air Nasal Cannula O2 Flow Rate 2.0 2.0 07/19/20 07/19/20 07:16 08:52 O2 Delivery Room Air Room Air Intake and Output 07/18/20 07/18/20 07/19/20 15:00 23:00 07:00 Intake Total 1950 ml 400 ml Output Total 50 ml Balance 1900 ml 400 ml Justifications for Admission Other Justification EVERTON LAUREN MD Jul 19, 2020 09:05
[2020-07-19] MEDS ORDERED: [UNRECOGNIZED DRUG - CODE] PO (09:07)
[2020-07-19 10:40] VITALS: BP 105/80
[2020-07-19 14:24] LABS: PROTHROMBIN TIME PATIENT 25.1 SEC (11.7-14.0)
[2020-07-19 14:25] VITALS: BP 127/59
[2020-07-19] MEDS ORDERED: WARFARIN 5 MG TABLET. PO SCH (16:00)
[2020-07-19] MEDS: fentaNYL PF VIAL 100 MCG/2 ML VIAL IVP PRN (16:22)
--- NOTE | 2020-07-19 16:34 | NUR ---
Pt. concerned about pain not managed by PO meds this afternoon. Dr. Meléndez paged.
[2020-07-19 19:00] VITALS: BP 97/71
[2020-07-19 23:00] VITALS: BP 114/56
[2020-07-20 03:00] VITALS: BP 107/60
[2020-07-20] MEDS: oxyCODONE/APAP 5/325 1 TAB TABLET PO PRN (04:22)
[2020-07-20 07:00] VITALS: BP 107/66
[2020-07-20] MEDS: CETIRIZINE HCL 10 MG TABLET. PO SCH (08:49)
[2020-07-20] MEDS: buPROPion SR 100 MG TABLET.SA. PO SCH (08:49)
[2020-07-20] MEDS: PANTOPRAZOLE 40 MG TABLET.DR. PO SCH (08:49)
[2020-07-20] MEDS: CHOLECALCIFEROL (VITAMIN D3) 1,000 UNIT TABLET PO SCH (08:49)
--- NOTE | 2020-07-20 08:55 | NUR ---
Lobo wrap placed to upper Fa reddened area, soft roll and outer lobo wrap replaced.
--- NOTE | 2020-07-20 09:07 | PDOC ---
PROGRESS NOTES Date of Service: DATE: 07/20/20 TIME: 09:03 Subjective Subjective c/o rash and itvhing under the dressing rt arm Objective Objective Vital Signs Date Time Temp Pulse Resp B/P (MAP) Pulse Ox O2 Delivery O2 Flow Rate FiO2 07/20/20 07:35 Room Air 07/20/20 07:00 98.3 85 16 107/66 (80) 92 98.3 Intake and Output 07/20/20 07:00 Intake Total 240 ml Output Total 0 ml Balance 240 ml Intake Oral 240 ml Output Urine Total 0 ml # Voids 1 Physical Exam Abdomen: Soft Heart: Regular rate Extremities: No cyanosis, No edema, Other (There is swelling at the wrist area. The alignment is with deformity. There is tenderness at the wrist. Motion is decreased but there is no evidence of specific neurovascular injury. Capillary refill is normal. Pulse is not assessable due to the tenderness of the wrist. Light touch sensation is intact. Motor function is present for the radial ulnar and median nerves. There is no tenderness at the elbow. The skin is intact over the fracture but there is ecchymosis. ) General: Alert, Cooperative HEENT: Atraumatic Lungs: Normal air movement MUSCULOSKELETAL: Osteoarthritic changes both hands, Other Neuro: Normal speech, Sensation intact Psych/Mental Status: Mental status NL, Mood NL Skin: No breakdown, No significant lesion COMMENT dressing r wrist, mild redness and itching/ dermatitis Diagnosis Problem List Problems Medical Problems: (1) Fall Status: Acute (2) Other intraarticular fracture of lower end of right radius, initial encounter for closed fracture Status: Acute (3) Right wrist fracture Status: Acute Assessment Assessment Problems Medical Problems: (1) Fall Status: Acute (2) Other intraarticular fracture of lower end of right radius, initial encounter for closed fracture Status: Acute (3) Right wrist fracture Status: Acute FINAL IMPRESSION:itching and redness under the dressing ,? allergy to dressings 1. Right wrist fracture status post mechanical fall. The patient had surgery done ORIF. 2. History of deep venous thrombosis, pulmonary embolism, on Coumadin. 3. History of hypertension, anxiety, depression, thyroid problems. PLAN: change dressing May be able to d/c home today . labs good , continue coumadin, inr 2.5 percocet for pain . At this time, the patient was seen in the recovery, spoke with Orthopedic. We can resume Coumadin from tonight and PT, OT and should be able to go in a couple of days. Plan Plan of Care Problems Medical Problems: (1) Fall Status: Acute (2) Other intraarticular fracture of lower end of right radius, initial encount er for closed fracture Status: Acute (3) Right wrist fracture Status: Acute Comment Review of Relevant I have reviewed the following items keny (where applicable) has been applied. Labs Laboratory Tests Test 07/19/20 13:50 Prothrombin Time 25.1 SEC (11.7-14.0) Prothromb Time International Ratio 2.3 (0.8-1.1) Medications Current Medications Warfarin Sodium (Coumadin) 5 mg QM-F PO Last administered on 07/19/20at 16:19; Start 07/19/20 at 16:00 Vitals/I & O Vital Sign - Last 24 Hours 07/19/20 07/19/20 07/19/20 07/19/20 10:40 13:56 14:25 16:22 Temp 97.8 97.3 97.8 97.3 Pulse 92 89 Resp 18 18 B/P (MAP) 105/80 (88) 127/59 (81) Pulse Ox 96 95 O2 Delivery Room Air Room Air 07/19/20 07/19/20 07/19/20 07/19/20 17:11 19:00 19:10 20:34 Temp 97.8 97.8 Pulse 90 Resp 18 16 B/P (MAP) 97/71 (80) Pulse Ox 92 O2 Delivery Room Air Room Air Room Air Room Air 07/19/20 07/19/20 07/20/20 07/20/20 21:34 23:00 03:00 04:22 Temp 98.4 98.3 98.4 98.3 Pulse 98 95 Resp 17 18 16 17 B/P (MAP) 114/56 (75) 107/60 (76) Pulse Ox 94 94 O2 Delivery Room Air Room Air Room Air Room Air 07/20/20 07/20/20 07/20/20 05:20 07:00 07:35 Temp 98.3 98.3 Pulse 85 Resp 16 16 B/P (MAP) 107/66 (80) Pulse Ox 92 O2 Delivery Room Air Room Air Room Air Intake and Output 07/19/20 07/19/20 07/20/20 15:00 23:00 07:00 Intake Total 240 ml Output Total 0 ml Balance 240 ml Justifications for Admission Other Justification EVERTON LAUREN MD Jul 20, 2020 09:07
[2020-07-20] MEDS ORDERED: OXYC1TAB22 PO (09:10)
--- NOTE | 2020-07-20 09:39 | NUR ---
SW following. Discussed with RN, pt from home with , room air, regular diet, COVID-19 negative. Discharge order for home with self care. SW will continue to follow.
--- NOTE | 2020-07-20 10:20 | NUR ---
Pt. discharged to home with Rx, verbalized understanding of discharge instructions. R arm splint CDI.
== END 2020-07-20 10:20 | disposition home or self-care (01) | DRG 511 ==
LOC: ER 09:26 → 4 NORTH 11:00
PROVIDERS: ADMIT Internal Medicine; ATTEND Internal Medicine
PROC: 0PSH04Z Reposition Right Radius with Internal Fixation Device, Open Approach (ICD-10-PCS; principal; 2020-07-18 08:00)
DX: S52.571A Other intraarticular fracture of lower end of right radius, initial encounter for closed fracture (principal); Z68.41 Body mass index [BMI] 40.0-44.9, adult; F32.9 Major depressive disorder, single episode, unspecified; F41.9 Anxiety disorder, unspecified; K21.9 Gastro-esophageal reflux disease without esophagitis; M19.90 Unspecified osteoarthritis, unspecified site; E78.00 Pure hypercholesterolemia, unspecified; I10 Essential (primary) hypertension; E78.5 Hyperlipidemia, unspecified; Z20.822 Contact with and (suspected) exposure to COVID-19; Z96.652 Presence of left artificial knee joint; W19.XXXA Unspecified fall, initial encounter; Y93.01 Activity, walking, marching and hiking; Y92.096 Garden or yard of other non-institutional residence as the place of occurrence of the external cause; Y99.8 Other external cause status; Z90.49 Acquired absence of other specified parts of digestive tract; Z90.81 Acquired absence of spleen; Z90.710 Acquired absence of both cervix and uterus; Z88.5 Allergy status to narcotic agent; Z88.1 Allergy status to other antibiotic agents; Z91.048 Other nonmedicinal substance allergy status; Z88.0 Allergy status to penicillin; Z88.8 Allergy status to other drugs, medicaments and biological substances; Z79.01 Long term (current) use of anticoagulants; Z86.718 Personal history of other venous thrombosis and embolism; Z86.711 Personal history of pulmonary embolism; E66.9 Obesity, unspecified
CPT/HCPCS: 29125; 36415; 73080; 73110; 73562; 80053; 82306; 85025; 85610; 85730; 87426; 99285; J0780; J1100; J1170; J2370; J2405; J2704; J3010; J3490; J7120; U0003; U0005; 97535-GO; G0378